=== PATIENT | male | born 1945 | race Caucasian/White ===

== ENCOUNTER 2024-02-08 19:06 | Outpatient (REF) | payer MEDICARE, MEDICAID, SELFPAY ==
[2024-02-08 12:23] LABS: Anion Gap 10.4 mmol/L (3-11); BUN 36 mg/dL (7-18); CO2 23.6 mmol/L (21.0-32.0); CREATININE 1.9 mg/dL (0.70-1.30); Calcium 9.3 mg/dL (8.5-10.1); Chloride 108 mmol/L (98-107); Estimated GFR 35.44 (mL/min/1.73m2); Glucose 90 mg/dL (74-106); Potassium 4.7 mmol/L (3.5-5.1); Sodium 142 mmol/L (136-145)
[2024-02-08 12:37] LABS: Abs Immature Grans 0.25 10^3/uL (0.0-0.06); Absolute Basophil Count 0.27 10^3/uL (0.0-0.2); Absolute Lymphocyte Count 2.67 10^3/uL (1.2-3.4); Absolute Monocyte Count 1.14 10^3/uL (0.1-0.8); Absolute Neutrophil Count 5.77 10^3/uL (1.2-6.7); Basophils % 2.6; Eosinophils % 2.9; HCT 30.9 % (40.0-50.0); HGB 9.3 g/dL (13.5-17.5); Immature Grans % 2.4; Lymphocytes % 25.7; MCHC 30.1 % (32.0-36.0); MCV 90 fL (80-95); MPV 9.6 fL (8.0-11.0); Neutrophils % 55.4; RBC 3.44 10^6/uL (4.36-5.78); RDW 15.5 % (11.8-14.1); RDW-SD 50.4 fL
[2024-02-08 13:12] LABS: Diff Comment Diff Reviewed; Platelet Count 926 10^3/uL (130-400); RBC Morphology Normal
== END 2024-02-08 19:07 | disposition home or self-care (01) ==
LOC: LBO 19:06
PROVIDERS: Visit Provider Family Medicine
DX: S42.302D Unspecified fracture of shaft of humerus, left arm, subsequent encounter for fracture with routine healing (principal); I21.4 Non-ST elevation (NSTEMI) myocardial infarction; N18.9 Chronic kidney disease, unspecified; N39.0 Urinary tract infection, site not specified; X58.XXXD Exposure to other specified factors, subsequent encounter
CPT/HCPCS: 80048; 85025

== ENCOUNTER 2024-02-18 07:33 | Outpatient (REF) | payer SELFPAY ==
[2024-02-18 09:38] LABS: Bilirubin Negative (Negative); Blood Negative (Negative); Clarity Clear (Clear); Glucose 500 mg/dL (Negative); Ketones Negative (Negative); Leukocyte Esterase Negative (Negative); Nitrite Negative (Negative); Urobilinogen 0.2 mg/dL (Up to 0.2)
== END 2024-02-18 07:34 | disposition home or self-care (01) ==
LOC: LBN 07:33
PROVIDERS: Visit Provider Nurse Practitioner Family
DX: N39.0 Urinary tract infection, site not specified (principal); E11.9 Type 2 diabetes mellitus without complications
CPT/HCPCS: 81003

== ENCOUNTER 2024-02-19 23:19 | Emergency (ER) | payer MEDICARE, MEDICAID, SELFPAY ==
[2024-02-19 23:16] VITALS: BP 120/83; PULSE 66; RESP 16; TEMP 36.5; O2SAT 98
[2024-02-19 23:31] VITALS: BP 134/60; PULSE 66
--- NOTE | 2024-02-19 23:44 | DI.RAD_ITS ---
Exam(s) CT PELVIC WO XR PELVIS AP EXAM: CT PELVIC WO and XR pelvis AP CLINICAL HISTORY: rt femur fx. TECHNIQUE: Imaging Protocol: Axial computed tomography images with coronal and sagittal reformatted images were created and reviewed. One AP x-ray view of the pelvis was obtained. COMPARISON: There are no priors for comparison. FINDINGS: There is a fracture through the base of the neck of the right femur. The fracture appears impacted. The femoral head is seated within the acetabulum. The sacroiliac joints and symphysis pubis are int act. There are mild degenerative changes seen in the lower visualized lumbar spine. There is mild j oint space narrowing of the hips bilaterally. Bones: There is an acute fracture of the right femoral neck. There is impaction and mild angulation of the fracture noted. The femoral head is seated within the acetabulum. The bones appear osteopen ic. No cellulitic or osteomyelitic changes are identified. There are degenerative changes seen in t he lower visualized lumbar spine. The sacroiliac joints are well maintained. The symphysis pubis is unremarkable. No lytic or sclerotic lesions are identified. Soft Tissues: Atherosclerotic calcifications is seen of the abdominal aorta and its runoff. There is diverticulosis of the colon without evidence of acute diverticulitis. There is diffuse thickening o f the wall of the urinary bladder. There is a moderate amount of stool in the colon which may reflec t impaction. IMPRESSION: 1. There is an acute fracture of the right femoral neck with impaction and mild angulation. 2. Diffuse thickening of the wall of the urinary bladder. Differential considerations include cystit is, underdistention or chronic bladder outlet obstruction. Please correlate clinically. 3. Findings of fecal impaction. RADIATION DOSE DELIVERED: 716.12mGy.cm Total DLP 716.12mGy.cmTotal DLP DATA REPOSITORY: All CT scans at this facility are submitted to the National Radiology Data Registry (NRDR) Dose Index Registry (DIR) with the [employer] ([employer]). RADIATION OPTIMIZATION: All CT scans at this facility use at least one of these dose optimization te chniques: automated exposure control; mA and/or kV adjustment per patient size (includes targeted exa ms where dose is matched to clinical indication); or iterative reconstruction.
[2024-02-19 23:46] VITALS: BP 153/59; PULSE 66
[2024-02-20] VITALS (14 sets, daily range): BP systolic 110–134; BP diastolic 47–69; PULSE 64–69; RESP 16; TEMP 36.4; O2SAT 98
[2024-02-20] MEDS: Ketorolac 15 MG/ML VIAL IM (00:20)
[2024-02-20] MEDS: Acetaminophen 500 MG TAB 1000 MG PO (00:20)
--- NOTE | 2024-02-20 01:50 | DI.VRAD_ITS ---
PROCEDURE INFORMATION: Exam: XR Pelvis Exam date and time: 02/20/2024 12:25 AM Age: 78 years old Clinical indication: Injury or trauma; Blunt trauma (contusions or hematomas); Bilateral; Hip; Injury date: 02/19/24; Injury details: Fall, right leg externally rotated \T\ foreshortened TECHNIQUE: Imaging protocol: Radiologic exam of the pelvis. Views: 1 or 2 view. COMPARISON: No relevant prior studies available. FINDINGS: Bones/joints: Acute mildly displaced right femoral neck fracture. No femoral head dislocation. Soft tissues: Unremarkable. IMPRESSION: Acute mildly displaced right femoral neck fracture. Dictated and Authenticated by: Leoncio Payton MD. Ordering:MARGO Fitzgerald MD
--- NOTE | 2024-02-20 01:52 | DI.VRAD_ITS ---
PROCEDURE INFORMATION: Exam: XR Left Femur Exam date and time: 02/20/2024 12:30 AM Age: 78 years old Clinical indication: Injury or trauma; Blunt trauma; Hip; Bilateral; Injury date: 02/20/24; Injury details: Fall, pain TECHNIQUE: Imaging protocol: Radiologic exam of the left femur. Views: 2 views. COMPARISON: CR XR PELVIS AP 02/20/2024 12:25 AM FINDINGS: Bones/joints: Left knee osteoarthritis. No fracture. Soft tissues: Unremarkable. IMPRESSION: No fracture. Dictated and Authenticated by: Leoncio Payton MD. Ordering:MARGO Fitzgerald MD
--- NOTE | 2024-02-20 01:54 | DI.VRAD_ITS ---
PROCEDURE INFORMATION: Exam: XR Right Femur Exam date and time: 02/20/2024 12:27 AM Age: 78 years old Clinical indication: Injury or trauma; Blunt trauma; Hip; Bilateral; Injury date: 02/19/24; Injury details: Fall, right leg externally rotated \T\ foreshortened TECHNIQUE: Imaging protocol: Radiologic exam of the right femur. Views: 2 views. COMPARISON: CR XR PELVIS AP 02/20/2024 12:25 AM FINDINGS: Bones/joints: Acute right femoral neck fracture. Soft tissues: Unremarkable. IMPRESSION: Acute right femoral neck fracture. Dictated and Authenticated by: Leoncio Payton MD. Ordering:MARGO Fitzgerald MD
[2024-02-20] MEDS: oxyCODONE 10 MG TAB PO (02:15)
--- NOTE | 2024-02-20 02:16 | ED.GENADUL_ITS ---
Discharge Plan Disposition Patient Disposition: Transfer-Acute Inpatient Care Specific Acute Inpt Facility: [facility] Condition: Stable Discharge Details Chief Complaint: Fall/Non TraumaCriteria Clinical Impression: Closed hip fracture Primary Care Provider: Evelin Wise ED Provider: Lia King Home Meds and New Rx's Prescriptions: No Action rosuvastatin 20 mg tablet 20 mg PO DAILY tamsulosin 0.4 mg capsule 0.4 mg PO DAILY thiamine HCl (vitamin B1) 100 mg tablet 100 mg PO DAILY venlafaxine 150 mg capsule,extended release 24hr 150 mg PO DAILY Patient Comments: take with 75mg venlafaxine for total of 225mg venlafaxine 75 mg tablet 75 mg PO DAILY acetaminophen 325 mg capsule 650 mg PO Q6H PRN Rx Instructions: every 5 hours as needed for mild pain aspirin 81 mg tablet,chewable 81 mg PO DAILY brinzolamide 1 % drops,suspension 1 drp ophthalmic (eye) TID carvedilol 6.25 mg tablet 6.25 mg PO BID Rx Instructions: must administer with a meal/food clopidogrel 75 mg tablet 75 mg PO DAILY bisacodyl [Dulcolax (bisacodyl)] 10 mg suppository 10 mg WV DAILY PRN empagliflozin 10 mg tablet 10 mg PO DAILY finasteride 5 mg tablet 5 mg PO DAILY Fleet Enema 19-7 gram/118 mL enema 118 ml WV DAILY PRN magnesium hydroxide [Milk of Magnesia] 400 mg/5 mL suspension 30 ml PO DAILY PRN Rx Instructions: Give 30 ml by mouth every 24 hours as needed for constipation give at bedtime if no BM in 3 days. polyethylene glycol 3350 17 gram/dose powder 17 g PO DAILY Rx Instructions: every 24 hours as needed for constipation in 4 to 8 ounces of fluid if no BM in 3 days. mirtazapine 30 mg tablet 30 mg PO QHS oxycodone 5 mg tablet 5 mg PO Q6H Rx Instructions: 1 tab by mouth every 6 hours as needed for pain for 14 days beginning on 02/16/24. prednisolone acetate 1 % drops,suspension 1 drp ophthalmic (eye) DAILY Rx Instructions: 1 drop in right eye one time per day for eye pain. HPI General Mode of arrival: EMS . Date/Time Provider Initiated Documentation: 02/19/24 23:31 . Limitations to Documentation: no limitations . Information obtained by: patient, EMS and old records reviewed . HPI Narrative: 78yo M with hx CAD, CHF, HTN, CKD3, SLIM, anemia, anxiety, depression, frequent falls, [facility] right hip pain after a fall. Was walking back to bed, went to move tray-table to the left, lost balance, and fell to the right. Landed on his right knee and hip. Right hip pain currently, otherwise denies pain or injury. No head strike or loss of consciousness. No numbness or tingling to RLE. Does not know his medical history or what medications he takes. In his usual state of health prior to this event. Related Data Home Medications Medication Instructions Recorded Confirmed acetaminophen 325 mg capsule 650 mg PO Q6H PRN 02/19/24 02/19/24 aspirin 81 mg chewable tablet 81 mg PO DAILY 02/19/24 02/19/24 bisacodyl 10 mg rectal suppository 10 mg WV DAILY PRN 02/19/24 02/19/24 (Dulcolax (bisacodyl)) brinzolamide 1 % eye 1 drp ophthalmic (eye) TID 02/19/24 02/19/24 drops,suspension carvedilol 6.25 mg tablet 6.25 mg PO BID 02/19/24 02/19/24 clopidogrel 75 mg tablet 75 mg PO DAILY 02/19/24 02/19/24 empagliflozin 10 mg tablet 10 mg PO DAILY 02/19/24 02/19/24 finasteride 5 mg tablet 5 mg PO DAILY 02/19/24 02/19/24 magnesium hydroxide 400 mg/5 mL 30 ml PO DAILY PRN 02/19/24 02/19/24 oral suspension (Milk of Magnesia) mirtazapine 30 mg tablet 30 mg PO QHS 02/19/24 02/19/24 oxycodone 5 mg tablet 5 mg PO Q6H 02/19/24 02/19/24 polyethylene glycol 3350 17 17 g PO DAILY 02/19/24 02/19/24 gram/dose oral powder prednisolone acetate 1 % eye 1 drp ophthalmic (eye) DAILY 02/19/24 02/19/24 drops,suspension rosuvastatin 20 mg tablet 20 mg PO DAILY 02/19/24 02/19/24 sodium phosphates 19 gram-7 118 ml WV DAILY PRN 02/19/24 02/19/24 gram/118 mL enema (Fleet Enema) tamsulosin 0.4 mg capsule 0.4 mg PO DAILY 02/19/24 02/19/24 thiamine HCl (vitamin B1) 100 mg 100 mg PO DAILY 02/19/24 02/19/24 tablet venlafaxine 150 mg 150 mg PO DAILY 02/19/24 02/19/24 capsule,extended release 24 hr venlafaxine 75 mg tablet 75 mg PO DAILY 02/19/24 02/19/24 Allergies Allergy/AdvReac Type Severity Reaction Status Date / Time clindamycin Allergy Unknown Anaphylaxis Verified 02/19/24 23:30 lincomycin Allergy Unknown Anaphylaxis Verified 02/19/24 23:30 Penicillins Allergy Unknown Anaphylaxis Verified 02/19/24 23:30 Fish Allergy Unknown Anaphylaxis Uncoded 02/19/24 23:30 Zyrtec Allergy Unknown Dizziness/L Uncoded 02/19/24 23:30 ighthead General Stated Complaint: Orthopedic CATIE: 4 Review of Systems Narrative: see HPI Exam Narrative Exam Narrative: General: Alert, chronically ill appearing, in no acute distress. Head: Normocephalic, atraumatic Neck: Trachea midline, ?Neck supple. ENT: ?MMM.? Cardiac: ?RRR, no murmurs appreciated Resp: No respiratory distress. CTAB. Abd: ?Soft, non-distended, nontender : ?No suprapubic tenderness. No CVA tenderness. Extremities: ?Right leg externally rotated and shortened. Sensation intact throughout. Pedal pulse palbable, brisk capillary refill. Strength limited 2/t to pain; able to wiggle toes and slight flexion/extension at knee. Neuro: GCS 15. Course Vital Signs Vital signs: Vital Signs Temperature 36.5 C 02/19/24 23:16 Pulse 66 02/19/24 23:16 Respiratory Rate 16 02/19/24 23:16 Blood Pressure 120/83 02/19/24 23:16 Pulse Oximetry 98 02/19/24 23:16 Temperature 36.5 C 02/19/24 23:16 Temperature Source Skin 02/19/24 23:16 Pulse 66 02/19/24 23:16 Respiratory Rate 16 02/19/24 23:16 Respiratory Effort Normal, Non-Labored 02/19/24 23:22 Blood Pressure 120/83 02/19/24 23:16 Blood Pressure Position Supine 02/19/24 23:16 Pulse Oximetry 98 02/19/24 23:16 Oxygen Delivery Method Room Air 02/19/24 23:16 Oxygen Flow Rate 0 02/19/24 23:16 Pain Level 8 02/19/24 23:20 Medical Decision Making 78yo M with hx CAD, CHF, HTN, CKD3, SLIM, anemia, anxiety, depression, frequent falls, presenting [facility] EMS from [facility] for right hip pain after MFFS. Vital signs reassuring, RLE externally rotated and shortened. Pulse, sensation, and motion intact; not concerned for neurovascular injury, would not get CT/CTA at this time. Tylenol/toradol for pain. Plain films femur and pelvis independently reviewed, mildly displaced femoral neck fracture on my view, agree [facility] radiology read below. IV placed and pre-op labs sent; CBC with marked leukocytosis to 17, anemia at 8.9. CMP with Cr 1.9 consistent with known chronic disease; no priors available for comparison. Added morphine for pain. Regrettably no orthopedics available at [facility] this week; [facility] or without [facility]. Discussed with [facility] orthopedics; appropriate for transfer, they would like admission to the medicine service. Requested CT for pre-op planning which was done. Discussed with [facility] hospitalist Dr. Cline and accepted to medicine service. Awaiting bed availability and transport. Signed out to oncoming physician; a follow-on note will only be written if there is a change in patient status or condition. Medical Records Medical records reviewed: Yes I reviewed the patient's medical records. Medical records narrative: paper records with rehab Imaging Data Radiologic Study: Imaging: X-Ray Radiologist's impression: IMPRESSION: Acute right femoral neck fracture. Quality:SDOH Health Related Social Needs: No Data to Display PFSH All Active Problems (Updated 02/20/24 @ 06:11 by Lia King MD) Closed hip fracture (Acute) Social History Smoking/Tobacco Use Status: Never Smoking risk assessment performed?: Yes Alcohol Intake: never Drug use: Never Substance use type: does not use Housing: [facility] Do you feel safe at home: Yes Do you feel safe in your relationship?: Yes
[2024-02-20 02:39] LABS: Abs Immature Grans 0.25 10^3/uL (0.0-0.06); Absolute Basophil Count 0.12 10^3/uL (0.0-0.2); Basophils % 0.7; HCT 28.7 % (40.0-50.0); HGB 8.9 g/dL (13.5-17.5); Immature Grans % 1.4; Lymphocytes % 7.6; MCH 27.3 pg (27.0-33.0); MCV 88 fL (80-95); MPV 9.8 fL (8.0-11.0); Monocytes % 6.4; Neutrophils % 82.9; Platelet Count 446 10^3/uL (130-400); RBC 3.26 10^6/uL (4.36-5.78); RDW 15.2 % (11.8-14.1); RDW-SD 49.2 fL; WBC 17.59 10^3/uL (4.4-10.8)
[2024-02-20 02:41] LABS: Absolute Eosinophil Count 0.18 10^3/uL (0.0-0.7); Absolute Lymphocyte Count 1.34 10^3/uL (1.2-3.4); Absolute Monocyte Count 1.13 10^3/uL (0.1-0.8); Absolute Neutrophil Count 14.58 10^3/uL (1.2-6.7)
[2024-02-20 02:52] LABS: ALT 32 U/L (16-63); AST 18 U/L (15-37); Albumin 2.7 g/dL (3.4-5.0); Alkaline Phosphatase 109 U/L (46-116); Anion Gap 10.5 mmol/L (3-11); BUN 36 mg/dL (7-18); Bilirubin, Total 0.4 mg/dL (0.2-1.0); CO2 22.5 mmol/L (21.0-32.0); CREATININE 1.9 mg/dL (0.70-1.30); Calcium 8.4 mg/dL (8.5-10.1); Chloride 108 mmol/L (98-107); Estimated GFR 35.44 (mL/min/1.73m2); Glucose 108 mg/dL (74-106); Potassium 4.1 mmol/L (3.5-5.1); Sodium 141 mmol/L (136-145); Total Protein 6.3 g/dL (6.4-8.2)
[2024-02-20] MEDS: MORPHine 4 MG/ML SYR IVP ×2 (03:45→06:13)
--- NOTE | 2024-02-20 04:00 | DI.CT_ITS ---
Exam(s) XR FEMUR LT CT LOWER EXTREMITY RT WO XR FEMUR RT EXAM: CT LOWER EXTREMITY RT WO and XR femur RT and LT CLINICAL HISTORY: femoral neck fracture (femur please). TECHNIQUE: Imaging Protocol: Axial computed tomography images with coronal and sagittal reformatted images were created and reviewed. Five x-ray views of the right femur. Five x-ray views of the left femur. COMPARISON: There are no priors for comparison. FINDINGS: Left femur: No acute fracture or dislocation is present. The bones appear mildly osteopenic. Vascul ar calcifications are seen in the soft tissues. Right femur: There is a fracture through the base of the right femoral neck. The fracture is mildly impacted. The femoral head is seated within the acetabulum. The bones are mildly osteopenic. Vascu lar calcifications are present in the soft tissues. Bones: The distal femur was not included on this examination. There is an acute fracture through th e right femoral neck. The fracture is mildly impacted and displaced. The bones appear osteopenic. No cellulitic or osteomyelitic changes are identified. The joint space is well maintained. The femo ral head is seated within the acetabulum. No lytic or sclerotic lesions are identified. Soft Tissues: Vascular calcifications are present. IMPRESSION: 1. No acute fracture of the left femur. 2. Acute impacted and mildly displaced fracture through the right femoral neck. RADIATION DOSE DELIVERED: 716.12mGy.cm Total DLP 716.12mGy.cm Total DLP DATA REPOSITORY: All CT scans at this facility are submitted to the National Radiology Data Registry (NRDR) Dose Index Registry (DIR) with the [employer] ([employer]). RADIATION OPTIMIZATION: All CT scans at this facility use at least one of these dose optimization te chniques: automated exposure control; mA and/or kV adjustment per patient size (includes targeted exa ms where dose is matched to clinical indication); or iterative reconstruction.
--- NOTE | 2024-02-20 04:00 | RT.EKG_ITS ---
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
[2024-02-20 04:32] LABS: INR 1.1 (0.9-1.1); PTT Activated 26.7 sec (23.6-32.8); Prothrombin Time 10.9 sec (9.1-11.1)
--- NOTE | 2024-02-20 05:18 | DI.VRAD_ITS ---
PROCEDURE INFORMATION: Exam: CT Pelvis Without Contrast; Skeletal Exam date and time: 02/20/2024 4:25 AM Age: 78 years old Clinical indication: Injury or trauma; Fall; Fracture of pelvis \T\ hip; Right; Traumatic fracture; Neck of femur; Not specified; Injury date: 02/19/24; Injury details: RT femur FX TECHNIQUE: Imaging protocol: Computed tomography of the pelvis without contrast. Exam focused on the skeleton. Radiation optimization: All CT scans at this facility use at least one of these dose optimization techniques: automated exposure control; mA and/or kV adjustment per patient size (includes targeted exams where dose is matched to clinical indication); or iterative reconstruction. COMPARISON: CR XR PELVIS AP 02/20/2024 12:25 AM FINDINGS: Intestine: Rectum is distended to 7.5 cm with formed stool. Mild presacral stranding. Findings are compatible fecal impaction. Colonic diverticulosis. Reproductive: Left inguinal hernia containing small amount of fat and a 4.7 cm pocket of fluid versus the left testicle. Urinary bladder: Inflammatory thickening of the wall of the urinary bladder consistent with cystitis. Bones/joints: Acute right femoral neck fracture, mildly displaced. Soft tissues: See Reproductive finding. IMPRESSION: 1. Acute right femoral neck fracture, mildly displaced. 2. Rectum is distended to 7.5 cm with formed stool. Mild presacral stranding. Findings are compatible fecal impaction. 3. Cystitis. Dictated and Authenticated by: Leoncio Payton MD. Ordering:MARGO Fitzgerald MD
--- NOTE | 2024-02-20 05:25 | DI.VRAD_ITS ---
PROCEDURE INFORMATION: Exam: CT Right Lower Extremity Without Contrast Exam date and time: 02/20/2024 4:25 AM Age: 78 years old Clinical indication: Injury or trauma; Fall; Fracture, traumatic; Closed fracture; Right; Neck of femur (hip); Injury date: 02/19/24; Injury details: RT femur FX TECHNIQUE: Imaging protocol: CT of the right lower extremity without contrast was performed. Radiation optimization: All CT scans at this facility use at least one of these dose optimization techniques: automated exposure control; mA and/or kV adjustment per patient size (includes targeted exams where dose is matched to clinical indication); or iterative reconstruction. COMPARISON: CR XR FEMUR RT 02/20/2024 12:27 AM FINDINGS: Bones/joints: Acute mildly displaced right femoral neck fracture. Soft tissues: Normal. Stomach: Fecal impaction in the rectum. Urinary bladder: Inflammatory thickening of the wall of the urinary bladder consistent with cystitis. IMPRESSION: 1. Acute mildly displaced right femoral neck fracture. 2. Fecal impaction in the rectum. 3. Cystitis. Dictated and Authenticated by: Leoncio Payton MD. Ordering:MARGO Fiztgerald MD
[2024-02-20 06:19] LABS: Creatine Kinase 32 U/L (39-308)
--- NOTE | 2024-02-21 10:29 | NUR.NOTE ---
Accessed chart to determine staff for patient in order to complete transfer forms. Nursing Note:
== END 2024-02-20 08:02 | disposition short-term general hospital (02) ==
PROVIDERS: Emergency Provider Student in an Organized Health Care Education/Training Program; PCP Nurse Practitioner Family
DX: S72.044A Nondisplaced fracture of base of neck of right femur, initial encounter for closed fracture (principal); I25.10 Atherosclerotic heart disease of native coronary artery without angina pectoris; I13.0 Hypertensive heart and chronic kidney disease with heart failure and stage 1 through stage 4 chronic kidney disease, or unspecified chronic kidney disease; N18.30 Chronic kidney disease, stage 3 unspecified; I50.9 Heart failure, unspecified; Z79.82 Long term (current) use of aspirin; Z79.02 Long term (current) use of antithrombotics/antiplatelets; W18.39XA Other fall on same level, initial encounter; Y93.01 Activity, walking, marching and hiking; Y92.013 Bedroom of single-family (private) house as the place of occurrence of the external cause
CPT/HCPCS: 73552; 80053; 82550; 93005; 96372; 96374; 96375; 96376; 99285; 72170; 72192; 73700; 85025; 85610; 85730; 93010; J1885; J2270

== ENCOUNTER 2024-03-04 08:12 | Outpatient (REF) | payer MEDICARE, MEDICAID, SELFPAY ==
[2024-03-05 08:21] LABS: Bilirubin Negative (Negative); Blood Negative (Negative); Clarity Clear (Clear); Glucose 500 mg/dL (Negative); Ketones Negative (Negative); Leukocyte Esterase Negative (Negative); Nitrite Negative (Negative); Urobilinogen 0.2 mg/dL (Up to 0.2)
== END 2024-03-04 08:13 | disposition home or self-care (01) ==
LOC: LBN 08:12
PROVIDERS: PCP Nurse Practitioner Family; Visit Provider Family Medicine
DX: R82.998 Other abnormal findings in urine (principal); Z87.440 Personal history of urinary (tract) infections
CPT/HCPCS: 81003; 87086

== ENCOUNTER 2024-03-09 22:12 | Inpatient (IN) | payer MEDICARE, MEDICAID, SELFPAY ==
[2024-03-09] VITALS (105 sets, daily range): BP systolic 80–134; BP diastolic 40–117; PULSE 64–96; RESP 15–34; TEMP 35.9–36.6; O2SAT 78–100
--- NOTE | 2024-03-09 22:00 | RT.EKG_ITS ---
APPROVED REPORT Exam: Resting ECG Reason for Exam: gib Patient Location: E HR:80 bpm ECG Measurements Heart Rate 80 AXIS AZ 96 P -23 QRSd 129 QRS -15 QT 404 T [id number] QTc 466 Conclusion sinus 80 no stemi
[2024-03-09 22:26] LABS: Abs Immature Grans 0.45 10^3/uL (0.0-0.06); MCH 27.4 pg (27.0-33.0); MCHC 31.3 % (32.0-36.0); MCV 88 fL (80-95); MPV 9.6 fL (8.0-11.0); RBC 2.08 10^6/uL (4.36-5.78); RDW 15.3 % (11.8-14.1); RDW-SD 48.9 fL; WBC 20.48 10^3/uL (4.4-10.8)
[2024-03-09 22:27] LABS: HGB 5.7 g/dL (13.5-17.5)
[2024-03-09 22:28] LABS: HCT 18.2 % (40.0-50.0)
[2024-03-09] MEDS: Pantoprazole 40 MG VIAL 80 MG IVP (22:35)
[2024-03-09] MEDS: Famotidine 20 MG/2 ML VIAL IVP (22:35)
[2024-03-09] MEDS: Normal Saline 1,000 ML 1000 ML IV (22:36)
[2024-03-09] MEDS: Ondansetron 4 MG/2 ML VIAL IVP (22:37)
[2024-03-09 22:39] LABS: Diff Comment Diff Reviewed; Hypochromasia 2+
--- NOTE | 2024-03-09 22:39 | ED.GENADUL_ITS ---
Discharge Plan Disposition Patient Disposition: Admit to [facility] Condition: Improving Discharge Details Chief Complaint: GI Bleed Clinical Impression: Hemorrhagic shock, Acute upper GI bleed Primary Care Provider: Evelin Wise ED Provider: Christiano Enamorado Home Meds and New Rx's Prescriptions: No Action rosuvastatin 20 mg tablet 20 mg PO DAILY tamsulosin 0.4 mg capsule 0.4 mg PO DAILY thiamine HCl (vitamin B1) 100 mg tablet 100 mg PO DAILY venlafaxine 150 mg capsule,extended release 24hr 150 mg PO DAILY Patient Comments: take with 75mg venlafaxine for total of 225mg venlafaxine 75 mg tablet 75 mg PO DAILY acetaminophen 325 mg capsule 650 mg PO Q6H PRN Rx Instructions: every 5 hours as needed for mild pain aspirin 81 mg tablet,chewable 81 mg PO DAILY brinzolamide 1 % drops,suspension 1 drp ophthalmic (eye) TID carvedilol 6.25 mg tablet 6.25 mg PO BID Rx Instructions: must administer with a meal/food clopidogrel 75 mg tablet 75 mg PO DAILY bisacodyl [Dulcolax (bisacodyl)] 10 mg suppository 10 mg UT DAILY PRN empagliflozin 10 mg tablet 10 mg PO DAILY finasteride 5 mg tablet 5 mg PO DAILY Fleet Enema 19-7 gram/118 mL enema 118 ml UT DAILY PRN magnesium hydroxide [Milk of Magnesia] 400 mg/5 mL suspension 30 ml PO DAILY PRN Rx Instructions: Give 30 ml by mouth every 24 hours as needed for constipation give at bedtime if no BM in 3 days. polyethylene glycol 3350 17 gram/dose powder 17 g PO DAILY Rx Instructions: every 24 hours as needed for constipation in 4 to 8 ounces of fluid if no BM in 3 days. mirtazapine 30 mg tablet 30 mg PO QHS oxycodone 5 mg tablet 5 mg PO Q6H Rx Instructions: 1 tab by mouth every 6 hours as needed for pain for 14 days beginning on 02/16/24. prednisolone acetate 1 % drops,suspension 1 drp ophthalmic (eye) DAILY Rx Instructions: 1 drop in right eye one time per day for eye pain. HPI General Date/Time Provider Initiated Documentation: 03/09/24 22:17 . HPI Narrative: This is a 78-year-old male who has a past medical history of coronary artery disease/triple-vessel disease status post PCI to the mid LAD in January 2024, heart failure with an ejection fraction of 40 to 45%, chronic kidney disease, obstructive sleep apnea, prior GI bleeds, history of anemia, recurrent falls, glaucoma, depression, prior homelessness, left humerus fracture in December 2023 which led to a hospital stay, an episode of septic versus cardiogenic shock along with an NSTEMI, ROGER and CKD with urinary obstruction and rhabdomyolysis, eventual cardiac catheterization and discharge. He was then sent to rehab where he again fell on February 19 and developed a right femoral neck fracture. He was transferred to [facility] and surgically managed there. He was then sent back to [facility] rehab about a week and a half ago. He is on aspirin and Plavix. This evening he had an episode of large melanotic stool and vomited a large amount of bright red blood. He states that this started earlier this morning, but nursing staff at the facility could not confirm. EMS brought the patient to the emergency department for further evaluation. Patient very clearly states that he is a full code. Patient denies any chest pain or shortness of breath. He denies any abdominal pain. He does admit to having previous GI bleeds in the past. Patient denies a history of alcoholism in the past. He states that he never had a GI bleed like this before. He never vomited blood before. Patient is currently on dual antiplatelet therapy of aspirin 81 mg daily and Plavix. Related Data Home Medications Medication Instructions Recorded Confirmed acetaminophen 325 mg capsule 650 mg PO Q6H PRN 02/19/24 02/19/24 aspirin 81 mg chewable tablet 81 mg PO DAILY 02/19/24 02/19/24 bisacodyl 10 mg rectal suppository 10 mg UT DAILY PRN 02/19/24 02/19/24 (Dulcolax (bisacodyl)) brinzolamide 1 % eye 1 drp ophthalmic (eye) TID 02/19/24 02/19/24 drops,suspension carvedilol 6.25 mg tablet 6.25 mg PO BID 02/19/24 02/19/24 clopidogrel 75 mg tablet 75 mg PO DAILY 02/19/24 02/19/24 empagliflozin 10 mg tablet 10 mg PO DAILY 02/19/24 02/19/24 finasteride 5 mg tablet 5 mg PO DAILY 02/19/24 02/19/24 magnesium hydroxide 400 mg/5 mL 30 ml PO DAILY PRN 02/19/24 02/19/24 oral suspension (Milk of Magnesia) mirtazapine 30 mg tablet 30 mg PO QHS 02/19/24 02/19/24 oxycodone 5 mg tablet 5 mg PO Q6H 02/19/24 02/19/24 polyethylene glycol 3350 17 17 g PO DAILY 02/19/24 02/19/24 gram/dose oral powder prednisolone acetate 1 % eye 1 drp ophthalmic (eye) DAILY 02/19/24 02/19/24 drops,suspension rosuvastatin 20 mg tablet 20 mg PO DAILY 02/19/24 02/19/24 sodium phosphates 19 gram-7 118 ml UT DAILY PRN 02/19/24 02/19/24 gram/118 mL enema (Fleet Enema) tamsulosin 0.4 mg capsule 0.4 mg PO DAILY 02/19/24 02/19/24 thiamine HCl (vitamin B1) 100 mg 100 mg PO DAILY 02/19/24 02/19/24 tablet venlafaxine 150 mg 150 mg PO DAILY 02/19/24 02/19/24 capsule,extended release 24 hr venlafaxine 75 mg tablet 75 mg PO DAILY 02/19/24 02/19/24 Allergies Allergy/AdvReac Type Severity Reaction Status Date / Time clindamycin Allergy Unknown Anaphylaxis Verified 03/09/24 23:23 lincomycin Allergy Unknown Anaphylaxis Verified 03/09/24 23:23 Penicillins Allergy Unknown Anaphylaxis Verified 03/09/24 23:23 Fish Allergy Unknown Anaphylaxis Uncoded 03/09/24 23:23 Zyrtec Allergy Unknown Dizziness/L Uncoded 03/09/24 23:23 ighthead General Stated Complaint: GI Bleed CATIE: 2 Review of Systems All systems reviewed & are unremarkable except as noted in HPI and below Exam Narrative Exam Narrative: 1.Const: Disheveled, pale 2.Eyes: PERRL, no conjunctival injection, and symmetrical lids. 3.ENT: Atraumatic external nose and ears. Dry MM. Neck: Symmetric, trachea midline, No thyromegaly. 4.CVS: +S1/S2, No murmurs or gallops. Peripheral pulses 2+ and equal in all extremities. Brisk capillary refill in all extremities. 5.RESP: Unlabored respiratory effort. Clear to auscultation bilaterally. No wheezes rales or rhonchi 6.GI: Soft, Nontender/Nondistended, No hepatosplenomegaly. No guarding or rebound. Notable amount of black tarry stool in his brief. 7.MSK: Normocephalic/Atraumatic, Extremities w/o deformity or ttp No cyanosis or clubbing, Normal movement of all extremities 8.Skin: Warm, Dry. Pale in color. No rashes or lesions. Bruise over the left forearm. 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 Sensation grossly intact, no focal neurologic deficits. 10.Psych: (AAO) x3. Appropriate mood and affect Course Vital Signs Vital signs: Vital Signs Pulse 79 03/09/24 22:12 Respiratory Rate 23 03/09/24 22:12 Blood Pressure 134/117 H 03/09/24 22:12 Pulse 79 03/09/24 22:12 Respiratory Rate 23 03/09/24 22:12 Respiratory Effort Normal, Non-Labored 03/09/24 22:22 Blood Pressure 134/117 H 03/09/24 22:12 Blood Pressure Position Sitting 03/09/24 22:12 Oxygen Delivery Method Room Air 03/09/24 22:12 Oxygen Flow Rate 0 03/09/24 22:12 Pain Level 6 03/09/24 22:12 Lab/Test Results Lab/Test Results: Laboratory Tests Range/Units 03/09/24 22:18 Blood Type Recheck Cancelled Crossmatch See Detail Medical Decision Making This is a 78-year-old male who has a past medical history of coronary artery disease/triple-vessel disease status post PCI to the mid LAD in January 2024, heart failure with an ejection fraction of 40 to 45%, chronic kidney disease, obstructive sleep apnea, prior GI bleeds, history of anemia, recurrent falls, glaucoma, depression, prior homelessness, left humerus fracture in December 2023 which led to a hospital stay, an episode of septic versus cardiogenic shock along with an NSTEMI, ROGER and CKD with urinary obstruction and rhabdomyolysis, eventual cardiac catheterization and discharge. He was then sent to rehab where he again fell on February 19 and developed a right femoral neck fracture. He was transferred to [facility] and surgically managed there. He was then [facility] about a week and a half ago. He is on aspirin and Plavix. This evening he had an episode of large melanotic stool and vomited a large amou nt of bright red blood. He states that this started earlier this morning, but nursing staff at the facility could not confirm. EMS brought the patient to the emergency department for further evaluation. Patient very clearly states that he is a full code. Patient denies any chest pain or shortness of breath. He denies any abdominal pain. He does admit to having previous GI bleeds in the past. Patient denies a history of alcoholism in the past. He states that he never had a GI bleed like this before. He never vomited blood before. Patient is currently on dual antiplatelet therapy of aspirin 81 mg daily and Plavix. On EMS arrival patient's blood pressure was in the 80s systolic, heart rate was normal. 500 cc of normal saline were started en route. Upon arrival patient was pale, heart rate normal, blood pressure atypically elevated. Notable amount of stool in his brief, stool was dark tarry melena. No abdominal pain or tenderness. While here patient had another episode of vomiting up blood clots, but this time only about half a cup. Within a few minutes of his arrival his blood pressure transitioned back to the 80s systolic. Decision was made to immediately start blood. Rapid transfusion protocol was started, 2 units of PRBCs were started. We will give Protonix infusion, famotidine bolus, Carafate, Zofran. Patient denies any history of excessive alcohol in the past or varices. Review of [facility] history does not show any history of known varices. Suspect gastric ulcer secondary to dual antiplatelet therapy with subsequent bleed. Will get labs, monitor closely and reassess. 2 large-bore IVs will be established, respiratory therapy is on standby for potential intubation if indicated. 11:11 PM On reassessment, 2 units of PRBCs have been administered without complication. Blood pressure is now in the 100 systolic. Heart rate remained stable. Oxygen remained stable. Laboratory workup reveals white count of 20, hemoglobin of 5.7 which is a notable drop from his prior level of 9. Platelets are elevated at 623. No indication for platelet supplementation. 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 Patient has had no additional episodes of vomiting blood since here except for the episode that occurred upon his immediate arrival here. Blood pressure has improved. 2 units of blood have been administered, however we are still waiting for the third unit. Once this arrives we will continue to administer this slowly get a repeat H&H. I do feel that he would benefit from admission, continue close monitoring. Contacted surgery, Dr. Reynaga. He recommends admission to the medical service, continued Protonix, and serial H&H's. We will reach out to Dr. Jordan of the hospitalist team. 11:35 PM Patient was reassessed, no additional vomiting. Blood pressure remains in the 100 systolic. Heart rate stable. Patient states that he is feeling better. At this time I do feel that based on his current clinical assessment he is appropriate for ICU admission. Discussed the case with hospitalist Dr. Jordan, he agrees with the assessment and plan. Patient will be admitted for continued blood monitoring, IV PPIs, and assessment. I have extensively reviewed the treatment plan with the patient. I have addressed all patient concerns at this time. I have also discussed the plan with the admitting physician and they agree with the current assessment and plan and have agreed to assume responsibility for the patient. All parties demonstrate verbal understanding and agreement with our assessment and plan at this time. The documentation in this chart was dictated using [employer]alle[employer] dictation software. Please excuse any dictation errors. Quality:SDOH Health Related Social Needs: No Data to Display Critical Care Time Critical Care Time Critical Care Time: Yes Total Critical Care Time: 70 Attestation: Upon my evaluation, this patient had a high probability of imminent or life- threatening deterioration, which required my direct attention, intervention, and personal management. I have personally provided 70 minutes of critical care time exclusive of time spent on separately billable procedures. Time includes review of laboratory data, radiology results, discussion with consultants, and monitoring for potential decompensation. Interventions were performed as documented. PFSH All Active Problems (Updated 03/09/24 @ 23:40 by Christiano Enamorado DO) Acute upper GI bleed (Acute) Hemorrhagic shock (Acute) GI bleeding (Acute) Closed hip fracture (Acute) Social History Smoking/Tobacco Use Status: Never Smoking risk assessment performed?: Yes Alcohol Intake: never Drug use: Never Substance use type: does not use Housing: apartment Do you feel safe at home: Yes Do you feel safe in your relationship?: Yes
[2024-03-09 22:40] LABS: Absolute Lymphocyte Count 1.23 10^3/uL (1.2-3.4); Absolute Monocyte Count 0.41 10^3/uL (0.1-0.8); Absolute Neutrophil Count 18.84 10^3/uL (1.2-6.7); Platelet Count 623 10^3/uL (130-400)
[2024-03-09] MEDS: Sucralfate 1 GM TAB 2 GM PO (22:47)
[2024-03-09 22:48] LABS: INR 1.2 (0.9-1.1); PTT Activated 26.1 sec (23.6-32.8); Prothrombin Time 11.7 sec (9.1-11.1)
--- NOTE | 2024-03-09 22:48 | W.SURGCON ---
Date of service: 03/09/24 Time of Service: 22:48 Assessment and Plan Assessment and plan (1) GI bleeding: Status: Acute Assessment and plan: 78 yo man wth gi bleeding in setting of dual anti-platelet therapy. Potentially HD unstable, though vitals signs reportedly stable. Standard admission and recommendations: * Admission to medical/hospitalist service in the ICU * No crystalloid -- permissive hypotension, transfuse PRBCs only * Transfuse 2 units and crossmatch 2 more. Transfuse 4 if HD unstable. * Q6H Hgb/Hct * reversal of AC (in this case, reversal of Plavix and ASA does not exist) * If becomes/remains unstable, transfuse platelets as well. * 2 large-bore (16 ga) PIV (one in each extremity) * High dose PPI BID, anti-secretory medication, Sucralfate, empiric H. Pylori therapy and discretionary PO intake * Sandostatin(Octreotide) may play a helpful role and can be given as well * Emergent EGD/Colonoscopy indicated for patients who do not respond to transfusion (remain hypotensive, tachycardic despite transfusion of 4+ units and reversal of anti-coagulation/anti-platelet therapy) * IR embolization ideal management strategy if endoscopic measures fail * surgical exploration (Ex-lap with resection or over-sewing) indicated only as extreme, very-last, life-saving resort in select patients and when bleeding source identified. Very morbid and sometimes unsuccessful intervention. Overall: Surgery team will continue to follow patient along with the hospitalist service performing critical care History of Present Illness History of Present Illness Chief Complaint: gi bleed Narrative: 78 yo man reportedly on ASA and Plavix started having melanotic stools per rectum and vomiting some blood a few hours ago. HR 79, SBP 134 No abdominal pain or inciting symptoms other than the bleeding per ED provider. Brought in by EMS. Reportedly about to get his first unit of blood. PFSH All Active Problems (Updated 03/09/24 @ 22:52 by Ron Reynaga MD) GI bleeding (Acute) Closed hip fracture (Acute) Social History Smoking/Tobacco Use Status: Never Smoking risk assessment performed?: Yes Alcohol Intake: never Drug use: Never Substance use type: does not use Housing: apartment Do you feel safe at home: Yes Do you feel safe in your relationship?: Yes Exam Narrative Exam Narrative: Per ER provider: Still having melanotic stools at bedside. Results Last Vital Signs Pulse 79 03/09/24 22:12 Resp 23 03/09/24 22:12 BP 134/117 H 03/09/24 22:12 Labs 03/09/24 22:18 03/09/24 22:18 Labs: Laboratory Results - last 24 hr 03/09/24 22:18 WBC 20.48 H RBC 2.08 L Hgb 5.7 L* Hct 18.2 L* MCV 88 MCH 27.4 MCHC 31.3 L RDW 15.3 H Plt Count 623 H MPV 9.6 Immature Gran % 0.0 Neutrophils % 92.0 Lymphocytes % 6.0 Monocytes % 2.0 Eosinophils % 0.0 Basophils % 0.0 Nucleated RBC % 0.0 Absolute Neutrophils 18.84 H Absolute Lymphocytes 1.23 Absolute Monocytes 0.41 Absolute Eosinophils 0.00 Absolute Basophils 0.00 RBC Morphology See Below Hypochromasia 2+ Blood Type Recheck Cancelled Crossmatch See Detail
[2024-03-09 22:52] LABS: ALT 69 U/L (16-63); AST 21 U/L (15-37); Albumin 2.1 g/dL (3.4-5.0); Alkaline Phosphatase 139 U/L (46-116); Anion Gap 16.2 mmol/L (3-11); Bilirubin, Total 0.3 mg/dL (0.2-1.0); CO2 16.8 mmol/L (21.0-32.0); CREATININE 2.2 mg/dL (0.70-1.30); Calcium 7.9 mg/dL (8.5-10.1); Chloride 105 mmol/L (98-107); Estimated GFR 29.72 (mL/min/1.73m2); Glucose 188 mg/dL (74-106); Magnesium 2.6 mg/dL (1.8-2.4); Potassium 4.4 mmol/L (3.5-5.1); Sodium 138 mmol/L (136-145); Total Protein 5.8 g/dL (6.4-8.2); Troponin I < 50 ng/L (< or =60)
[2024-03-09 22:57] LABS: BUN 94 mg/dL (7-18)
--- NOTE | 2024-03-09 23:40 | W.PM.HP.N ---
Date of service: 03/09/24 Time of Service: 23:41 Assessment and Plan Assessment and plan (1) Acute upper GI bleed: Start date: 03/09/24 Status: Acute Assessment and plan: This is a 78-year-old gentleman who has had a difficult course of the last months now with acute upper GI bleed appearing to be from the stomach with gross hematemesis, azotemia and significant drop in his hemoglobin from his baseline around 9 g/dL. He will be transfused with 3 units of packed red blood cells with follow-up every 4 hour CBC and if he needs a fourth unit packed red blood cells he will receive fresh frozen plasma. His Plavix and aspirin will be held with risk greater than benefit at this time. He has had a recent cardiac stent. He also has reduced left ventricular action fraction with CHF with treatment to continue for this and watch closely for exacerbation as we given the volume of blood transfusion. We will avoid IV fluid resuscitation at this time. Patient is a full code. (2) Hemorrhagic shock: Start date: 03/09/24 Status: Acute Assessment and plan: Patient did have hypotension with his acute anemia and blood loss which has responded to blood transfusion. Continue to monitor with low-dose of Coreg if patient tolerates because of recent cardiac events and CHF. (3) Acute blood loss anemia: Start date: 03/09/24 Status: Chronic Assessment and plan: Transfuse with surgical consultation for EGD. Further imaging is advised. (4) CAD (coronary artery disease), [place] coronary artery: Status: Chronic Assessment and plan: Hold Plavix and aspirin temporarily until surgery can evaluate. Continue other cardiac meds as tolerated. Decrease Coreg dose because of hypotension. Qualifiers: Associated angina: without angina Cheesh-Na vs. transplanted heart: [place] heart Qualified Code(s): I25.10 - Atherosclerotic heart disease of [place] coronary artery without angina pectoris (5) Depression: Status: Chronic Assessment and plan: Continue antidepressants. Qualifiers: Depression Type: other depression Qualified Code(s): F32.89 - Other specified depressive episodes (6) Hyperlipidemia: Status: Chronic Assessment and plan: Continue statin therapy. Qualifiers: Hyperlipidemia type: mixed hyperlipidemia Qualified Code(s): E78.2 - Mixed hyperlipidemia (7) BPH (benign prostatic hyperplasia): Status: Chronic Assessment and plan: Continue Flomax and Proscar. Qualifiers: Lower urinary tract symptom presence: unspecified whether lower urinary tract symptoms present Qualified Code(s): N40.0 - Benign prostatic hyperplasia without lower urinary tract symptoms History of Present Illness History of Present Illness Chief Complaint: Vomiting blood Narrative: This is a 78-year-old male patient with a past medical history of fall with left humerus fracture in December 2023 which led to a hospitalization with an episode of septic versus cardiogenic shock along with non-STEMI and ROGER with CKD. He did have urinary infection and rhabdomyolysis and eventually was transferred to [facility] where he had cardiac catheterization revealing triple-vessel disease status post PCI to the mid LAD in January 2024. He also had heart failure with ejection fraction of 40 to 45%. He does have a history of SLIM not on treatment. After the above events he was in rehabilitation when he fell fracturing his right hip and was rehospitalized for repair. He was transferred to [facility] for that management. He was sent back to the rehab facility and he was continuously on dual antiplatelet therapy with aspirin and Plavix. Morning of admission he began to have nausea with some vomiting of the large amount of bright red blood as well as an episode of melanotic stool later in the day. EMS was called and patient was brought to emergency room for evaluation. He was found to be profoundly anemic but was not having shortness of breath or chest discomfort. He has had previous GI bleeds in the past but not of this degree. He has never had hematemesis. Exam is on the patient he was comfortable in bed and awake enough to give short answers but would fall asleep easily. He remains a full code. Review of Systems Narrative: 13 point review of systems otherwise unrevealing or stable/unobtainable with patient's drowsiness. PFSH All Active Problems (Updated 03/10/24 @ 06:43 by Kenroy Jordan) BPH (benign prostatic hyperplasia) (Chronic) Hyperlipidemia (Chronic) Depression (Chronic) CAD (coronary artery disease), [place] coronary artery (Chronic) Acute blood loss anemia (Chronic) Acute upper GI bleed (Acute) Hemorrhagic shock (Acute) GI bleeding (Acute) Closed hip fracture (Acute) Social History Smoking/Tobacco Use Status: Never Smoking risk assessment performed?: Yes Alcohol Intake: never Drug use: Never Substance use type: does not use Housing: apartment Do you feel safe at home: Yes Do you feel safe in your relationship?: Yes Meds Allergies and Home Medications Allergies Allergy/AdvReac Type Severity Reaction Status Date / Time clindamycin Allergy Unknown Anaphylaxis Verified 03/09/24 23:23 lincomycin Allergy Unknown Anaphylaxis Verified 03/09/24 23:23 Penicillins Allergy Unknown Anaphylaxis Verified 03/09/24 23:23 Fish Allergy Unknown Anaphylaxis Uncoded 03/09/24 23:23 Zyrtec Allergy Unknown Dizziness/L Uncoded 03/09/24 23:23 ighthead Home Medications Medication Instructions Recorded Confirmed Type acetaminophen 325 mg capsule 650 mg PO Q6H PRN 02/19/24 03/10/24 History aspirin 81 mg chewable tablet 81 mg PO DAILY 02/19/24 03/10/24 History bisacodyl 10 mg rectal suppository 10 mg NH DAILY PRN 02/19/24 03/10/24 History (Dulcolax (bisacodyl)) brinzolamide 1 % eye 1 drp ophthalmic (eye) TID 02/19/24 03/10/24 History drops,suspension carvedilol 6.25 mg tablet 6.25 mg PO BID 02/19/24 03/10/24 History clopidogrel 75 mg tablet 75 mg PO DAILY 02/19/24 03/10/24 History empagliflozin 10 mg tablet 10 mg PO DAILY 02/19/24 03/10/24 History finasteride 5 mg tablet 5 mg PO DAILY 02/19/24 03/10/24 History magnesium hydroxide 400 mg/5 mL 30 ml PO DAILY PRN 02/19/24 03/10/24 History oral suspension (Milk of Magnesia) mirtazapine 30 mg tablet 30 mg PO QHS 02/19/24 03/10/24 History oxycodone 5 mg tablet 5 mg PO Q6H 02/19/24 03/10/24 History polyethylene glycol 3350 17 17 g PO DAILY 02/19/24 03/10/24 History gram/dose oral powder prednisolone acetate 1 % eye 1 drp ophthalmic (eye) DAILY 02/19/24 03/10/24 History drops,suspension rosuvastatin 20 mg tablet 20 mg PO DAILY 02/19/24 03/10/24 History sodium phosphates 19 gram-7 118 ml NH DAILY PRN 02/19/24 03/10/24 History gram/118 mL enema (Fleet Enema) tamsulosin 0.4 mg capsule 0.4 mg PO DAILY 02/19/24 03/10/24 History thiamine HCl (vitamin B1) 100 mg 100 mg PO DAILY 02/19/24 03/10/24 History tablet venlafaxine 150 mg 150 mg PO DAILY 02/19/24 03/10/24 History capsule,extended release 24 hr venlafaxine 75 mg tablet 75 mg PO DAILY 02/19/24 03/10/24 History Exam Narrative Exam Narrative: General: Patient appears appropriate for age, pale, easily arousable and alert and oriented at least to place and person. He is drowsy. Is in no acute distress. HEENT: Normocephalic, eyes with pupils equal and reactive to light symmetrically with dense arcus senilis bilaterally, extraocular movement intact and sclera anicteric. Oropharynx with dry mucosa and poor dentition. Neck: Supple without JVD. Back: Kyphotic without CVA tenderness. Lungs: Decreased aeration diffusely but good air movement. No focalizing rales or rhonchi. No expiratory wheeze. Heart: Distant heart sounds with regular rate and rhythm and no appreciable murmur or gallop. Abdomen: Slightly obese contour, soft and nontender to palpation with no palpable hepatosplenomegaly. No guarding or rebound. Bowel sounds positive all quadrants. Genitalia/rectal: Exam deferred. Extremities: Without clubbing, cyanosis or pitting edema. Well-healed scar right hip. Bruising over left upper arm and shoulder. Fair capillary refill. Skin: Pale, warm and dry with bruise over left shoulder as mentioned. Neuro: Cranial nerves II through XII appear grossly intact, no focal motor deficits but patient generally weak. No tremor. Psych: Flattened affect and depressed mood the patient drowsy during exam but arousable. He appears fatigued. Remote memory and recent memory not testable with patient drowsy. Results Imaging Imaging Studies: No recent imaging but previous images for fractures were reviewed. Surgery consulted and will image if being important to evaluate abdomen and pelvis with patient having CKD and contrast at this time being avoided. Labs 03/10/24 02:50 03/09/24 22:18 Labs: Laboratory Results - last 24 hr 03/09/24 22:18 WBC 20.48 H RBC 2.08 L Hgb 5.7 L* Hct 18.2 L* MCV 88 MCH 27.4 MCHC 31.3 L RDW 15.3 H Plt Count 623 H MPV 9.6 Immature Gran % 0.0 Neutrophils % 92.0 Lymphocytes % 6.0 Monocytes % 2.0 Eosinophils % 0.0 Basophils % 0.0 Nucleated RBC % 0.0 Absolute Neutrophils 18.84 H Absolute Lymphocytes 1.23 Absolute Monocytes 0.41 Absolute Eosinophils 0.00 Absolute Basophils 0.00 RBC Morphology See Below Hypochromasia 2+ PT 11.7 H INR 1.2 H APTT 26.1 Sodium 138 Potassium 4.4 Chloride 105 Carbon Dioxide 16.8 L Anion Gap 16.2 H BUN 94 H* Creatinine 2.2 H Est GFR (CKD-EPI 2020) 29.72 Glucose 188 H Calcium 7.9 L Magnesium 2.6 H Total Bilirubin 0.3 AST 21 ALT 69 H Alkaline Phosphatase 139 H Troponin I < 50 Total Protein 5.8 L Albumin 2.1 L ABO/Rh A Negative Blood Type Recheck Cancelled Antibody Screen NEGATIVE Crossmatch See Detail Last Vital Signs Temp 36.6 C 03/09/24 23:21 Pulse 70 03/09/24 23:19 Resp 23 03/09/24 23:20 BP 109/41 L 03/09/24 23:19 Pulse Ox 99 03/09/24 23:20 Time Spent Time spent with Patient: >75 minutes Time was spent: preparing to see the patient(eg.review tests), obtaining and/or reviewing separately otained hiistory, ordering medications,tests, procedures, referring, communicating with other health resident care technician, indepentently interpreting results and care coordination
--- NOTE | 2024-03-09 23:56 | NUR.NOTE ---
2243: Pt arrived from [facility] and rehab via [facility]. Pt reports nausea/vomiting and diarrhea all day. Staff reported to EMS that he only just started to have bright red bloody emesis and dark red/melena brown diarrhea just prior to EMS being called. Pt c/o severe pain 'in my backside from all the wiping they've been doing. It's killing me.' Repositioned w/ RN José Luis and Fei at bedside w/ this RN. Copious amounts of soft, melena colored stool per rectum w/ some red blood. Skin in and around gluteal cleft severely excoriated w/ some noted open wound areas noted. Pt cleaned and repositioned, viscous lidocaine administered to excoriated skin w/ barrier cream to provide some pain relief w/ good results.
[2024-03-10] VITALS (123 sets, daily range): BP systolic 85–144; BP diastolic 40–89; PULSE 62–80; RESP 13–26; TEMP 36.3–37.6; O2SAT 92–100
--- NOTE | 2024-03-10 01:11 | W.PC.ACHO ---
Registration Status: REG ER Primary Language: Preferred Language: ED Information & Data Chief Complaint GI Bleed 03/09/24 22:46 Triage Note BIBEMS from assisted living 03/09/24 22:12 d/t large amount of bright red blood/ dark melena per rectum and emesis occurring spontaneously Most Recent Vital Signs Temperature 36.6 C 03/10/24 00:32 Temperature Source Temporal Artery Scan 03/09/24 23:21 Pulse 68 03/10/24 00:16 Respiratory Rate 24 03/10/24 00:30 Respiratory Effort Normal, Non-Labored 03/09/24 22:22 Blood Pressure 102/40 L 03/10/24 00:16 Blood Pressure Position Sitting 03/09/24 22:12 Pulse Oximetry 99 03/10/24 00:29 Oxygen Delivery Method Room Air 03/09/24 23:42 Oxygen Flow Rate 0 03/09/24 23:42 Pain Level 6 03/09/24 22:12 Allergies clindamycin Allergy (Unknown, Verified 03/09/24 23:23) Anaphylaxis lincomycin Allergy (Unknown, Verified 03/09/24 23:23) Anaphylaxis Penicillins Allergy (Unknown, Verified 03/09/24 23:23) Anaphylaxis Fish Allergy (Unknown, Uncoded 03/09/24 23:23) Anaphylaxis Zyrtec Allergy (Unknown, Uncoded 03/09/24 23:23) Dizziness/Lighthead Precautions Isolation Standard precaution 03/09/24 22:22 IV IV Catheter Type [Right Saline Lock Antecubital] IV Catheter Type [Left Saline Lock Antecubital] IV Catheter Gauge [Right 18 Antecubital] IV Catheter Gauge [Left 18 Antecubital] Diet Orders Category Date Time Status Nothing Per Oral [DIET] Nutrition 03/10/24 Breakfast Active Diagnostics 03/10/24 03/10/24 03/10/24 Range/Units 22:00 18:00 14:00 WBC Pending Pending Pending (4.4-10.8) 10^3/uL RBC Pending Pending Pending (4.36-5.78) 10^6/uL Hgb Pending Pending Pending (13.5-17.5) g/dL Hct Pending Pending Pending (40.0-50.0) % MCV Pending Pending Pending (80-95) fL MCH Pending Pending Pending (27.0-33.0) pg MCHC Pending Pending Pending (32.0-36.0) % RDW Pending Pending Pending (11.8-14.1) % Plt Count Pending Pending Pending (130-400) 10^3/uL MPV Pending Pending Pending (8.0-11.0) fL Immature Gran % % Neutrophils % % Lymphocytes % % Monocytes % % Eosinophils % % Basophils % % Nucleated RBC % (0.0-0.3) % Absolute Neutrophils (1.2-6.7) 10^3/uL Absolute Lymphocytes (1.2-3.4) 10^3/uL Absolute Monocytes (0.1-0.8) 10^3/uL Absolute Eosinophils (0.0-0.7) 10^3/uL Absolute Basophils (0.0-0.2) 10^3/uL RBC Morphology Hypochromasia PT (9.1-11.1) sec INR (0.9-1.1) APTT (23.6-32.8) sec Sodium (136-145) mmol/L Potassium (3.5-5.1) mmol/L Chloride (98-107) mmol/L Carbon Dioxide (21.0-32.0) mmol/L Anion Gap (3-11) mmol/L BUN (7-18) mg/dL Creatinine (0.70-1.30) mg/dL Est GFR (CKD-EPI 2020) (mL/min/1.73m2) Glucose (74-106) mg/dL Calcium (8.5-10.1) mg/dL Magnesium (1.8-2.4) mg/dL Total Bilirubin (0.2-1.0) mg/dL AST (15-37) U/L ALT (16-63) U/L Alkaline Phosphatase (46-116) U/L Troponin I (< or =60) ng/L Total Protein (6.4-8.2) g/dL Albumin (3.4-5.0) g/dL MRSA (TEM-PCR) ABO/Rh Blood Type Recheck Antibody Screen Crossmatch 03/10/24 03/10/24 03/10/24 Range/Units 10:00 06:00 05:35 WBC Pending Pending (4.4-10.8) 10^3/uL RBC Pending Pending (4.36-5.78) 10^6/uL Hgb Pending Pending (13.5-17.5) g/dL Hct Pending Pending (40.0-50.0) % MCV Pending Pending (80-95) fL MCH Pending Pending (27.0-33.0) pg MCHC Pending Pending (32.0-36.0) % RDW Pending Pending (11.8-14.1) % Plt Count Pending Pending (130-400) 10^3/uL MPV Pending Pending (8.0-11.0) fL Immature Gran % % Neutrophils % % Lymphocytes % % Monocytes % % Eosinophils % % Basophils % % Nucleated RBC % (0.0-0.3) % Absolute Neutrophils (1.2-6.7) 10^3/uL Absolute Lymphocytes (1.2-3.4) 10^3/uL Absolute Monocytes (0.1-0.8) 10^3/uL Absolute Eosinophils (0.0-0.7) 10^3/uL Absolute Basophils (0.0-0.2) 10^3/uL RBC Morphology Hypochromasia PT Pending (9.1-11.1) sec INR Pending (0.9-1.1) APTT (23.6-32.8) sec Sodium Pending (136-145) mmol/L Potassium Pending (3.5-5.1) mmol/L Chloride Pending (98-107) mmol/L Carbon Dioxide Pending (21.0-32.0) mmol/L Anion Gap Pending (3-11) mmol/L BUN Pending (7-18) mg/dL Creatinine Pending (0.70-1.30) mg/dL Est GFR (CKD-EPI 2020) Pending (mL/min/1.73m2) Glucose Pending (74-106) mg/dL Calcium Pending (8.5-10.1) mg/dL Magnesium (1.8-2.4) mg/dL Total Bilirubin Pending (0.2-1.0) mg/dL AST Pending (15-37) U/L ALT Pending (16-63) U/L Alkaline Phosphatase Pending (46-116) U/L Troponin I Pending (< or =60) ng/L Total Protein Pending (6.4-8.2) g/dL Albumin Pending (3.4-5.0) g/dL MRSA (TEM-PCR) ABO/Rh Blood Type Recheck Antibody Screen Crossmatch 03/10/24 03/10/24 03/09/24 Range/Units 02:00 00:35 22:45 WBC Pending (4.4-10.8) 10^3/uL RBC Pending (4.36-5.78) 10^6/uL Hgb Pending (13.5-17.5) g/dL Hct Pending (40.0-50.0) % MCV Pending (80-95) fL MCH Pending (27.0-33.0) pg MCHC Pending (32.0-36.0) % RDW Pending (11.8-14.1) % Plt Count Pending (130-400) 10^3/uL MPV Pending (8.0-11.0) fL Immature Gran % % Neutrophils % % Lymphocytes % % Monocytes % % Eosinophils % % Basophils % % Nucleated RBC % (0.0-0.3) % Absolute Neutrophils (1.2-6.7) 10^3/uL Absolute Lymphocytes (1.2-3.4) 10^3/uL Absolute Monocytes (0.1-0.8) 10^3/uL Absolute Eosinophils (0.0-0.7) 10^3/uL Absolute Basophils (0.0-0.2) 10^3/uL RBC Morphology Hypochromasia PT (9.1-11.1) sec INR (0.9-1.1) APTT (23.6-32.8) sec Sodium (136-145) mmol/L Potassium (3.5-5.1) mmol/L Chloride (98-107) mmol/L Carbon Dioxide (21.0-32.0) mmol/L Anion Gap (3-11) mmol/L BUN (7-18) mg/dL Creatinine (0.70-1.30) mg/dL Est GFR (CKD-EPI 2020) (mL/min/1.73m2) Glucose (74-106) mg/dL Calcium (8.5-10.1) mg/dL Magnesium (1.8-2.4) mg/dL Total Bilirubin (0.2-1.0) mg/dL AST (15-37) U/L ALT (16-63) U/L Alkaline Phosphatase (46-116) U/L Troponin I Pending (< or =60) ng/L Total Protein (6.4-8.2) g/dL Albumin (3.4-5.0) g/dL MRSA (TEM-PCR) Pending ABO/Rh Blood Type Recheck Pending Antibody Screen Crossmatch 03/09/24 Range/Units 22:18 WBC 20.48 H (4.4-10.8) 10^3/uL RBC 2.08 L (4.36-5.78) 10^6/uL Hgb 5.7 L* (13.5-17.5) g/dL Hct 18.2 L* (40.0-50.0) % MCV 88 (80-95) fL MCH 27.4 (27.0-33.0) pg MCHC 31.3 L (32.0-36.0) % RDW 15.3 H (11.8-14.1) % Plt Count 623 H (130-400) 10^3/uL MPV 9.6 (8.0-11.0) fL Immature Gran % 0.0 % Neutrophils % 92.0 % Lymphocytes % 6.0 % Monocytes % 2.0 % Eosinophils % 0.0 % Basophils % 0.0 % Nucleated RBC % 0.0 (0.0-0.3) % Absolute Neutrophils 18.84 H (1.2-6.7) 10^3/uL Absolute Lymphocytes 1.23 (1.2-3.4) 10^3/uL Absolute Monocytes 0.41 (0.1-0.8) 10^3/uL Absolute Eosinophils 0.00 (0.0-0.7) 10^3/uL Absolute Basophils 0.00 (0.0-0.2) 10^3/uL RBC Morphology See Below Hypochromasia 2+ PT 11.7 H (9.1-11.1) sec INR 1.2 H (0.9-1.1) APTT 26.1 (23.6-32.8) sec Sodium 138 (136-145) mmol/L Potassium 4.4 (3.5-5.1) mmol/L Chloride 105 (98-107) mmol/L Carbon Dioxide 16.8 L (21.0-32.0) mmol/L Anion Gap 16.2 H (3-11) mmol/L BUN 94 H* (7-18) mg/dL Creatinine 2.2 H (0.70-1.30) mg/dL Est GFR (CKD-EPI 2020) 29.72 (mL/min/1.73m2) Glucose 188 H (74-106) mg/dL Calcium 7.9 L (8.5-10.1) mg/dL Magnesium 2.6 H (1.8-2.4) mg/dL Total Bilirubin 0.3 (0.2-1.0) mg/dL AST 21 (15-37) U/L ALT 69 H (16-63) U/L Alkaline Phosphatase 139 H (46-116) U/L Troponin I < 50 (< or =60) ng/L Total Protein 5.8 L (6.4-8.2) g/dL Albumin 2.1 L (3.4-5.0) g/dL MRSA (TEM-PCR) ABO/Rh A Negative Blood Type Recheck Cancelled Antibody Screen NEGATIVE Crossmatch See Detail Intake and Output - 24 Hour Total 03/09/24 22:07 thru 03/09/24 23:20 Intake Total 266.667 Balance 266.667 Weight 81.9 kg Intake: IV 266.667 Other: Stool Occult Blood Positive Stool Size Copious Stool Characteristics Soft Brown Black Bloody Emesis Description Bright Red Blood Falls Risk Assessment History of Falls No History 03/09/24 22:22 Contributing Factors No Factors,Impairments, 03/09/24 22:22 Incontinence Ambulatory Aids Independent 03/09/24 22:22 Tubes/Lines None 03/09/24 22:22 Gait Evaluation W/any additional score 03/09/24 22:22 Fall Total Score 26 03/09/24 22:22 Level of Risk Moderate Risk 03/09/24 22:22 Problems (Last Reviewed 03/09/24 @ 23:41 by Kenroy Jordan) BPH (benign prostatic hyperplasia) (Chronic) Hyperlipidemia (Acute) Depression (Chronic) CAD (coronary artery disease), [place] coronary artery (Acute) Acute blood loss anemia (Chronic) Acute upper GI bleed (Acute) Hemorrhagic shock (Acute) GI bleeding (Acute) Notes 03/09/24 23:56 Nursing Notes by Barbie Delgado [id number]: Pt arrived from [facility] and rehab via [facility]. Pt reports nausea/vomiting and diarrhea all day. Staff reported to EMS that he only just started to have bright red bloody emesis and dark red/melena brown diarrhea just prior to EMS being called. Pt c/o severe pain 'in my backside from all the wiping they've been doing. It's killing me.' Repositioned w/ RN Jsoé Luis and Menasha at bedside w/ this RN. Copious amounts of soft, melena colored stool per rectum w/ some red blood. Skin in and around gluteal cleft severely excoriated w/ some noted open wound areas noted. Pt cleaned and repositioned, viscous lidocaine administered to excoriated skin w/ barrier cream to provide some pain relief w/ good results. Initialized on 03/09/24 23:56 - END OF NOTE v v v v v v v v v Sending and/or Receiving Nurses: Please use comment section below to note any information pertinent to the patient hand-off not included above. Information / Comments: Report received from: Josiah Delgado RN 03/10/24 0110
[2024-03-10 01:46] LABS: MRSA PCR Positive (Negative)
[2024-03-10 02:55] LABS: HCT 30.9 % (40.0-50.0); HGB 10.1 g/dL (13.5-17.5); MCHC 32.7 % (32.0-36.0); MCV 86 fL (80-95); MPV 9.7 fL (8.0-11.0); Platelet Count 409 10^3/uL (130-400); RBC 3.61 10^6/uL (4.36-5.78); RDW 16.8 % (11.8-14.1); RDW-SD 52.6 fL
[2024-03-10 03:14] LABS: Troponin I < 50 ng/L (< or =60)
[2024-03-10] MEDS: PANTOPRAZOLE 80 MG in Normal Saline 100 ML 10 MG IV ×3 (04:13→22:11)
[2024-03-10 06:28] LABS: HCT 29.3 % (40.0-50.0); HGB 9.5 g/dL (13.5-17.5); MCHC 32.4 % (32.0-36.0); MCV 86 fL (80-95); MPV 9.6 fL (8.0-11.0); Platelet Count 405 10^3/uL (130-400); RBC 3.39 10^6/uL (4.36-5.78); RDW 17.4 % (11.8-14.1); RDW-SD 55.1 fL; WBC 15.89 10^3/uL (4.4-10.8)
[2024-03-10 06:42] LABS: INR 1.1 (0.9-1.1); Prothrombin Time 10.8 sec (9.1-11.1)
[2024-03-10 06:46] LABS: ALT 61 U/L (16-63); AST 18 U/L (15-37); Albumin 2.2 g/dL (3.4-5.0); Alkaline Phosphatase 131 U/L (46-116); Anion Gap 11.9 mmol/L (3-11); CO2 19.1 mmol/L (21.0-32.0); Calcium 7.9 mg/dL (8.5-10.1); Chloride 109 mmol/L (98-107); Estimated GFR 33.32 (mL/min/1.73m2); Glucose 106 mg/dL (74-106); Potassium 4.2 mmol/L (3.5-5.1); Sodium 140 mmol/L (136-145); Total Protein 5.6 g/dL (6.4-8.2)
[2024-03-10 06:49] LABS: Troponin I < 50 ng/L (< or =60)
[2024-03-10 06:57] LABS: BUN 87 mg/dL (7-18)
[2024-03-10] MEDS: Thiamine 100 MG TAB PO (07:55)
[2024-03-10] MEDS: Venlafaxine 37.5 MG CAPCR 75 MG PO (07:55)
[2024-03-10] MEDS: Tamsulosin 0.4 MG CAPCR PO (07:55)
[2024-03-10] MEDS: Finasteride 5 MG TAB PO (07:56)
[2024-03-10] MEDS: Empaglifozin 10 MG TAB PO (07:56)
[2024-03-10] MEDS: Rosuvastatin 20 MG TAB PO (07:56)
[2024-03-10] MEDS: Carvedilol 6.25 MG TAB 3.125 MG PO ×2 (07:56→20:13)
[2024-03-10] MEDS: Normal Saline Flush 10 ML SYR IVP ×2 (07:57→20:15)
--- NOTE | 2024-03-10 08:30 | W.PM.PROGNOT ---
Date of Service Date of service: 03/10/24 Time of Service: 11:30 Assessment and Plan Assessment and plan (1) Acute upper GI bleed: Status: Acute Assessment and plan: 78-year-old man who had acute GI bleeding, most likely from an upper source, in the setting of a history of having prior GI bleeds. This in the setting of dual antiplatelet therapy currently. It is my understanding he recently had a heart stent placed. He does not need emergency endoscopy at this time. It would probably be worthwhile to do an endoscopy in a couple of days just to document what the cause of bleeding is/was and the location of it. It will need to be discussed with his cardiology team. Will probably need to maintain him on at least a baby aspirin is my guess. He certainly cannot afford to have his stent occlude. The antiplatelet effect will continue to exist for a number of days and so there is time to have this discussion. We need to try to get outside records of his previous endoscopy and colonoscopy notes. If he has had a recent colonoscopy, he probably does not need to have another one just because of this episode of bleeding. He remains quite dehydrated(for obvious reasons) and I expect his hemoglobin will drift down as he becomes less hemoconcentrated. Rehydration should be done slowly and judiciously to avoid any heart failure. It is okay for him to have clear liquids and hydrate himself orally at this point. He is completely hemodynamically stable with a normal blood pressure and a normal heart rate. I think it is okay to give him VERY GENTLE rate IV fluids. I think his hemoglobin can be checked every 6-8 hours at this point given his hemodynamic stability and his response to transfusion. Probably should stay in the ICU until tomorrow morning and make sure hemoglobin remained stable and there are no more bleeding episodes. Surgery will continue to follow along and probably set him up for an upper endoscopy in the next few days after we get previous notes and get cardiology input. Again, we may need to tolerate at least a baby aspirin, but I defer to cardiology to weigh in on that. Subjective Subjective Interval history since last seen: Patient has no complaints at the bedside. Well, he says he is very thirsty. He has been voiding. He denies any abdominal pain. He has not had any more vomiting. He had 1 bowel movement this morning that was liquid but the nursing staff reports there was not very much blood, if any, in it. He received 3 units of blood in the ER yesterday and has not required any transfusions since. Exam Narrative Exam Narrative: General: Frail, elderly, weak and somewhat malnourished Neuro: Alert and oriented x 3 Psych: Reasonable mood and affect, good insight and understanding Abdomen: Soft, nondistended and nontender Objective Last Vital Signs Temp 99.0 F 03/10/24 08:10 Pulse 71 03/10/24 08:04 Resp 15 03/10/24 08:10 BP 109/62 03/10/24 08:10 Pulse Ox 92 03/10/24 08:10 Laboratory Results - last 24 hr 03/09/24 03/09/24 03/10/24 22:18 22:45 00:35 WBC 20.48 H RBC 2.08 L Hgb 5.7 L* Hct 18.2 L* MCV 88 MCH 27.4 MCHC 31.3 L RDW 15.3 H Plt Count 623 H MPV 9.6 Immature Gran % 0.0 Neutrophils % 92.0 Lymphocytes % 6.0 Monocytes % 2.0 Eosinophils % 0.0 Basophils % 0.0 Nucleated RBC % 0.0 Absolute Neutrophils 18.84 H Absolute Lymphocytes 1.23 Absolute Monocytes 0.41 Absolute Eosinophils 0.00 Absolute Basophils 0.00 RBC Morphology See Below Hypochromasia 2+ PT 11.7 H INR 1.2 H APTT 26.1 Sodium 138 Potassium 4.4 Chloride 105 Carbon Dioxide 16.8 L Anion Gap 16.2 H BUN 94 H* Creatinine 2.2 H Est GFR (CKD-EPI 2020) 29.72 Glucose 188 H Calcium 7.9 L Magnesium 2.6 H Total Bilirubin 0.3 AST 21 ALT 69 H Alkaline Phosphatase 139 H Troponin I < 50 Total Protein 5.8 L Albumin 2.1 L MRSA (TEM-PCR) Positive A ABO/Rh A Negative Blood Type Recheck Cancelled A Negative Antibody Screen NEGATIVE Crossmatch See Detail 03/10/24 03/10/24 02:50 06:18 WBC 18.60 H 15.89 H RBC 3.61 L 3.39 L Hgb 10.1 L D 9.5 L Hct 30.9 L 29.3 L MCV 86 86 MCH 28.0 28.0 MCHC 32.7 32.4 RDW 16.8 H 17.4 H Plt Count 409 H 405 H MPV 9.7 9.6 Immature Gran % Neutrophils % Lymphocytes % Monocytes % Eosinophils % Basophils % Nucleated RBC % Absolute Neutrophils Absolute Lymphocytes Absolute Monocytes Absolute Eosinophils Absolute Basophils RBC Morphology Hypochromasia PT 10.8 INR 1.1 APTT Sodium 140 Potassium 4.2 Chloride 109 H Carbon Dioxide 19.1 L Anion Gap 11.9 H BUN 87 H* Creatinine 2.0 H Est GFR (CKD-EPI 2020) 33.32 Glucose 106 Calcium 7.9 L Magnesium Total Bilirubin 1.0 AST 18 ALT 61 Alkaline Phosphatase 131 H Troponin I < 50 < 50 Total Protein 5.6 L Albumin 2.2 L MRSA (TEM-PCR) ABO/Rh Blood Type Recheck Antibody Screen Crossmatch Time Spent with Patient Time Spent with Patient: 35-49 minutes Time was spent: preparing to see the patient(eg.review tests), obtaining and/or reviewing separately otained hiistory, indepentently interpreting results, counseling the patient and care coordination
[2024-03-10] MEDS: Venlafaxine 150 MG CAPCR PO (08:33)
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
--- NOTE | 2024-03-10 10:13 | PGE_ITS ---
Date of Service Date of service: 03/10/24 Time of Service: 10:13 Assessment and Plan Assessment and plan (1) Acute upper GI bleed: Start date: 03/09/24 Status: Acute Assessment and plan: -presents with acute upper GI bleed appearing to be from the stomach with gross hematemesis, azotemia and significant drop in his hemoglobin from his baseline around 9 g/dL. -s/p 3 units of packed red blood cells, Hb improved this am to low 8's -continue to hold plavix and ASA -continue to monitor Hb levels and signs for ongoing bleeding (2) Hemorrhagic shock: Start date: 03/09/24 Status: Acute Assessment and plan: -Patient did have hypotension with his acute anemia and blood loss which has responded to blood transfusion. -Continue to monitor with low-dose of Coreg if patient tolerates because of recent cardiac events and CHF. (3) Acute blood loss anemia: Start date: 03/09/24 Status: Chronic Assessment and plan: -as noted above (4) CAD (coronary artery disease), [place] coronary artery: Status: Chronic Assessment and plan: -Hold Plavix and aspirin as noted above Qualifiers: [place] vs. transplanted heart: [place] heart Associated angina: without angina Qualified Code(s): I25.10 - Atherosclerotic heart disease of [place] coronary artery without angina pectoris (5) Depression: Status: Chronic Assessment and plan: Continue antidepressants. Qualifiers: Depression Type: other depression Qualified Code(s): F32.89 - Other specified depressive episodes (6) Hyperlipidemia: Status: Chronic Assessment and plan: Continue statin therapy. Qualifiers: Hyperlipidemia type: mixed hyperlipidemia Qualified Code(s): E78.2 - Mixed hyperlipidemia (7) BPH (benign prostatic hyperplasia): Status: Chronic Assessment and plan: Continue Flomax and Proscar. Qualifiers: Lower urinary tract symptom presence: unspecified whether lower urinary tract symptoms present Qualified Code(s): N40.0 - Benign prostatic hyperplasia without lower urinary tract symptoms Subjective Subjective Interval history since last seen: Patient states that he is feeling better today. He understands the plan to monitor his Hb levels and assess for further blood loss. Exam Narrative Exam Narrative: Chronically ill-appearing gentleman laying in bed in no acute distress, ANO x 4, heart regular rhythm, lungs clear to auscultation bilaterally, abdomen soft, non-tender, non-distended Objective Last Vital Signs Temp 99.0 F 03/10/24 08:10 Pulse 71 03/10/24 08:04 Resp 15 03/10/24 08:10 BP 109/62 03/10/24 08:10 Pulse Ox 92 03/10/24 08:10 Laboratory Results - last 24 hr 03/09/24 03/09/24 03/10/24 22:18 22:45 00:35 WBC 20.48 H RBC 2.08 L Hgb 5.7 L* Hct 18.2 L* MCV 88 MCH 27.4 MCHC 31.3 L RDW 15.3 H Plt Count 623 H MPV 9.6 Immature Gran % 0.0 Neutrophils % 92.0 Lymphocytes % 6.0 Monocytes % 2.0 Eosinophils % 0.0 Basophils % 0.0 Nucleated RBC % 0.0 Absolute Neutrophils 18.84 H Absolute Lymphocytes 1.23 Absolute Monocytes 0.41 Absolute Eosinophils 0.00 Absolute Basophils 0.00 RBC Morphology See Below Hypochromasia 2+ PT 11.7 H INR 1.2 H APTT 26.1 Sodium 138 Potassium 4.4 Chloride 105 Carbon Dioxide 16.8 L Anion Gap 16.2 H BUN 94 H* Creatinine 2.2 H Est GFR (CKD-EPI 2020) 29.72 Glucose 188 H Calcium 7.9 L Magnesium 2.6 H Total Bilirubin 0.3 AST 21 ALT 69 H Alkaline Phosphatase 139 H Troponin I < 50 Total Protein 5.8 L Albumin 2.1 L MRSA (TEM-PCR) Positive A ABO/Rh A Negative Blood Type Recheck Cancelled A Negative Antibody Screen NEGATIVE Crossmatch See Detail 03/10/24 03/10/24 02:50 06:18 WBC 18.60 H 15.89 H RBC 3.61 L 3.39 L Hgb 10.1 L D 9.5 L Hct 30.9 L 29.3 L MCV 86 86 MCH 28.0 28.0 MCHC 32.7 32.4 RDW 16.8 H 17.4 H Plt Count 409 H 405 H MPV 9.7 9.6 Immature Gran % Neutrophils % Lymphocytes % Monocytes % Eosinophils % Basophils % Nucleated RBC % Absolute Neutrophils Absolute Lymphocytes Absolute Monocytes Absolute Eosinophils Absolute Basophils RBC Morphology Hypochromasia PT 10.8 INR 1.1 APTT Sodium 140 Potassium 4.2 Chloride 109 H Carbon Dioxide 19.1 L Anion Gap 11.9 H BUN 87 H* Creatinine 2.0 H Est GFR (CKD-EPI 2020) 33.32 Glucose 106 Calcium 7.9 L Magnesium Total Bilirubin 1.0 AST 18 ALT 61 Alkaline Phosphatase 131 H Troponin I < 50 < 50 Total Protein 5.6 L Albumin 2.2 L MRSA (TEM-PCR) ABO/Rh Blood Type Recheck Antibody Screen Crossmatch Time Spent with Patient Time Spent with Patient: >50 minutes Time was spent: preparing to see the patient(eg.review tests), obtaining and/or reviewing separately otained hiistory, ordering medications,tests, procedures, referring, communicating with other health healthcare liaison, indepentently interpreting results, counseling the patient and care coordination
[2024-03-10 10:17] LABS: HCT 27.7 % (40.0-50.0); HGB 8.8 g/dL (13.5-17.5); MCH 27.2 pg (27.0-33.0); MCHC 31.8 % (32.0-36.0); MCV 86 fL (80-95); MPV 9.5 fL (8.0-11.0); Platelet Count 394 10^3/uL (130-400); RBC 3.23 10^6/uL (4.36-5.78); RDW-SD 56.2 fL; WBC 14.39 10^3/uL (4.4-10.8)
[2024-03-10 14:21] LABS: HCT 28.2 % (40.0-50.0); HGB 9.1 g/dL (13.5-17.5); MCH 27.8 pg (27.0-33.0); MCHC 32.3 % (32.0-36.0); MCV 86 fL (80-95); MPV 9.5 fL (8.0-11.0); Platelet Count 384 10^3/uL (130-400); RBC 3.27 10^6/uL (4.36-5.78); RDW 18.3 % (11.8-14.1); RDW-SD 57.3 fL; WBC 14.08 10^3/uL (4.4-10.8)
[2024-03-10 18:45] LABS: HCT 29.3 % (40.0-50.0); HGB 9.3 g/dL (13.5-17.5); MCH 27.5 pg (27.0-33.0); MCHC 31.7 % (32.0-36.0); MCV 87 fL (80-95); MPV 9.5 fL (8.0-11.0); Platelet Count 386 10^3/uL (130-400); RBC 3.38 10^6/uL (4.36-5.78); RDW 18.2 % (11.8-14.1); RDW-SD 57.7 fL; WBC 14.33 10^3/uL (4.4-10.8)
[2024-03-10] MEDS: Mirtazapine 15 MG TAB 30 MG PO (20:14)
[2024-03-10 22:28] LABS: HCT 25.7 % (40.0-50.0); MCH 27.4 pg (27.0-33.0); MCHC 31.9 % (32.0-36.0); MCV 86 fL (80-95); MPV 9.6 fL (8.0-11.0); Platelet Count 391 10^3/uL (130-400); RBC 2.99 10^6/uL (4.36-5.78); RDW 17.9 % (11.8-14.1); RDW-SD 55.4 fL; WBC 14.11 10^3/uL (4.4-10.8)
[2024-03-10 22:34] LABS: HGB 8.2 g/dL (13.5-17.5)
[2024-03-11] VITALS (15 sets, daily range): BP systolic 105–135; BP diastolic 52–64; PULSE 60–79; RESP 14–23; TEMP 36.6–37.6; O2SAT 90–99
[2024-03-11 06:29] LABS: HCT 25.8 % (40.0-50.0); HGB 8.4 g/dL (13.5-17.5); MCH 27.8 pg (27.0-33.0); MCHC 32.6 % (32.0-36.0); MCV 85 fL (80-95); MPV 9.9 fL (8.0-11.0); Platelet Count 374 10^3/uL (130-400); RBC 3.02 10^6/uL (4.36-5.78); RDW 18.2 % (11.8-14.1); RDW-SD 56.5 fL; WBC 12.26 10^3/uL (4.4-10.8)
[2024-03-11 06:37] LABS: Anion Gap 12.9 mmol/L (3-11); BUN 65 mg/dL (7-18); CO2 18.1 mmol/L (21.0-32.0); CREATININE 1.9 mg/dL (0.70-1.30); Calcium 8.1 mg/dL (8.5-10.1); Chloride 110 mmol/L (98-107); Estimated GFR 35.44 (mL/min/1.73m2); Glucose 83 mg/dL (74-106); Potassium 3.9 mmol/L (3.5-5.1); Sodium 141 mmol/L (136-145)
[2024-03-11] MEDS: Empaglifozin 10 MG TAB PO (08:47)
[2024-03-11] MEDS: Thiamine 100 MG TAB PO (08:47)
[2024-03-11] MEDS: Rosuvastatin 20 MG TAB PO (08:47)
[2024-03-11] MEDS: Tamsulosin 0.4 MG CAPCR PO (08:47)
[2024-03-11] MEDS: Carvedilol 6.25 MG TAB 3.125 MG PO (08:47)
[2024-03-11] MEDS: Venlafaxine 37.5 MG CAPCR 75 MG PO (08:47)
[2024-03-11] MEDS: Venlafaxine 150 MG CAPCR PO (08:47)
[2024-03-11] MEDS: Finasteride 5 MG TAB PO (08:47)
[2024-03-11] MEDS: Normal Saline Flush 10 ML SYR IVP ×2 (08:49→19:31)
[2024-03-11] MEDS: PANTOPRAZOLE 80 MG in Normal Saline 100 ML 10 MG IV (09:01)
--- NOTE | 2024-03-11 09:05 | PDOC.CMPRO ---
Date of service: 03/11/24 Time of Service: 09:05 Care Management Progress Note Progress Note Text Progress Note Text: S/O: A: P: SDOH(Care Management) Screening Will the Patient Participate in the Screening?: Yes Do you worry about having a steady place to live?: no In the past 12 months, have you had to go without electric, gas, oil or water in your home?: no Have you or anyone in your house had to go without enough food to eat?: no Has lack of transportation kept you from medical appointments or from doing things needed for daily living?: no Has anyone in your support network made you feel unsafe for any reason?: no
--- NOTE | 2024-03-11 09:10 | PDOC.CMDIS ---
Date of service: 03/11/24 Time of Service: 09:10 LACE Index Scoring Tool Questions: Length of Stay (in days): 2 Was the patient admitted via the E.D.?: Yes E.D. Visits: 2 Answers: Total Score: 7 Risk of Readmission: Low Risk Care Management Discharge Plan Reason for Hospitalization: upper GI bleed Discharge Plan: Humble will discharge back to [facility] for STR. He will follow up with facility/community providers and his discharge plan of care as instructed. He will transport via facility w/c van. Patient/Family Education Needs: Review discharge instructions, limitations, medications and plan to follow up with community providers. Discuss ask me three. Services Needed at Discharge: Group Home Facility ([facility]) SDOH Health Related Social Needs: No Data to Display
--- NOTE | 2024-03-11 10:04 | W.PM.PROGNOT ---
Date of Service Date of service: 03/11/24 Time of Service: 10:04 Assessment and Plan Assessment and plan (1) Acute upper GI bleed: Status: Acute Assessment and plan: 78-year-old man with acute on chronic GI bleeding in the setting of dual antiplatelet therapy. He is hemodynamically stable and the bleeding has stopped clinically and lab work shows stability in the hemoglobin levels. I talked with the nursing staff today about getting his outside records. If he has had a recent colonoscopy and endoscopy, which he endorses having had, then I do not think there is a lot of sense in repeating these just because he had another episode of bleeding. My overall sense is that these records will give us information we need about what is bleeding and where it is bleeding from and then the bigger decisions are medical management strategies going forward. The hospitalist team, the outpatient care team and his customer relations assistant will need to decide what kind of risk tolerance they have for maintaining antiplatelet therapy. At this point surgery is going to sign off. Please call us back if you need our input at any point or if it is felt that he needs to have repeated endoscopy and colonoscopy. It would be nice to have his outpatient endoscopy and colonoscopy notes on record so if he has a bleeding issue again we at least know the location. He is not a great candidate for exploratory/emergency surgery or such to become necessary and that should be discussed with goals of care with his PCP in an outpatient, stable setting. Subjective Subjective Interval history since last seen: No more bleeding. Patient is on a regular diet at this point. Has not been transfused anymore. Hemoglobin has stayed stable. He is now floor care. He says he had an upper endoscopy and a colonoscopy done within the last year at an outside hospital. This was done for the same reason -GI bleeding. He has been hemodynamically stable and is urinating adequately. Exam Narrative Exam Narrative: General: Better color and more interactive Neuro: Alert and oriented x 3 Psych: Good mood and affect Abdomen: Soft, nondistended and nontender Objective Last Vital Signs Temp 98.6 F 03/11/24 09:38 Pulse 68 03/11/24 08:31 Resp 17 03/11/24 08:31 BP 121/58 L 03/11/24 08:31 Pulse Ox 97 03/11/24 05:51 Laboratory Results - last 24 hr 03/10/24 03/10/24 03/10/24 10:10 14:10 18:30 WBC 14.39 H 14.08 H 14.33 H RBC 3.23 L 3.27 L 3.38 L Hgb 8.8 L 9.1 L 9.3 L Hct 27.7 L 28.2 L 29.3 L MCV 86 86 87 MCH 27.2 27.8 27.5 MCHC 31.8 L 32.3 31.7 L RDW 18.0 H 18.3 H 18.2 H Plt Count 394 384 386 MPV 9.5 9.5 9.5 Sodium Potassium Chloride Carbon Dioxide Anion Gap BUN Creatinine Est GFR (CKD-EPI 2020) Glucose Calcium 03/10/24 03/11/24 22:20 05:50 WBC 14.11 H 12.26 H RBC 2.99 L 3.02 L Hgb 8.2 L 8.4 L Hct 25.7 L 25.8 L MCV 86 85 MCH 27.4 27.8 MCHC 31.9 L 32.6 RDW 17.9 H 18.2 H Plt Count 391 374 MPV 9.6 9.9 Sodium 141 Potassium 3.9 Chloride 110 H Carbon Dioxide 18.1 L Anion Gap 12.9 H BUN 65 H Creatinine 1.9 H Est GFR (CKD-EPI 2020) 35.44 Glucose 83 Calcium 8.1 L Time Spent with Patient Time Spent with Patient: 25-34 minutes Time was spent: preparing to see the patient(eg.review tests), obtaining and/or reviewing separately otained hiistory, ordering medications,tests, procedures, referring, communicating with other health child care coordinator, indepentently interpreting results, counseling the patient and care coordination
--- NOTE | 2024-03-11 12:32 | W.PM.PROGNOT ---
Date of Service Date of service: 03/11/24 Time of Service: 12:32 Assessment and Plan Assessment and plan (1) Acute upper GI bleed: Status: Acute Assessment and plan: -presents with acute upper GI bleed appearing to be from the stomach with gross hematemesis, azotemia and significant drop in his hemoglobin from his baseline around 9 g/dL. -s/p 3 units of packed red blood cells, Hb improved this am to low 8's -continue to hold plavix and ASA -continue to monitor Hb levels and signs for ongoing bleeding (2) Hemorrhagic shock: Status: Acute Assessment and plan: -Patient did have hypotension with his acute anemia and blood loss which has responded to blood transfusion. -Continue to monitor with low-dose of Coreg if patient tolerates because of recent cardiac events and CHF. (3) Acute blood loss anemia: Status: Chronic Assessment and plan: -as noted above (4) CAD (coronary artery disease), [place] coronary artery: Status: Chronic Assessment and plan: -Hold Plavix and aspirin as noted above Qualifiers: [place] vs. transplanted heart: [place] heart Associated angina: without angina Qualified Code(s): I25.10 - Atherosclerotic heart disease of [place] coronary artery without angina pectoris (5) Depression: Status: Chronic Assessment and plan: Continue antidepressants. Qualifiers: Depression Type: other depression Qualified Code(s): F32.89 - Other specified depressive episodes (6) Hyperlipidemia: Status: Chronic Assessment and plan: Continue statin therapy. Qualifiers: Hyperlipidemia type: mixed hyperlipidemia Qualified Code(s): E78.2 - Mixed hyperlipidemia (7) BPH (benign prostatic hyperplasia): Status: Chronic Assessment and plan: Continue Flomax and Proscar. Qualifiers: Lower urinary tract symptom presence: unspecified whether lower urinary tract symptoms present Qualified Code(s): N40.0 - Benign prostatic hyperplasia without lower urinary tract symptoms Subjective Subjective Interval history since last seen: Patient states that he is feeling better today. He [facility] his prior [facility] is approved. Exam Narrative Exam Narrative: Chronically ill-appearing gentleman laying in bed in no acute distress, ANO x 4, heart regular rhythm, lungs clear to auscultation bilaterally, abdomen soft, non-tender, non-distended Objective Last Vital Signs Temp 98.6 F 03/11/24 09:38 Pulse 74 03/11/24 09:51 Resp 18 03/11/24 09:48 BP 105/54 L 03/11/24 09:51 Pulse Ox 97 03/11/24 05:51 Laboratory Results - last 24 hr 03/10/24 03/10/24 03/10/24 14:10 18:30 22:20 WBC 14.08 H 14.33 H 14.11 H RBC 3.27 L 3.38 L 2.99 L Hgb 9.1 L 9.3 L 8.2 L Hct 28.2 L 29.3 L 25.7 L MCV 86 87 86 MCH 27.8 27.5 27.4 MCHC 32.3 31.7 L 31.9 L RDW 18.3 H 18.2 H 17.9 H Plt Count 384 386 391 MPV 9.5 9.5 9.6 Sodium Potassium Chloride Carbon Dioxide Anion Gap BUN Creatinine Est GFR (CKD-EPI 2020) Glucose Calcium 03/11/24 05:50 WBC 12.26 H RBC 3.02 L Hgb 8.4 L Hct 25.8 L MCV 85 MCH 27.8 MCHC 32.6 RDW 18.2 H Plt Count 374 MPV 9.9 Sodium 141 Potassium 3.9 Chloride 110 H Carbon Dioxide 18.1 L Anion Gap 12.9 H BUN 65 H Creatinine 1.9 H Est GFR (CKD-EPI 2020) 35.44 Glucose 83 Calcium 8.1 L Time Spent with Patient Time Spent with Patient: >50 minutes Time was spent: preparing to see the patient(eg.review tests), obtaining and/or reviewing separately otained hiistory, ordering medications,tests, procedures, referring, communicating with other health managed care liaison, indepentently interpreting results, counseling the patient and care coordination
--- NOTE | 2024-03-11 13:10 | PDOC.CMPRO ---
Date of service: 03/11/24 Time of Service: 13:10 Care Management Progress Note Progress Note Text Progress Note Text: S/O: Humble is medically ready for discharge back to [facility], his prior auth is pending and is delaying discharge. He is pleasant in interaction, his diet has been advanced and he was able to walk in the [place] with assistance today. CM is following. A: 78 year old male admitted to [facility] on 03/09/24 for Acute blood loss anemia P: Anticipate, Humble will return to [facility] [place] is pending 03/11/24. He will follow up with facility providers and plan of care and transport via w/c van. CM will follow and continue to assess for discharge needs. SDOH(Care Management) Screening Will the Patient Participate in the Screening?: Yes Do you worry about having a steady place to live?: no In the past 12 months, have you had to go without electric, gas, oil or water in your home?: no Have you or anyone in your house had to go without enough food to eat?: no Has lack of transportation kept you from medical appointments or from doing things needed for daily living?: no Has anyone in your support network made you feel unsafe for any reason?: no
--- NOTE | 2024-03-11 14:21 | PT.INIE ---
PT Notes Visit Reasons: Upper GI bleed, Acute blood loss anemia, CAD Physical Therapy Inpatient Initial Evaluation Date: Referring Doctor: Tima Vital MD PT Orders: PT CONSULT: Eval/Treat Precautions: Fall. Contact Precautions in place. Activity as tolerated. Patient Profile/Admitting Diagnosis: Humble is a 78-year-old male who presented to the ED with chief complaints red-stained stool. He is admitted for management of acute upper GI bleed, hemorrhagic shock, acute blood loss anemia, CAD, depression, hyperlipidemia, and BPH. He recently also sustained a left humeral fracture and is status post fixation of right femoral neck fracture on February 20, 2024. PMHX: All Active Problems (Updated 03/10/24 @ 06:43 by Kenroy Jordan) BPH (benign prostatic hyperplasia) (Chronic) Hyperlipidemia (Chronic) Depression (Chronic) CAD (coronary artery disease), [place] coronary artery (Chronic) Acute blood loss anemia (Chronic) Acute upper GI bleed (Acute) Hemorrhagic shock (Acute) GI bleeding (Acute) Closed hip fracture (Acute) Social History/Home Situation: Lives in a motel in [place]. Modified independent with use of 4 wheeled walker prior to admission. Was sent from short-term SNF to this hospital. Equipment Owned/DME: 4[employer] Subjective: Hungry. Per TIP LENGTH CHECKER Jaleesa patient did not want lunch when it was offered to him. Nurse Kelsy re-ordering lunch so it will be ready for patient. Still feels weak. Does not want to go back to SNF, hopes to go home. Objective: General Observation: Resting in bed. Telemetry monitoring in place. ORIF incision flat and well-healed. Mental Status: Alert and oriented as to person, place, time, and purpose. Able to pay attention, focus, and respond appropriately. Pain: None reported Vital Signs: Oxygen saturation at 100% after walking about 100 feet using front wheel walker; HR 75 bpm ROM: Right Upper Extremity: Shoulder Flexion WFL. Shoulder abduction WFL. Elbow flexion WFL. Wrist flexion WFL. Functional opening and closing of hand WFL. Left Upper Extremity: Shoulder Flexion only allows about 50% of AROM due to recent humeral fracture. Shoulder abduction only allows about 50% of AROM due to recent humeral fracture. Elbow flexion WFL. Wrist flexion WFL. Functional opening and closing of hand WFL. Right Lower Extremity: Hip flexion allows about 100 degrees. Hip abduction WFL. Knee flexion 30 degrees to 90 degress. Knee extension -30 degrees Ankle dorsiflexion to neutral only L. Ankle plantarflexion WFL. Left Lower Extremity: Hip flexion WFL. Hip abduction WFL. Knee flexion 10 degrees to 90 degress. Knee extension -10 degrees Ankle dorsiflexion to neutral only L. Ankle plantarflexion WFL. Strength: Right Upper Extremity: Shoulder flexors 4-/5. Shoulder abductors 4-/5. Elbow flexors 4-/5. Elbow extensors 40/5. Cryptologic Supervisor strong. Left Upper Extremity: Shoulder flexors 3-/5. Shoulder abductors 3-/5. Elbow flexors 4-/5. Elbow extensors 4-/5. Cryptologic Supervisor strong. Right Lower Extremity: Hip flexors 3-/5. Hip abductors 4-/5. Knee flexors 3-/5. Knee extensors 3-/5. Ankle dorsiflexors 3-/5. Ankle plantarflexors 4-/5. Left Lower Extremity: Hip flexors 4-/5. Hip abductors 4-/5. Knee flexors 3-/5. Knee extensors 3-/5. Ankle dorsiflexors 3-/5. Ankle plantarflexors 4-/5. Bed Mobility/Transfers: Minimal cueing provided for use of B hands as needed for support, movement sequence, AD management, and posture to reduce fall risk and minimize pain report Rolling supervision Supine to sit stand by assist Sit to stand minimal assist using FWW Stand to sit minimal assist using FWW Bed to reclining chair minimal assist using FWW Gait: Facilitated safe and correct performance of level surface ambulation covering a distance of 150 feet + 75 feet using FWW with wheelchair follow by JOSEPH Lazcano and IV pole management of PT. Step-to gait pattern with asymmetric step height and length. Minimal verbal cueing needed for AD management, posture, directional changes, and movement sequence to reduce fall risk. Needed seated rest after the first walk due to SOB and fatigue. Balance: Static Sitting: Normal Dynamic Sitting: Normal Static Standing: Fair Dynamic Standing: Fair Special Tests: Mobility Limitations Standardized Measure [facility] AM-PAC 6 clicks Basic Mobility Inpatient Short Form: Raw Score: 18 CMS Score: 47% deficit Informed Consent/Education: Patient was instructed in purpose of PT consult and plan of care. Agreeable to proceed with established PT POC to achieve personal goals. THERA EX: Seated marches x 10 LAQs x 10 Ankle DF/PF x 10 Assessment: Patient requires assistance of 1 person for mobility ADL performance to maximize independence and reduce fall risk. He will benefit from the use of front wheeled walker at this time as the 4 wheeled walker may be a challenge to control and can increase fall risk. Limited movement in L UE and R LE due to most recent fracture and surgery. Patient presents with clinical signs and symptoms consistent with current/admitting diagnoses that have resulted to mobility limitations, gait instability, generalized weakness, and overall ADL decline as demonstrated by the following impairment level findings: 1. Decreased strength to L shoudler and B LE major muscle groups 2. Impaired standing balance 3. Impaired activity tolerance 4. Limitation of joint range of motion in L shoulder and R hip 5. Shortness of breath Impairments are contributing to the following functional limitations: 1. Decline in bed mobility skills 2. Decline in transfer skills 3. Difficulty with ambulation without assistive device and physical assistance 4. Increased completion time for mobility ADL performance 5. Increased risk for falls 6. Difficulty with managing steps alone safely Patient is assessed as a 62402 moderate complexity based on the following: History: 78-year-old male with past medical history as indicated above Examination: Demonstrable impairment in strength, balance, and mobility level with underlying impairments and functional limitations as exhibited above as well as deficit score of 47% utilizing the [facility] Mobility Inpatient Short Form Presentation: Evolving Decision Makin moderate complexity Goals: Goals X1 week 1. Supine-Sit independent 2. Sit-Supine independent 3. Sit-Stand independent 4. Stand-Sit independent with FWW 5. Bed-Chair independent with FWW 6. Chair-Bed independent with FWW 7. Independent gait on level surface with use of FWW for at least 300 feet without report of pain nor dyspnea 8. Independent with home exercise program 9. Good static and dynamic standing balance/tolerance Plan of Care/Treatment Plan: 1-2x/day, 7 days/week x 1 week. Plan of care has been reviewed with the UNIT ASSEMBLER providing the service under Physical Therapy direction. Initiate Physical Therapy intervention for pain management as needed, strengthening, bed mobility, transfers, gait, stairs, balance training, and use of assistive device. DISCHARGE RECOMMENDATIONS: [] Home with no services [] [] Home with services [specify] [] Home with outpatient PT [] [] SNF for continued rehabilitation [] [] [facility] [] [] SNF versus LTC based on ability to participate and progress [] [X] Short-term SNF vs PT based on progress towards goals. TREATMENT CODE/TIME: 33722 x 20 minutes for 1 unit, 03524 x 14 minutes for 1 unit (13:45-14:19). Thank you for the opportunity to participate in the care of this patient. Kelle Carter PT, DPT, CLT [facility] [place], [place]
[2024-03-11] MEDS: Carvedilol 3.125 MG TAB PO (19:28)
[2024-03-11] MEDS: Mirtazapine 15 MG TAB 30 MG PO (19:29)
[2024-03-12 03:06] VITALS: BP 121/56; PULSE 73; RESP 18; TEMP 36.4; O2SAT 97
[2024-03-12 07:54] VITALS: BP 106/60; PULSE 100; RESP 17; TEMP 36.6; O2SAT 95
[2024-03-12] MEDS: Empaglifozin 10 MG TAB PO (08:42)
[2024-03-12] MEDS: Venlafaxine 150 MG CAPCR PO (08:42)
[2024-03-12] MEDS: Venlafaxine 37.5 MG CAPCR 75 MG PO (08:42)
[2024-03-12] MEDS: Carvedilol 3.125 MG TAB PO ×2 (08:42→20:06)
[2024-03-12] MEDS: Rosuvastatin 20 MG TAB PO (08:42)
[2024-03-12] MEDS: Tamsulosin 0.4 MG CAPCR PO (08:42)
[2024-03-12] MEDS: Finasteride 5 MG TAB PO (08:42)
[2024-03-12] MEDS: Thiamine 100 MG TAB PO (08:42)
[2024-03-12] MEDS: Pantoprazole 40 MG TABCR PO (08:42)
[2024-03-12] MEDS: Normal Saline Flush 10 ML SYR IVP ×2 (08:44→20:07)
--- NOTE | 2024-03-12 10:39 | PT.INTREAT ---
PT Notes Visit Reasons: Upper GI bleed, Acute blood loss anemia, CAD Physical Therapy Inpatient Treatment Note Date: 03/12/2024 Precautions: Fall. Contact precautions in place. Activity as tolerated. Subjective: Does not feel at baseline mobility yet. States he lives in a motel in [place]. Denied headache, chest pain and lightheadedness throughout session. Objective: General Observation: Resting in bed. Telemetry monitoring in place. ORIF on R hip incision flat and well-healed. Mental Status: Alert and oriented as to person, place, time, and purpose. Able to pay attention, focus, and respond appropriately. Pain: None reported Vital Signs: Closeley monitored by nursing staff Bed Mobility/Transfers: Minimal cueing provided for use of B hands as needed for support, movement sequence, AD management, and posture to reduce fall risk and minimize pain report Supine to sit minimal assist with HOB at 30 degrees Sit to stand minimal assist using FWW Stand to sit contact guard assist using FWW Bed to reclining chair minimal assist using FWW Gait: Facilitated safe and correct performance of level surface ambulation covering a distance of 250 feet using FWW with wheelchair follow and minimal assist of PT. Step-to gait pattern with asymmetric step height and length. Had near loss of balance while making a right turn requiring minimal assist of PT for recovery. Minimal verbal cueing needed for AD management, posture, directional changes, and movement sequence to reduce fall risk. Needed seated rest after the first walk due to SOB and fatigue. THERA EX: Instruction given for safe and correct performance of exercises below. Seated marches x 10 LAQs x 10 Ankle DF/PF x 10 Assessment: Patient requiring minimal assist for all mobility ADL performance using FWW. He will benefit from short-term rehab placement in order to regain prior level of function and/or optimize mobility performance to reduce fall risk and prevent re-hospitalization. Balance compromise during directional changes, requires more training with functional mobility tasks. Plan of Care/Treatment Plan: 1-2x/day, 7 days/week x 1 week. Plan of care has been reviewed with the ELECTRICAL WORKER providing the service under Physical Therapy direction. Initiate Physical Therapy intervention for pain management as needed, strengthening, bed mobility, transfers, gait, stairs, balance training, and use of assistive device. DISCHARGE RECOMMENDATIONS: [] Home with no services [] [] Home with services [specify] [] Home with outpatient PT [] [X] SNF for continued rehabilitation. Patient will benefit [facility] for continued skilled physical therapy services in order to progress mobility level, strength, and balance in preparation for a safe discharge to home. [] [facility] [] [] SNF versus LTC based on ability to participate and progress [] TREATMENT CODE/TIME: 81041 x 20 minutes for 1 unit, 49165 x 14 minutes for 1 unit (10:39-11:13).
[2024-03-12 11:16] VITALS: BP 128/62; PULSE 71; RESP 17; TEMP 36.3; O2SAT 95
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
[2024-03-12 15:25] VITALS: BP 122/69; PULSE 76; RESP 18; TEMP 36.9; O2SAT 98
--- NOTE | 2024-03-12 15:41 | PT.INTREAT ---
Date of service: 03/12/24 Time of Service: 14:55 PT Notes Visit Reasons: Upper GI bleed, Acute blood loss anemia, CAD Inpatient Physical Therapy Treatment Note [facility] Date: 03/12/2024 PRECAUTIONS: Fall. Contact precautions in place. Activity as tolerated. SUBJECTIVE: Indicated he was willing to sit up on edge of bed and do his exercises, but adamantly refused ambulation with myself and with nurse Naida. Complained of vision being blurring this afternoon and being tired. Concerned that his center of gravity is so off lately. OBJECTIVE: ? PAIN: Stated when he turns while walking it is painful in the right hip area ? BED MOBILITY/TRANSFERS? Rolling L/R: SBG with rolling to the left to sit up. Supine-sit: Min assist with pulling upper body upright. ? Sit-supine: SBG? Sit-stand: Refused? Stand-sit: Refused ? Provided skilled cues and instruction on performance and technique throughout. GAIT: Ambulation refused despite numerous request.? Therapeutic Exercises ([id number] - 15 minutes): Direct one-on-one instruction in therapeutic exercises to develop strength, endurance, range of motion and flexibility. ? Exercises ? Agreed to sit up on edge of bed to perform LAQs, seated march, seated hip abd/add and heel raises / toe raises for 2 sets of 10 reps each. Provided skilled instruction in proper exercise performance Provided skilled manual cues to facilitate proper muscle recruitment and/or form ASSESSMENT:? Tolerated exercises fair, but not willing to get up out of bed to walk this afternoon. PLAN: Continue to work on supine to sit transfers, ambulation with walker and global strengthening for improved ADL skills. TREATMENT CODE/TIME: [id number], 3:15 to 3:30 (15 minutes)
[2024-03-12 19:53] VITALS: BP 105/53; PULSE 78; RESP 19; TEMP 36.6; O2SAT 98
[2024-03-12] MEDS: Mirtazapine 15 MG TAB 30 MG PO (20:06)
[2024-03-13] MEDS: oxyCODONE 10 MG TAB PO (00:54)
[2024-03-13 00:56] VITALS: BP 120/60; PULSE 73; RESP 15; TEMP 36.9; O2SAT 97
--- NOTE | 2024-03-13 06:37 | PGE_ITS ---
Date of Service Date of service: 03/12/24 Time of Service: 14:21 Assessment and Plan Assessment and plan (1) Acute upper GI bleed: Status: Acute Assessment and plan: -presents with acute upper GI bleed appearing to be from the stomach with gross hematemesis, azotemia and significant drop in his hemoglobin from his baseline around 9 g/dL. -s/p 3 units of packed red blood cells, Hb improved this am to low 8's -continue to hold plavix and ASA -continue to monitor Hb levels and signs for ongoing bleeding (2) Hemorrhagic shock: Status: Acute Assessment and plan: -Patient did have hypotension with his acute anemia and blood loss which has responded to blood transfusion. -Continue to monitor with low-dose of Coreg if patient tolerates because of recent cardiac events and CHF. (3) Acute blood loss anemia: Status: Chronic Assessment and plan: -as noted above (4) CAD (coronary artery disease), [place] coronary artery: Status: Chronic Assessment and plan: -Hold Plavix and aspirin as noted above Qualifiers: [place] vs. transplanted heart: [place] heart Associated angina: without angina Qualified Code(s): I25.10 - Atherosclerotic heart disease of [place] coronary artery without angina pectoris (5) Depression: Status: Chronic Assessment and plan: Continue antidepressants. Qualifiers: Depression Type: other depression Qualified Code(s): F32.89 - Other specified depressive episodes (6) Hyperlipidemia: Status: Chronic Assessment and plan: Continue statin therapy. Qualifiers: Hyperlipidemia type: mixed hyperlipidemia Qualified Code(s): E78.2 - Mixed hyperlipidemia (7) BPH (benign prostatic hyperplasia): Status: Chronic Assessment and plan: Continue Flomax and Proscar. Qualifiers: Lower urinary tract symptom presence: unspecified whether lower urinary tract symptoms present Qualified Code(s): N40.0 - Benign prostatic hyperplasia without lower urinary tract symptoms Subjective Subjective Interval history since last seen: Patient states that he is feeling better today. He understands [facility] his prior [facility] is approved. Exam Narrative Exam Narrative: Chronically ill-appearing gentleman laying in bed in no acute distress, ANO x 4, heart regular rhythm, lungs clear to auscultation bilaterally, abdomen soft, non-tender, non-distended Objective Last Vital Signs Temp 98.4 F 03/13/24 00:56 Pulse 73 03/13/24 00:56 Resp 15 03/13/24 00:56 BP 120/60 03/13/24 00:56 Pulse Ox 97 03/13/24 00:56 Time Spent with Patient Time Spent with Patient: >50 minutes Time was spent: preparing to see the patient(eg.review tests), obtaining and/or reviewing separately otained hiistory, ordering medications,tests, procedures, referring, communicating with other health home care chaplain, indepentently interpreting results, counseling the patient and care coordination
[2024-03-13] MEDS: Venlafaxine 37.5 MG CAPCR 75 MG PO (07:50)
[2024-03-13] MEDS: Tamsulosin 0.4 MG CAPCR PO (07:51)
[2024-03-13] MEDS: Pantoprazole 40 MG TABCR PO (07:51)
[2024-03-13] MEDS: Empaglifozin 10 MG TAB PO (07:51)
[2024-03-13] MEDS: Carvedilol 3.125 MG TAB PO ×2 (07:51→19:56)
[2024-03-13] MEDS: Finasteride 5 MG TAB PO (07:51)
[2024-03-13] MEDS: Thiamine 100 MG TAB PO (07:52)
[2024-03-13] MEDS: Venlafaxine 150 MG CAPCR PO (07:52)
[2024-03-13] MEDS: Rosuvastatin 20 MG TAB PO (07:52)
[2024-03-13 07:56] VITALS: BP 126/78; PULSE 73; RESP 16; TEMP 36.5; O2SAT 97
[2024-03-13] MEDS: Normal Saline Flush 10 ML SYR IVP (07:58)
--- NOTE | 2024-03-13 09:28 | PDOC.CMDIS ---
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 Visits: 2 Answers: Total Score: 14 Risk of Readmission: High Risk Care Management Discharge Plan Reason for Hospitalization: upper GI bleed Discharge Plan: Humble will be transferred back to [facility] prior to returning to the [facility] from which he [facility]. He will follow up with facility providers and plan of care and transport via facility van. Patient/Family Education Needs: review of discharge instructions, activity, limitations, follow up plan, discuss Ask Me Three Services Needed at Discharge: Care Home Facility SDOH Health Related Social Needs: No Data to Display
[2024-03-13 11:41] VITALS: BP 114/70; PULSE 80; RESP 18; TEMP 36.7; O2SAT 98
[2024-03-13 11:54] LABS: HCT 26.8 % (40.0-50.0); HGB 8.8 g/dL (13.5-17.5)
--- NOTE | 2024-03-13 12:02 | PT.INTREAT ---
PT Notes Visit Reasons: Upper GI bleed, Acute blood loss anemia, CAD Date: 03/13/24 PRECAUTIONS: Fall. Contact precautions in place. Activity as tolerated. SUBJECTIVE: pt in bed when approached for therapy this morning, pt reports he is waitng to get DC'd to SNF but is ok to walk inside his room to go to the recliner for lunch. OBJECTIVE: ? PAIN: none reported VITALS: monitored by nursing Therapeutic Activities 28452: Direct one-on-one instruction in dynamic activities to improve functional performance. ?? BED MOBILITY/TRANSFERS? Rolling L/R: min A Supine-sit: ?SBA ? Sit-supine: ?SBA ? Sit-stand: ?CGA ? Stand-sit: ??CGA ? Bed-Chair:? ?CGA ? Chair-bed: CGA Provided skilled cues and instruction on performance and technique throughout. Gait Training 78493: Direct one-on-one instruction and skilled instruction in: Employing an assistive device Modified weight-bearing status Movement sequencing Turning and movement with proper form Provided verbal cues for equipment management and technique Provided instruction in gait pattern Patient education regarding pacing and breathing techniques to maximize activity tolerance? GAIT? Assistive Device: ??FWW? Weight bearing: WBAT Assist: ? CGA? Distance:?? ?10'x2 ? Deviation: ?Step-to gait pattern with asymmetric step height and length. slow amos speed stoop forward posture ? ASSESSMENT:?pt stayed in recliner after session, refused further engagement after morning session, DC in the afternoon to SNF PLAN: Continue with balance training, global strengthening and general conditioning for improved safety, mobility and activity tolerance until pt is ready for DC. TREATMENT CODE/TIME: 73780y4 15mins (11:15-11:30am)
--- NOTE | 2024-03-13 14:48 | PDOC.CMPRO ---
Date of service: 03/13/24 Time of Service: 14:48 Care Management Progress Note Progress Note Text Progress Note Text: S/O:Humble was sitting up in a chair, fully dressed, when CM met with him. He was polite and stated that he has been told he may be discharged back to [facility] today. The provider had reached out to GI at [facility] to discuss his case however and the recommendation was made to do an EGD and colonoscopy prior to discharge. There is also a question about restarting Humble's Plavix and ASA which has been referred to Cardiology at [facility]. The decision was made to cancel Humble's discharge for today. CM informed him of the change and he was accepting of the situation. , A: Humble is a 78 year old man admitted on 03/09/24 with a GI Bleed Discharge Potential Discharge Needs: Other (return to [facility]) Anticipated Barriers to Discharge: None Identified and Medical Status (supposed to be discharged today but decision made to do EGD and colonoscopy prior to discharge) Patient/Family Education Needs: Review discharge instructions, discuss Ask Me Three Transportation: Facility Transport Plan: Humble will return to [facility] to continue his rehabilitation before returning to the [facility] where he is from. He will follow up with facility providers and plan of care and transport via facility van. CM will follow and continue to assess for discharge needs. SDOH(Care Management) Screening Will the Patient Participate in the Screening?: Yes Do you worry about having a steady place to live?: no In the past 12 months, have you had to go without electric, gas, oil or water in your home?: no Have you or anyone in your house had to go without enough food to eat?: no Has lack of transportation kept you from medical appointments or from doing things needed for daily living?: no Has anyone in your support network made you feel unsafe for any reason?: no
--- NOTE | 2024-03-13 15:19 | PHA.REVIEW2 ---
Pharmacy Admission Review Admission Clinical Review Admission Pharmacy Review: Acute upper GI bleed (Acute) Hemorrhagic shock (Acute) GI bleeding (Acute) clindamycin Allergy (Unknown, Verified 03/09/24 23:23) Anaphylaxis lincomycin Allergy (Unknown, Verified 03/09/24 23:23) Anaphylaxis Penicillins Allergy (Unknown, Verified 03/09/24 23:23) Anaphylaxis Fish Allergy (Unknown, Uncoded 03/09/24 23:23) Anaphylaxis Zyrtec Allergy (Unknown, Uncoded 03/09/24 23:23) Dizziness/Lighthead Resuscitation Status Full Code Height 6 ft 1 in Weight 80.739 kg Pharmacy Admission Review Renal Dosing Renal Dosing: BUN 65 mg/dL (7-18) H 03/11/24 05:50 Creatinine 1.9 mg/dL (0.70-1.30) H 03/11/24 05:50 Medications needing adjustments: Reviewed (CrCl 36 mL/min) List of meds needing interventions: Current medications are okay Anticoagulation Anticoagulation: Hgb 8.8 g/dL (13.5-17.5) L 03/13/24 11:00 Hct 26.8 % (40.0-50.0) L 03/13/24 11:00 Plt Count 374 10^3/uL (130-400) 03/11/24 05:50 INR 1.1 (0.9-1.1) 03/10/24 06:18 Creatinine 1.9 mg/dL (0.70-1.30) H 03/11/24 05:50 DVT Prophylaxis: Reviewed (TEDs - GI bleed) Relevant Labs Relevant Labs: Sodium 141 mmol/L (136-145) 03/11/24 05:50 Potassium 3.9 mmol/L (3.5-5.1) 03/11/24 05:50 Chloride 110 mmol/L (98-107) H 03/11/24 05:50 Magnesium 2.6 mg/dL (1.8-2.4) H 03/09/24 22:18 Electrolytes, C-Reactive P, ESR: Reviewed (Hgb 8.8 and HCT 26.8) Cardiac Review Cardiac Review: Troponin I < 50 ng/L (< or =60) 03/10/24 06:18 BP, HR, EF%: Reviewed (BP/HR WNL) QTc Review QTc: Reviewed (466 from 03/09) IV to PO Switch IV Medications: Reviewed (Ondansetron) Home Meds Home Med List reviewed: Reviewed Relevent Home Meds Not ordered & why?: Acetaminophen (PRN), bisacodyl (PRN) and fleet enema (PRN) Current Meds Current Medication Order Review: Reviewed
[2024-03-13 15:34] VITALS: BP 121/69; PULSE 79; RESP 18; TEMP 36.6; O2SAT 99
--- NOTE | 2024-03-13 15:45 | PT.INTREAT ---
PT Notes Visit Reasons: Upper GI bleed, Acute blood loss anemia, CAD Date: 03/13/24 PRECAUTIONS: Fall. Contact precautions in place. Activity as tolerated. SUBJECTIVE: pt in recliner when approached for therapy this afternoon, pt reports he would not like to participate with gait training but requested to transfer from recliner to bed to rest for the afternoon. OBJECTIVE: ? PAIN: none reported VITALS: monitored by nursing Therapeutic Activities 28423: Direct one-on-one instruction in dynamic activities to improve functional performance. ?? BED MOBILITY/TRANSFERS? Rolling L/R: cga Supine-sit: ?SBA ? Sit-supine: ?SBA ? Sit-stand: ?cga ? Stand-sit: ??cga ? Bed-Chair:? ?cga? Chair-bed: CGA Provided skilled cues and instruction on performance and technique throughout. Gait Training 28958: Direct one-on-one instruction and skilled instruction in: Employing an assistive device Modified weight-bearing status Movement sequencing Turning and movement with proper form Provided verbal cues for equipment management and technique Provided instruction in gait pattern Patient education regarding pacing and breathing techniques to maximize activity tolerance? GAIT? Assistive Device: ??FWW? Weight bearing: WBAT Assist: ? CGA? Distance:?? ?10' ? Deviation: ?Step-to gait pattern with asymmetric step height and length. slow amos speed stoop forward posture ? ASSESSMENT:?pt refused further engagement after getting situated in bed. PLAN: Continue with balance training, global strengthening and general conditioning for improved safety, mobility and activity tolerance until pt is ready for DC. TREATMENT CODE/TIME: [id number] 10mins (3:30-3:40pm)
--- NOTE | 2024-03-13 16:31 | W.PM.PROGNOT ---
Date of Service Date of service: 03/13/24 Time of Service: 16:31 Assessment and Plan Assessment and plan (1) Acute upper GI bleed: Status: Acute Assessment and plan: -presents with acute upper GI bleed appearing to be from the stomach with gross hematemesis, azotemia and significant drop in his hemoglobin from his baseline around 9 g/dL. -s/p 3 units of packed red blood cells, Hgb has been stable in mid 8's -I talked to [facility] cardiology and gastroenterology covering clinicians. Per cardiology, he should resume ASA and clopidogrel. Per GI, he should have EGD and colonoscopy before he goes home given high risk for recurrent bleed resuming the antiplatelet medications. 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 - I reconsulted Dr. Hubbard, he states the patient is higher risk for complications, but he is willing to do the endoscopies given the [facility] recommendations. Okay to resume antiplatelet agents now. Clear diet, prep tomorrow, plan procedures on Monday. -continue to monitor Hb levels and signs for ongoing bleeding (2) Hemorrhagic shock: Status: Acute Assessment and plan: -Patient did have hypotension with his acute anemia and blood loss which has responded to blood transfusion, hemodynamically stable since then. (3) Acute blood loss anemia: Status: Chronic Assessment and plan: -as noted above (4) CAD (coronary artery disease), [place] coronary artery: Status: Chronic Assessment and plan: -Plavix and aspirin held as above on admission, troponins negative on admission, no chest pain since. See discussion with [facility] Cardiology, resuming DAPT. Qualifiers: [place] vs. transplanted heart: [place] heart Associated angina: without angina Qualified Code(s): I25.10 - Atherosclerotic heart disease of [place] coronary artery without angina pectoris (5) Depression: Status: Chronic Assessment and plan: Continue antidepressants. Qualifiers: Depression Type: other depression Qualified Code(s): F32.89 - Other specified depressive episodes (6) Hyperlipidemia: Status: Chronic Assessment and plan: Continue statin therapy. Qualifiers: Hyperlipidemia type: mixed hyperlipidemia Qualified Code(s): E78.2 - Mixed hyperlipidemia (7) BPH (benign prostatic hyperplasia): Status: Chronic Assessment and plan: Continue Flomax and Proscar. Qualifiers: Lower urinary tract symptom presence: unspecified whether lower urinary tract symptoms present Qualified Code(s): N40.0 - Benign prostatic hyperplasia without lower urinary tract symptoms Subjective Subjective Patient reports: tolerating a regular diet; denies diarrhea, nausea, vomiting or fever Interval history since last seen: No further blood in stool or melena or other bleeding. Not feeling SOB, chest pain Exam Narrative Exam Narrative: Chronically ill-appearing gentleman laying in bed, up to chair, in no acute distress, ANO x 4, heart regular rhythm, lungs clear to auscultation bilaterally, abdomen soft, non-tender, non-distended. Ext not tender, no edema. Objective Last Vital Signs Temp 36.6 C 03/13/24 15:34 Pulse 79 03/13/24 15:34 Resp 18 03/13/24 15:34 BP 121/69 03/13/24 15:34 Pulse Ox 99 03/13/24 15:34 Laboratory Results - last 24 hr 03/13/24 11:00 Hgb 8.8 L Hct 26.8 L Time Spent with Patient Time Spent with Patient: >50 minutes Time was spent: preparing to see the patient(eg.review tests), obtaining and/or reviewing separately otained hiistory, ordering medications,tests, procedures, referring, communicating with other health skin care therapist, indepentently interpreting results, counseling the patient and care coordination
[2024-03-13 19:40] VITALS: BP 133/72; PULSE 73; RESP 18; TEMP 37.6; O2SAT 94
[2024-03-13] MEDS: Mirtazapine 15 MG TAB 30 MG PO (19:56)
[2024-03-13 20:10] VITALS: BP 131/67; PULSE 82; RESP 16; TEMP 36.9; O2SAT 97
[2024-03-13] MEDS: ACETAMINOPHEN 1,000 MG/100 ML BTL 400 MG IVPB (21:55)
--- NOTE | 2024-03-14 07:39 | W.PM.PROGNOT ---
Date of Service Date of service: 03/14/24 Time of Service: 08:24 Assessment and Plan Assessment and plan (1) Acute blood loss anemia: Status: Chronic Assessment and plan: 78-year-old man with GI bleeding of an unknown etiology or location. Seemingly forgot because of having bloody vomiting however EGD within the last 12 months failed to find a foregut source and reportedly he was presumed to have diverticular bleeding. In any event he is back on dual antiplatelet therapy but has had no further bleeding at this point. Per medical team request and GI/cardiology recommendations we will go ahead with EGD and colonoscopy again. Plan for today: Only clear liquids. Prep this afternoon. EGD and colonoscopy tomorrow Subjective Subjective Interval history since last seen: Asked by hospitalist service to consult again on this patient. [facility] GI and cardiology recommend that he have repeat colonoscopy and EGD performed despite having both of these done within the last 12 months for GI bleeding. Cardiology reportedly wants patient to continue on both aspirin and Plavix and hospitalist team planning to restart these. Patient has not had any further bleeding or transfusions since the emergency department visit (3 units last weekend) Exam Narrative Exam Narrative: No clinical changes Objective Last Vital Signs Temp 98.4 F 03/13/24 20:10 Pulse 82 03/13/24 20:10 Resp 16 03/13/24 20:10 BP 131/67 03/13/24 20:10 Pulse Ox 97 03/13/24 20:10 Laboratory Results - last 24 hr 03/13/24 11:00 Hgb 8.8 L Hct 26.8 L Time Spent with Patient Time Spent with Patient: <25 minutes Time was spent: obtaining and/or reviewing separately otained hiistory, referring, communicating with other health health and social care teacher and care coordination
[2024-03-14 08:06] VITALS: BP 132/65; PULSE 76; RESP 15; TEMP 36.5; O2SAT 97
[2024-03-14] MEDS: Normal Saline Flush 10 ML SYR IVP ×2 (09:53→21:16)
[2024-03-14] MEDS: Venlafaxine 37.5 MG CAPCR 75 MG PO (09:54)
[2024-03-14] MEDS: Carvedilol 3.125 MG TAB PO ×2 (09:54→21:16)
[2024-03-14] MEDS: Rosuvastatin 20 MG TAB PO (09:54)
[2024-03-14] MEDS: Clopidogrel 75 MG TAB PO (09:55)
[2024-03-14] MEDS: Tamsulosin 0.4 MG CAPCR PO (09:55)
[2024-03-14] MEDS: Aspirin 81 MG CHEW PO (09:55)
[2024-03-14] MEDS: Pantoprazole 40 MG TABCR PO (09:55)
[2024-03-14] MEDS: Finasteride 5 MG TAB PO (09:56)
[2024-03-14] MEDS: Thiamine 100 MG TAB PO (09:56)
[2024-03-14] MEDS: Venlafaxine 150 MG CAPCR PO (09:56)
[2024-03-14] MEDS: Empaglifozin 10 MG TAB PO (09:57)
[2024-03-14 11:31] VITALS: BP 116/71; PULSE 70; RESP 16; TEMP 36.6; O2SAT 96
--- NOTE | 2024-03-14 11:33 | PDOC.CMPRO ---
Date of service: 03/14/24 Time of Service: 11:33 Care Management Progress Note Progress Note Text Progress Note Text: S/O: Humble was lying in bed watching TV when CM met with him. He was polite and easily engages in conversation. He shares that he enjoys reading mystery novels in his spare time, and is board. CM brought him a mystery novel, which he expressed excitement to read. CM is trying to find him stronger reading glasses, since his personal glasses are not quite strong enough. Discharge back to [facility] will be dependent on the results of his EGD and colonoscopy which is planned for tomorrow. CM notified Faviola at [facility] and Humble is in completed support of this plan. He is eager to have surgical intervention if needed. There is also a question about restarting Humble's Plavix and ASA which has been referred to Cardiology at [facility]. A: Humble is a 78 year old man admitted on 03/09/24 with a GI Bleed Discharge Patient/Family Education Needs: Review discharge instructions, discuss [facility] [employer] Transportation: Facility Transport Plan: EGD and Colonoscopy are planned for 03/15/24. Discharge back to [facility] for STR when medically ready. Follow up with community providers and his discharge plan of care as instructed. Transport via facility w/c van. CM is following. SDOH(Care Management) Screening Will the Patient Participate in the Screening?: Yes Do you worry about having a steady place to live?: no In the past 12 months, have you had to go without electric, gas, oil or water in your home?: no Have you or anyone in your house had to go without enough food to eat?: no Has lack of transportation kept you from medical appointments or from doing things needed for daily living?: no Has anyone in your support network made you feel unsafe for any reason?: no
--- NOTE | 2024-03-14 11:43 | PT.INNT ---
PT Notes Visit Reasons: Upper GI bleed, Acute blood loss anemia, CAD Patient was approacheded twice this morning and verbalized that he could not find the motivation to work with PT. Agreeable though for provider to check in on him later today. Also refused sitting up at edge of bed and transferring to chair that PT set up for him. Has an EGD testing happening today or tomorrow per patient. CM approached about patient's sad disposition and unwillingness to do anything. Will approach patient again this afternoon for a PT session.
--- NOTE | 2024-03-14 12:21 | PGE_ITS ---
Date of Service Date of service: 03/14/24 Time of Service: 12:21 Assessment and Plan Assessment and plan (1) Acute upper GI bleed: Status: Acute Assessment and plan: -presented with apparent upper GI bleed with gross hematemesis, azotemia, black stools, and significant drop in his hemoglobin from his baseline around 9 g/dL. -s/p 3 units of packed red blood cells, Hgb has been stable in mid -Talked to [facility] cardiology and gastroenterology covering clinicians 03/13. Per cardiology, he should resume ASA and clopidogrel. Per GI, he should have EGD and colonoscopy before he goes home given high risk for recurrent bleed resuming the antiplatelet medications. - [place] [facility] showed Barretts but not bleeding source, presumption was diverticular bleed. - I reconsulted Dr. Hubbard, he states the patient is higher risk for complications, but he is willing to do the endoscopies given the [facility] recommendations. - DAPT resumed 03/14 - Clear diet, prep today per Dr. Hubbard, plan EGD/colo on Monday. -continue to monitor Hb levels and signs for ongoing bleeding (2) Hemorrhagic shock: Status: Acute Assessment and plan: -Resolved -Patient did have hypotension with his acute anemia and blood loss which has responded to blood transfusion, hemodynamically stable since then. (3) Acute blood loss anemia: Status: Chronic Assessment and plan: -as noted above (4) CAD (coronary artery disease), [place] coronary artery: Status: Chronic Assessment and plan: -Plavix and aspirin held as above on admission, troponins negative on admission, no chest pain since. See discussion with [facility] Cardiology, resuming DAPT, still no chest pain. Qualifiers: [place] vs. transplanted heart: [place] heart Associated angina: without angina Qualified Code(s): I25.10 - Atherosclerotic heart disease of [place] coronary artery without angina pectoris Subjective Subjective Patient reports: no new complaints and voiding w/o difficulty; denies diarrhea, nausea, vomiting, shortness of breath or fever Interval history since last seen: He feels okay. He had a BM yesterday and did not note blood or melena (last stool in flowsheet listed 03/12 as soft/black). He is eating clear diet. No chest pain. Exam Narrative Exam Narrative: Chronically ill-appearing gentleman laying in bed, up to chair, in no acute distress, ANO x 4, heart regular rhythm, lungs clear to auscultation bilaterally, abdomen soft, non-tender, non-distended. Ext not tender, no edema. Objective Last Vital Signs Temp 36.6 C 03/14/24 11:31 Pulse 70 03/14/24 11:31 Resp 16 03/14/24 11:31 BP 116/71 03/14/24 11:31 Pulse Ox 96 03/14/24 11:31 Time Spent with Patient Time Spent with Patient: 35-49 minutes Time was spent: preparing to see the patient(eg.review tests), obtaining and/or reviewing separately otained hiistory, ordering medications,tests, procedures, referring, communicating with other health care support representative, indepentently interpreting results and counseling the patient
[2024-03-14] MEDS: Bisacodyl 5 MG TABEC 20 MG PO (13:25)
--- NOTE | 2024-03-14 16:48 | PT.INNT ---
PT Notes Visit Reasons: Upper GI bleed, Acute blood loss anemia, CAD Patient remains unmotivated to do anything with PT this afternoon, rationalizing that it is okay for him to do so and knowing that it is his right to rest and take it easy. Expresses unbelief in him having to undergo all these medical issues when he has lived an active lifestyle. Verbalized that if it were up to him, he would prefer to go home to his place in [place] and forego short-term rehab placement. Patient's sentiments and refusal were relayed to AYSE Freire and Nurse Miguel. Will try review patient's goals and coordinate with AYSE Freire to determine if patient is still willing to work on his functional mobility goals . Will discharge as appropriate.
[2024-03-14] MEDS: Docusate Sodium 100 MG CAP PO (21:16)
[2024-03-14] MEDS: Polyethylene Glycol 3350 17 GM PACKET PO (21:16)
[2024-03-14] MEDS: Mirtazapine 15 MG TAB 30 MG PO (21:16)
[2024-03-14] MEDS: Polyethylene Glycol 3350 238 GM BTL PO (21:17)
--- NOTE | 2024-03-14 21:21 | W.PM.ENDDOP ---
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 Under the direct vision of the scope, I advanced down the esophagus towards the stomach.? The Z-line was encountered all the way up at 22 cm from the incisors. Beyond this, there appeared to be replacement of normal squamous esophageal mucosa with Villegas's esophagus. There is an area of what appears to be older ulceration, around 32 cm from the incisors. There is no evidence of any active bleeding here. There is no stricture or any other pathology in this area. I can navigate across it without any difficulty. The GE junction measures approximately 35 cm from the incisors, but the measurement is a little difficult because of the presence of a grade 4 hiatal hernia. I am able to traverse the GE junction down into the stomach without any difficulty. I performed retroflexion confirming the presence of hiatal hernia. Stomach proper all appears normal to me. I do not see any evidence of gastritis or ulceration. I can navigate down around the incisura angularis and across the pylorus without any difficulty. There is no evidence of any bleeding in the duodenum. Next, I brought the camera back up into the stomach. Again, great care was taken to ensure that the stomach was completely insufflated and the rugae were obliterated. As mentioned above, there is no evidence of any active gastritis. That point, I brought the camera back up to the GE junction. There is a few small foci of erythema with no visible vessels here. This is just above the GE junction. I then brought the camera back into the esophagus and up through the segment of Villegas's. Again, it seems to measure about 12 cm in length. Although I do think multiple biopsies are warranted here, and the presence of acute blood loss anemia, I did think it was the safest thing to do. Furthermore, it would be very useful to see the report from his previous endoscopy to compare this. At this point, without any specific target for intervention, I decided to terminate the procedure. The camera was brought back down into the stomach and it was emptied. It was then carefully brought out along the length the esophagus taking 1 last examination. The esophagus was suctioned clear as the camera was withdrawn, the patient was transferred to the recovery unit.
[2024-03-14 23:11] VITALS: BP 144/83; PULSE 75; RESP 16; TEMP 36.5; O2SAT 94
--- NOTE | 2024-03-14 23:24 | NUR.NOTE ---
Nursing Note: Pt has completed approx 1/2 of miralax bowel prep with ~30 0z remaining. Pt states I'm not drinking that. I can't hold anymore right now. Educated on completing prep and requirement to have clean bowel to have colonoscopy procedure in AM. Pt has not yet passed stool. Pt states maybe later, but I am not drinking anymore right now. Left cup of prep for pt to sip on at bedside.
--- NOTE | 2024-03-15 06:47 | NUR.NOTE ---
Nursing Note: Pt had copious large incontinent liquid brown stool in bed at approx 6am. This was first BM since beginning of bowel prep. EP SPECIALIST Assisted pt to bathroom to clean up. Pt had another liquid brown BM on toilet. Cleansed pt and changed into clean gown. Assisted into recliner. Pt self-removed PIV. Refusing for this RN to replace IV. Educated pt that he would have to have an IV for his procedure scheduled today. Allowed Ambika Yap RN to attempt, but he was unsuccessful. Notified oncoming RN of need for new IV placement.
[2024-03-15 07:35] VITALS: BP 130/71; PULSE 81; RESP 16; TEMP 36.1; O2SAT 97
--- NOTE | 2024-03-15 09:30 | PT.INNT ---
PT Notes Visit Reasons: Upper GI bleed, Acute blood loss anemia, CAD Pt expressed he would like to be taken out of PT services for the time being, Nurse Jessica informed of pt request, Supervising PT also aware of pt request.
[2024-03-15] MEDS: Venlafaxine 150 MG CAPCR PO (09:31)
[2024-03-15] MEDS: Carvedilol 3.125 MG TAB PO (09:31)
[2024-03-15] MEDS: Tamsulosin 0.4 MG CAPCR PO (09:32)
[2024-03-15] MEDS: Empaglifozin 10 MG TAB PO (09:32)
[2024-03-15] MEDS: Pantoprazole 40 MG TABCR PO (09:32)
[2024-03-15] MEDS: Rosuvastatin 20 MG TAB PO (09:32)
[2024-03-15] MEDS: Venlafaxine 37.5 MG CAPCR 75 MG PO (09:32)
[2024-03-15] MEDS: Aspirin 81 MG CHEW PO (09:32)
[2024-03-15] MEDS: Thiamine 100 MG TAB PO (09:33)
[2024-03-15] MEDS: Clopidogrel 75 MG TAB PO (09:33)
[2024-03-15] MEDS: Finasteride 5 MG TAB PO (09:33)
--- NOTE | 2024-03-15 11:35 | NUR.NOTE ---
Nursing Note: Patient remains NPO except for water for meds this morning. Per night RN, patient finished approx. half of the prep solution, and refused the rest, producing only 1 BM. Discussed this with the patient who was adamant he did not want to prep, then stated he did not want the colonoscopy at all. Patient did agree to upper endoscopy alone. Dr. Dubois and Dr. Lee are aware.
--- NOTE | 2024-03-15 13:56 | ANES.PREOP_ITS ---
General Info Date of Service Date Performed: 03/15/24 Height: 6 ft 1 in Weight: 80 kg Body Mass Index (BMI): 23.2 Surgical Procedure: Operation Date: 03/15/24 13:35 Proposed Procedure Side Surgeon p Gastroscopy Zoltan Dubois MD Actual Procedure Side Surgeon p Gastroscopy Zoltan Dubois MD Pre-Op Diagnosis Post-Op Diagnosis Acute Upper GI bleed + Acute Blood Loss Anemia Meds Allergies and Home Medications Allergies Allergy/AdvReac Type Severity Reaction Status Date / Time clindamycin Allergy Unknown Anaphylaxis Verified 03/09/24 23:23 lincomycin Allergy Unknown Anaphylaxis Verified 03/09/24 23:23 Penicillins Allergy Unknown Anaphylaxis Verified 03/09/24 23:23 Fish Allergy Unknown Anaphylaxis Uncoded 03/09/24 23:23 Zyrtec Allergy Unknown Dizziness/L Uncoded 03/09/24 23:23 ighthead Home Medication Medication Instructions Recorded acetaminophen 325 mg capsule 650 mg PO Q6H PRN 02/19/24 aspirin 81 mg chewable tablet 81 mg PO DAILY 02/19/24 bisacodyl 10 mg rectal suppository 10 mg MD DAILY PRN 02/19/24 (Dulcolax (bisacodyl)) brinzolamide 1 % eye 1 drp ophthalmic (eye) TID 02/19/24 drops,suspension carvedilol 6.25 mg tablet 6.25 mg PO BID 02/19/24 clopidogrel 75 mg tablet 75 mg PO DAILY 02/19/24 empagliflozin 10 mg tablet 10 mg PO DAILY 02/19/24 finasteride 5 mg tablet 5 mg PO DAILY 02/19/24 magnesium hydroxide 400 mg/5 mL 30 ml PO DAILY PRN 02/19/24 oral suspension (Milk of Magnesia) mirtazapine 30 mg tablet 30 mg PO QHS 02/19/24 oxycodone 5 mg tablet 5 mg PO Q6H 02/19/24 polyethylene glycol 3350 17 17 g PO DAILY 02/19/24 gram/dose oral powder prednisolone acetate 1 % eye 1 drp ophthalmic (eye) DAILY 02/19/24 drops,suspension rosuvastatin 20 mg tablet 20 mg PO DAILY 02/19/24 sodium phosphates 19 gram-7 118 ml MD DAILY PRN 02/19/24 gram/118 mL enema (Fleet Enema) tamsulosin 0.4 mg capsule 0.4 mg PO DAILY 02/19/24 thiamine HCl (vitamin B1) 100 mg 100 mg PO DAILY 02/19/24 tablet venlafaxine 150 mg 150 mg PO DAILY 02/19/24 capsule,extended release 24 hr venlafaxine 75 mg tablet 75 mg PO DAILY 02/19/24 Current Visit Medications: Current Medications Generic Name Dose Route Start Last Admin Trade Name Freq PRN Reason Stop Dose Admin Acetaminophen 1,000 mg 03/13/24 20:47 Acetaminophen 500 Mg Tab PO Q6H PRN PRN Al Hydrox/Mg Hydrox/Simethicone 15 ml 03/09/24 23:47 Mylanta Double Strength Suspension 30 Ml Cup PO Q2H PRN PRN Aspirin 81 mg 03/14/24 08:30 03/15/24 09:32 Aspirin 81 Mg Chew PO 81 mg DAILY NANCY Administration Brinzolamide 0 ml 03/10/24 08:30 03/15/24 09:33 Brinzolamide 1% 10 Ml Btl OP 1 drp TID NANCY Administration Carvedilol 3.125 mg 03/11/24 20:00 03/15/24 09:31 Carvedilol 3.125 Mg Tab PO 3.125 mg BID NANCY Administration Clopidogrel Bisulfate 75 mg 03/14/24 08:30 03/15/24 09:33 Clopidogrel 75 Mg Tab PO 75 mg DAILY NANCY Administration Dextrose 0 gm 03/10/24 00:09 Glucose Oral Gel 15 Gm/37.5 Gm Tube PO DIRECTED PRN Dextrose/Water 0 gm 03/10/24 00:09 Dextrose 50%-Water 25 Gm/50 Ml Syr IVP DIRECTED PRN Docusate Sodium 100 mg 03/09/24 23:47 03/14/24 21:16 Docusate Sodium 100 Mg Cap PO 100 mg TID PRN PRN Administration Empagliflozin 10 mg 03/10/24 08:30 03/15/24 09:32 Empaglifozin 10 Mg Tab PO 10 mg DAILY NANCY Administration Finasteride 5 mg 03/10/24 08:30 03/15/24 09:33 Finasteride 5 Mg Tab PO 5 mg DAILY NANCY Administration Sodium Chloride 500 mls @ 0 mls/hr 03/10/24 09:45 Saline 500ml Bag IV DIRECTED PRN As Directed IV Miscellaneous Supplies 1 each 03/10/24 09:45 Iv Access IV DIRECTED NANCY Magnesium Hydroxide 30 ml 03/09/24 23:47 Milk Of Magnesia 30 Ml Cup PO DAILY PRN PRN Mirtazapine 30 mg 03/10/24 01:37 03/14/24 21:16 Mirtazapine 15 Mg Tab PO 30 mg HS NANCY Administration Ondansetron HCl 4 mg 03/10/24 00:00 Ondansetron 4 Mg/2 Ml Vial IVP Q4H PRN PRN Pantoprazole Sodium 40 mg 03/12/24 07:30 03/15/24 09:32 Pantoprazole 40 Mg Tabcr PO 40 mg DAILY@0730 NANCY Administration Polyethylene Glycol 17 gm 03/09/24 23:47 03/14/24 21:16 Polyethylene Glycol 3350 17 Gm Packet PO 17 gm DAILY PRN PRN Administration Constipation Prednisolone Acetate 0 ml 03/10/24 08:30 03/15/24 09:33 Prednisolone 1% 5 Ml Btl OP 1 drp DAILY NANCY Administration Rosuvastatin Calcium 20 mg 03/10/24 08:30 03/15/24 09:32 Rosuvastatin 20 Mg Tab PO 20 mg DAILY NANCY Administration Sodium Chloride 0 ml 03/09/24 23:43 Normal Saline Flush 10 Ml Syr IVP PRN PRN Sodium Chloride 0 ml 03/10/24 08:30 03/15/24 09:47 Normal Saline Flush 10 Ml Syr IVP Not Given BID NANCY Sodium Chloride 0 ml 03/09/24 23:43 Normal Saline 10 Ml Vial IJ DIRECTED PRN Tamsulosin HCl 0.4 mg 03/10/24 08:30 03/15/24 09:32 Tamsulosin 0.4 Mg Capcr PO 0.4 mg DAILY NANCY Administration Thiamine HCl 100 mg 03/10/24 08:30 03/15/24 09:33 Thiamine 100 Mg Tab PO 100 mg DAILY NANCY Administration Venlafaxine HCl 150 mg 03/10/24 08:30 03/15/24 09:31 Venlafaxine 150 Mg Capcr PO 150 mg DAILY NANCY Administration Venlafaxine HCl 75 mg 03/10/24 08:30 03/15/24 09:32 Venlafaxine 37.5 Mg Capcr PO 75 mg DAILY NANCY Administration PFSH Active Problems Active Problems: Problem Status Onset Code BPH (benign prostatic hyperplasia) N40.0 Hyperlipidemia E78.5 Depression F32.A CAD (coronary artery disease), c[place] dehe coronary artery I25.10 Acute blood loss anemia D62 Acute upper GI bleed K92.2 Hemorrhagic shock R57.8 GI bleeding K92.2 Closed hip fracture S72.009A Tobacco Smoking/Tobacco Use Status: Never Alcohol Alcohol Intake: never Substance Use Substance use: Never Substance use type: does not use Vital Signs and Lab Results Vital Signs Most Recent Vital Signs in EMR: Most Recent Vital Signs Temp Pulse Resp BP Pulse Ox 36.1 C L 81 16 130/71 97 03/15/24 07:35 03/15/24 07:35 03/15/24 07:35 03/15/24 07:35 03/15/24 07:35 Point of Care Results Point of Care Results: Finger Stick Blood Glucose 101 03/10/24 12:04 Lab Results 03/13/24 11:00 03/11/24 05:50 Blood Type / Crossmatch: 2 Antibody Screen NEGATIVE 03/09/24 Crossmatch See Detail 03/09/24 Complete Blood Count: 2 White Blood Count 12.26 10^3/uL (4.4-10.8) H 03/11/24 05:50 Red Blood Count 3.02 10^6/uL (4.36-5.78) L 03/11/24 05:50 Hemoglobin 8.8 g/dL (13.5-17.5) L 03/13/24 11:00 Hematocrit 26.8 % (40.0-50.0) L 03/13/24 11:00 Platelet Count 374 10^3/uL (130-400) 03/11/24 05:50 Complete Metabolic Panel: 2 Sodium 141 mmol/L (136-145) 03/11/24 05:50 Potassium 3.9 mmol/L (3.5-5.1) 03/11/24 05:50 Chloride 110 mmol/L (98-107) H 03/11/24 05:50 Carbon Dioxide 18.1 mmol/L (21.0-32.0) L 03/11/24 05:50 BUN 65 mg/dL (7-18) H 03/11/24 05:50 Creatinine 1.9 mg/dL (0.70-1.30) H 03/11/24 05:50 Est GFR (CKD-EPI 2020) 35.44 (mL/min/1.73m2) 03/11/24 05:50 Magnesium 2.6 mg/dL (1.8-2.4) H 03/09/24 22:18 Calcium 8.1 mg/dL (8.5-10.1) L 03/11/24 05:50 Albumin 2.2 g/dL (3.4-5.0) L 03/10/24 06:18 Glucose 83 mg/dL (74-106) 03/11/24 05:50 Liver Function Panel: 2 Alanine Aminotransferase (ALT/SGPT) 61 U/L (16-63) 03/10/24 06: 18 Aspartate Amino Transf (AST/SGOT) 18 U/L (15-37) 03/10/24 06:18 Coagulation Panel: 2 INR International Normalized Ratio 1.1 (0.9-1.1) 03/10/24 06:1 8 Prothrombin Time 10.8 sec (9.1-11.1) 03/10/24 06:18 Activated Partial Thromboplast Time 26.1 sec (23.6-32.8) 22:18 Cardiac Panel: 2 Troponin I < 50 ng/L (< or =60) 03/10/24 Creatine Kinase 32 U/L (39-308) L 02/20/24 Arterial Blood Gas: 2 No Data to Display Venous Blood Gas: 2 No Data to Display Pancreas Panel: 2 No Data to Display Thyroid Panel: 2 No Data to Display Infectious Disease: 2 No Data to Display Blood Cultures: 2 No Data to Display Toxicology Panel: 2 No Data to Display Anesthesia Assessment and Plan Anesthesia History Personal History: No History of Anesthesia Complications Family History: No Family History of Anesthesia Complications Exercise Tolerance Exercise Tolerance: Metabolic Equivalents>4 Pertinent Negatives Pertinent Negatives: No Symptoms of GERD Cardiac & Pulmonary Exam Cardiac Exam: Normal S1/S2 Heart Sounds Pulmonary Exam: Clear Bilateral Breath Sounds Implantable Cardiac Device Does patient have a Pacemaker or an ICD?: No Airway Exam Known Difficult Airway: No Mallampati Class: 2 Mouth Opening: Normal (> 3cm) Thyromental Distance: Greater than 3 cm Neck Range of Motion: Full ROM Neck Circumference: Normal Teeth Condition: Generalized Poor Dentition ASA Classification ASA Score: ASA 3 Emergency Case?: No NPO Status NPO Status: NPO Clears >2 hours, Solids >8 hours Anesthesia Plan Resuscitation Status: Full Code Anesthesia Technique: General Anesthesia Airway Planned: Natural Airway Monitors Used: Standard Monitors
[2024-03-15 13:57] VITALS: BMI 23.2
[2024-03-15] MEDS: Lactated Ringers 1,000 ML 75 ML IV (14:03)
--- NOTE | 2024-03-15 14:14 | W.ANESVAS ---
Midline Placement Date Performed: 03/15/24 Procedure Time: 13:50 Requesting Provider: Omar Powell Procedure Location: PACU Sedation Given (Indicate Dose Given): No Sedation given Patient Mental Status: Awake Sterility: Hand Hygiene, Surgical Cap, Surgical Mask, Sterile Gloves, Sterile Drape/Sheet and Chlorhexidine Laterality: Right Insertion Site: Basilic Midline Device: PowerGlide Pro 18G Catheter Length: 10 cm Midline Procedure Procedure: Catheter placed without resistance Dressing: Tegaderm Applied and Statlock Applied Blood Return: Present Flushes: Easily Ultrasound: Sterile probe cover and gel used Ultrasound Image Saved?: Yes Number of Attempts (See previous attempts in note section): 1 Procedure Tolerated: No Complications Procedure Outcome: Successful Performed By: Maksim Sheth
[2024-03-15 14:23] VITALS: BP 101/65; PULSE 75; RESP 21; TEMP 36.7; O2SAT 100
[2024-03-15 14:28] VITALS: BP 150/100; PULSE 77; RESP 26; TEMP 36.7; O2SAT 99
[2024-03-15 14:33] VITALS: BP 144/116; PULSE 79; RESP 23; TEMP 36.6; O2SAT 97
--- NOTE | 2024-03-15 14:33 | PDOC.CMPRO ---
Date of service: 03/15/24 Time of Service: 14:33 Care Management Progress Note Progress Note Text Progress Note Text: S/O: Humble was sitting in a chair in his room when CM met with him. He was agreeable to an EGD, not a colonoscopy. Palliative Consult is ordered to discuss his goals of care. Plan is to discharge back to [facility] when medically able. He will likely require a new PA to [facility] because his current PA expires tonight at midnight. PA will take 24-48 hours to process. AYSE Franco: Humble is a 78 year old man admitted on 03/09/24 with a GI Bleed Discharge Anticipated Barriers to Discharge: Medical Status (Discharge readiness is dependent on EGD results.) and Other (If not MR for discharge today, a new PA will be needed before returning to [facility] for STR and will take 1-2 days. ) Patient/Family Education Needs: Review discharge instructions, discuss Ask Me Three Transportation: Facility Transport Plan: [facility]charge back [facility] for STR when medically ready. New PA will be needed for STR, since his current PA expires at midnight. Follow up with community providers and his discharge plan of care as instructed. Transport via facility w/c van. CM is following. SDOH(Care Management) Screening Will the Patient Participate in the Screening?: Yes Do you worry about having a steady place to live?: no In the past 12 months, have you had to go without electric, gas, oil or water in your home?: no Have you or anyone in your house had to go without enough food to eat?: no Has lack of transportation kept you from medical appointments or from doing things needed for daily living?: no Has anyone in your support network made you feel unsafe for any reason?: no
--- NOTE | 2024-03-15 14:34 | W.ANESPOSTOP ---
Postoperative Evaluation Date, Time and Location Date Performed: 03/15/24 Time Performed: 14:34 Patient Location: Day Surgery Unit Vital Signs Most Recent Imported Vital Signs: Most Recent Vital Signs Temp Pulse Resp BP Pulse Ox 36.7 C 77 26 H 150/100 H 99 03/15/24 14:28 03/15/24 14:28 03/15/24 14:28 03/15/24 14:28 03/15/24 14:28 Pain Score Most Recent Pain Score: Most Recent Pain Score Pain Level [Left upper arm] 0 03/14/24 00:45 Pain Level 2 03/15/24 07:35 Assessment Mental Status: Awake (Alert & Oriented to Patient Baseline) Airway and Respiratory Function: Patent airway with normal (patient baseline) respiratory exam Cardiovascular Function: Hemodynamically Stable Hydration Status: Adequately Hydrated Nausea & Vomiting: No Nausea or Vomiting Pain: Pt. Denies Any Pain Peripheral Nerve Block: Patient did not receive a nerve block
[2024-03-15 14:38] VITALS: BP 145/78; PULSE 78; RESP 17; TEMP 36.6; O2SAT 98
[2024-03-15 14:56] VITALS: BP 147/63; PULSE 73; RESP 12; TEMP 36.2; O2SAT 97
--- NOTE | 2024-03-15 15:13 | W.PM.DS.N ---
Date of service: 03/15/24 Time of Service: 15:13 DS: Diagnosis Discharge Diagnosis (1) Acute upper GI bleed: Status: Acute (2) Hemorrhagic shock: Status: Acute (3) Acute blood loss anemia: Status: Chronic (4) CAD (coronary artery disease), [place] coronary artery: Status: Chronic (5) Gastric ulcer: Status: Acute (6) Hiatal hernia: Status: Chronic Discharge Plan Disposition Patient Disposition: Long Term Facility(SNF) Condition: Fair Discharge Details Reason For Visit: Upper GI bleed, Acute blood loss anemia, CAD Admit Date/Time: 03/09/24 23:44 Admit Provider: Kenroy Jordan Attending Provider: Kenroy Jordan Primary Care Provider: Evelin Wise Hospital Course Hospital Course: 78 yo male who has suffered humerus fracture, AK with LAD stent in setting of UTI and rhabdomyolysis, and subsequent hip fracture in the past 2 months who presented with vomiting red blood and melanotic stool at [facility] and [facility]. His initial hemoglobin was 5.7 and he received 3 units of PRBC. His aspirin and plavix were held and his hgb remained stable. He did not have chest pain while admitted, EKG and troponins on admission reassuring. Case was discussed with [facility] cardiology and gastroenterology. Cardiology recommended resuming DAPT, which was done 03/14. GI recommended repeating EGD and colonoscopy before discharge given high risk of rebleed (last EGD/colo done at [facility] [place] 02/2023 after presumed diverticular bleed). Mr. Paredes refused to complete colonoscopy prep so we proceeded with EGD by Dr. Dubois, as the history was c/w UGI bleed anyways. Gastric ucler and punctate hemorrhages were found within hiatal hernia. Pantoprazole was increased to BID and carafate started. He may consider repeat EGD with biopsy when he is more remote from his AK/stent, Amairani Fundoplication to prevent recurrence. Home Meds and New Rx's Prescriptions: New sucralfate 1 gram Tablet 1 g PO AC & HS 30 Days Qty: 0 0RF pantoprazole 40 mg Tablet,Delayed Release (Dr/Ec) 40 mg PO BID@0730,1999 Qty: 0 0RF Continued rosuvastatin 20 mg tablet 20 mg PO DAILY tamsulosin 0.4 mg capsule 0.4 mg PO DAILY thiamine HCl (vitamin B1) 100 mg tablet 100 mg PO DAILY venlafaxine 150 mg capsule,extended release 24hr 150 mg PO DAILY Patient Comments: take with 75mg venlafaxine for total of 225mg venlafaxine 75 mg tablet 75 mg PO DAILY acetaminophen 325 mg capsule 650 mg PO Q6H PRN Rx Instructions: every 5 hours as needed for mild pain aspirin 81 mg tablet,chewable 81 mg PO DAILY brinzolamide 1 % drops,suspension 1 drp ophthalmic (eye) TID carvedilol 6.25 mg tablet 6.25 mg PO BID Rx Instructions: must administer with a meal/food clopidogrel 75 mg tablet 75 mg PO DAILY bisacodyl [Dulcolax (bisacodyl)] 10 mg suppository [address] DAILY PRN empagliflozin 10 mg tablet 10 mg PO DAILY finasteride 5 mg tablet 5 mg PO DAILY Fleet Enema 19-7 gram/118 mL enema [address] DAILY PRN magnesium hydroxide [Milk of Magnesia] 400 mg/5 mL suspension 30 ml PO DAILY PRN Rx Instructions: Give 30 ml by mouth every 24 hours as needed for constipation give at bedtime if no BM in 3 days. polyethylene glycol 3350 17 gram/dose powder 17 g PO DAILY Rx Instructions: every 24 hours as needed for constipation in 4 to 8 ounces of fluid if no BM in 3 days. mirtazapine 30 mg tablet 30 mg PO QHS oxycodone 5 mg tablet 5 mg PO Q6H Rx Instructions: 1 tab by mouth every 6 hours as needed for pain for 14 days beginning on 02/16/24. prednisolone acetate 1 % drops,suspension 1 drp ophthalmic (eye) DAILY Rx Instructions: 1 drop in right eye one time per day for eye pain. Discharge Instructions Additional Instructions: Should have hemoglobin levels checked in 2 days Activity:: Activity as Tolerated Equipment/Supplies:: No Equipment Needed Diet:: As Tolerated Discharge Orders Discharge Orders: Discharge Order (Routine); Ordered 03/15/24 Ordered By: Humble Lee Other Ambulatory Orders: Complete Blood Count w/Diff (Routine) Timeframe: 2 Days Facility: [facility] - Location: Laboratory Outpatient - [facility] Ordered By: Humble Lee DS: Summary Time Spent with Patient providing and/or coordinating discharge services: Greater than 30 minutes Status at Discharge Functional status at discharge: independent ambulation Overall status at discharge: patient is back to baseline Mental Status: mental status grossly normal Speech and Movement: speech and movement normal Mood: congruent mood Affect: normal affect Quality:SDOH Health Related Social Needs: No Data to Display Exam Narrative Exam Narrative: Older gentleman laying in bed, up to chair, in no acute distress, ANO x 4 but confuses history at times, heart regular rhythm, lungs clear to auscultation bilaterally, abdomen soft, non-tender, non-distended. Ext not tender, no edema. Psych Mental Status: mental status grossly normal Speech and Movement: speech and movement normal Mood: congruent mood Affect: normal affect DS: Data Vitals/I&O Vitals and I&O: Vital Signs Temperature 36.2 C L 03/15/24 14:56 Temperature Source Temporal Artery Scan 03/15/24 14:56 Pulse 73 03/15/24 14:56 Pulse Rhythm Regular 03/15/24 07:30 Pulse 76 03/11/24 15:07 Respiratory Rate 12 03/15/24 14:56 Respiratory Effort Normal, Non-Labored 03/15/24 07:30 Respiratory Depth Normal 03/15/24 07:30 Respiratory Pattern Normal 03/15/24 07:30 Blood Pressure 147/63 H 03/15/24 14:56 Blood Pressure Mean 80 03/11/24 15:07 Blood Pressure Position Sitting 03/09/24 22:12 Pulse Oximetry 97 03/15/24 14:56 Respiratory End-tidal CO2 26 03/15/24 14:38 Oxygen Delivery Method Room Air 03/15/24 14:56 Oxygen Flow Rate 0 03/15/24 14:56 Pain Level 0 03/15/24 14:56 Comment refused 03/15/24 03:56 Intake & Output 03/14/24 03/15/24 03/15/24 23:59 11:59 23:59 Intake Total 1200 / 1200 250 / 250 Output Total 925 / 2150 Balance 275 / -950 250 / 250 Weight 80 kg Intake: IV 250 / 250 Oral 1200 / 1200 Output: Urine 925 / 2150 Other: Urine Color Yellow Urine Appearance Clear Clear Urine Odor None Stool Size Copious Stool Characteristics Liquid Emesis Description None Voiding Methods Urinal Incontinent PFSH All Active Problems (Updated 03/15/24 @ 15:14 by Humble Lee) Hiatal hernia (Chronic) Gastric ulcer (Acute) BPH (benign prostatic hyperplasia) (Chronic) Hyperlipidemia (Chronic) Depression (Chronic) CAD (coronary artery disease), [place] coronary artery (Chronic) Acute blood loss anemia (Chronic) Acute upper GI bleed (Acute) Hemorrhagic shock (Acute) GI bleeding (Acute) Closed hip fracture (Acute) Social History Smoking/Tobacco Use Status: Never Smoking risk assessment performed?: Yes Alcohol Intake: never Drug use: Never Substance use type: does not use Housing: apartment Do you feel safe at home: Yes Do you feel safe in your relationship?: Yes Time Spent with Patient Time Spent with Patient: <45 minutes Time was spent: preparing to see the patient(eg.review tests), obtaining and/or reviewing separately otained hiistory, ordering medications,tests, procedures, referring, communicating with other health animal care taker, indepentently interpreting results, counseling the patient and care coordination
--- NOTE | 2024-03-15 15:29 | NUR.NOTE ---
Addendum entered by Godfrey Vásquez RN 03/15/24 16:40: Spoke with Max at [facility], and full report was given. All questions were answered. Addendum entered by Godfrey Vásquez RN 03/15/24 16:00: Several more attempts were made to reach staff at [facility], but no staff answered the phone. Original Note: Nursing Note: Several attempts were made to reach [facility] staff to give [id number] report, but was unable to reach any nursing staff.
--- NOTE | 2024-03-15 15:58 | PDOC.CMDIS ---
Date of service: 03/15/24 Time of Service: 15:58 LACE Index Scoring Tool Questions: Length of Stay (in days): 4 - 6 Was the patient admitted via the E.D.?: Yes E.D. Visits: 2 Answers: Total Score: 9 Risk of Readmission: Low Risk Care Management Discharge Plan Reason for Hospitalization: upper GI bleed Discharge Plan: Humble is discharged back to [facility] for STR. He will follow up with community providers and his discharge plan of care as instructed. He is driven by [facility] private vehicle. Patient/Family Education Needs: Review discharge instructions, limitations, medications and plan to follow up with community providers. Discuss ask me three Services Needed at Discharge: Fdc Facility (Returned to [facility] for STR) and Transportation ([facility] private vehicle) SDOH Health Related Social Needs: No Data to Display
== END 2024-03-15 16:50 | disposition skilled nursing facility (03) | DRG 377 ==
LOC: ER 03-10 → ICU 03-10 01:18 → MS 03-11 15:45
PROVIDERS: Emergency Medicine; Family Medicine; Surgery; Admitting Provider Family Medicine; Emergency Provider Student in an Organized Health Care Education/Training Program; PCP Nurse Practitioner Family; Visit Provider Family Medicine
PROC: 0DJ68ZZ Inspection of Stomach, Via Natural or Artificial Opening Endoscopic (ICD-10-PCS; CPT 43235; principal; 2024-03-15 13:30)
DX: K25.4 Chronic or unspecified gastric ulcer with hemorrhage (principal); R57.1 Hypovolemic shock; D62 Acute posthemorrhagic anemia; K22.11 Ulcer of esophagus with bleeding; I25.10 Atherosclerotic heart disease of native coronary artery without angina pectoris; F32.89 Other specified depressive episodes; E78.2 Mixed hyperlipidemia; K44.9 Diaphragmatic hernia without obstruction or gangrene; N40.0 Benign prostatic hyperplasia without lower urinary tract symptoms; I25.2 Old myocardial infarction; N18.9 Chronic kidney disease, unspecified; I50.9 Heart failure, unspecified; G47.33 Obstructive sleep apnea (adult) (pediatric); Z79.82 Long term (current) use of aspirin; Z79.01 Long term (current) use of anticoagulants; Z79.899 Other long term (current) drug therapy; E86.0 Dehydration; Z95.5 Presence of coronary angioplasty implant and graft
CPT/HCPCS: 43235; 00123; 36410; 36415; 36430; 76942; 80048; 80053; 85027; 86850; 86900; 86901; 86920; 87641; 93005; 96361; 96374; 96375; 97110; 97162; 97530; 99222; 99231; 99232; 99291; 83735; 84484; 85014; 85018; 85025; 85610; 85730; 93010; 99223; 99233; 99238; J0131; J1815; J2001; J2405; J2470; J2704; J3490; P9016

== ENCOUNTER 2024-04-03 18:08 | Outpatient (REF) | payer MEDICARE, MEDICAID, SELFPAY ==
[2024-04-03 18:01] LABS: HCT 32.5 % (40.0-50.0); HGB 9.9 g/dL (13.5-17.5); MCH 26.5 pg (27.0-33.0); MCHC 30.5 % (32.0-36.0); MCV 87 fL (80-95); MPV 9.6 fL (8.0-11.0); RBC 3.74 10^6/uL (4.36-5.78); RDW 17.5 % (11.8-14.1); RDW-SD 56.2 fL; WBC 20.07 10^3/uL (4.4-10.8)
[2024-04-03 18:10] LABS: ALT 133 U/L (16-63); AST 68 U/L (15-37); Albumin 2.6 g/dL (3.4-5.0); Alkaline Phosphatase 627 U/L (46-116); Anion Gap 12.1 mmol/L (3-11); BUN 25 mg/dL (7-18); Bilirubin, Total 0.5 mg/dL (0.2-1.0); CO2 24.9 mmol/L (21.0-32.0); CREATININE 1.5 mg/dL (0.70-1.30); Calcium 8.9 mg/dL (8.5-10.1); Chloride 104 mmol/L (98-107); Estimated GFR 47.06 (mL/min/1.73m2); Glucose 100 mg/dL (74-106); Potassium 4.2 mmol/L (3.5-5.1); Sodium 141 mmol/L (136-145); Total Protein 6.3 g/dL (6.4-8.2)
[2024-04-03 18:35] LABS: Hemoglobin A1C 5.7 % (<5.7)
[2024-04-03 18:40] LABS: Absolute Lymphocyte Count 1.81 10^3/uL (1.2-3.4); Absolute Neutrophil Count 16.86 10^3/uL (1.2-6.7); Bands % 3 %; Diff Comment Manual Differential; Metamyelocytes % 1; Platelet Count 633 10^3/uL (130-400); Promyelocytes % 1
[2024-04-03 18:41] LABS: Anisocytosis 1+; Hypochromasia 1+; Poikilocytes 1+
== END 2024-04-03 18:09 | disposition home or self-care (01) ==
LOC: LBN 18:08
PROVIDERS: PCP Nurse Practitioner Family; Visit Provider Nurse Practitioner Family
DX: D64.9 Anemia, unspecified (principal); E78.5 Hyperlipidemia, unspecified; I25.10 Atherosclerotic heart disease of native coronary artery without angina pectoris; R79.89 Other specified abnormal findings of blood chemistry
CPT/HCPCS: 80053; 83036; 85025

== ENCOUNTER 2024-05-17 22:39 | Outpatient (REF) | payer MEDICARE, MEDICAID, SELFPAY ==
[2024-05-15 20:27] LABS: Abs Immature Grans 0.03 10^3/uL (0.0-0.06); Absolute Basophil Count 0.09 10^3/uL (0.0-0.2); Absolute Eosinophil Count 0.23 10^3/uL (0.0-0.7); Absolute Lymphocyte Count 1.55 10^3/uL (1.2-3.4); Absolute Monocyte Count 0.58 10^3/uL (0.1-0.8); Absolute Neutrophil Count 4.58 10^3/uL (1.2-6.7); Basophils % 1.3 %; Eosinophils % 3.3 %; HGB 9.6 g/dL (13.5-17.5); Immature Grans % 0.4 %; MCH 24.9 pg (27.0-33.0); MCV 83 fL (80-95); MPV 11.2 fL (8.0-11.0); Monocytes % 8.2 %; Neutrophils % 64.8 %; Platelet Count 317 10^3/uL (130-400); RBC 3.86 10^6/uL (4.36-5.78); RDW 16.3 % (11.8-14.1); RDW-SD 49.2 fL; WBC 7.06 10^3/uL (4.4-10.8)
[2024-05-15 20:32] LABS: Anion Gap 12.8 mmol/L (3-11); BUN 49 mg/dL (7-18); CO2 21.2 mmol/L (21.0-32.0); CREATININE 1.6 mg/dL (0.70-1.30); Calcium 8.8 mg/dL (8.5-10.1); Chloride 110 mmol/L (98-107); Estimated GFR 43.56 (mL/min/1.73m2); Glucose 134 mg/dL (74-106); Potassium 4.2 mmol/L (3.5-5.1); Sodium 144 mmol/L (136-145)
== END 2024-05-17 22:40 | disposition home or self-care (01) ==
LOC: LBN 22:39
PROVIDERS: PCP Nurse Practitioner Family; Visit Provider Family Medicine
DX: D64.9 Anemia, unspecified (principal); I25.10 Atherosclerotic heart disease of native coronary artery without angina pectoris; E78.5 Hyperlipidemia, unspecified; K92.2 Gastrointestinal hemorrhage, unspecified; R79.89 Other specified abnormal findings of blood chemistry
CPT/HCPCS: 80048; 85025

== ENCOUNTER 2024-06-11 15:22 | Outpatient (REF) | payer MEDICARE, MEDICAID, SELFPAY ==
[2024-06-11 23:17] LABS: Anion Gap 14.3 mmol/L (3-11); BUN 42 mg/dL (7-18); CO2 20.7 mmol/L (21.0-32.0); CREATININE 1.9 mg/dL (0.70-1.30); Calcium 8.5 mg/dL (8.5-10.1); Chloride 108 mmol/L (98-107); Estimated GFR 35.44 (mL/min/1.73m2); Glucose 101 mg/dL (74-106); Potassium 4.5 mmol/L (3.5-5.1); Sodium 143 mmol/L (136-145)
== END 2024-06-11 15:23 | disposition home or self-care (01) ==
LOC: LBN 15:22
PROVIDERS: PCP Nurse Practitioner Family; Visit Provider Family Medicine
DX: R68.89 Other general symptoms and signs (principal)
CPT/HCPCS: 80048

== ENCOUNTER 2024-07-09 22:12 | Outpatient (REF) | payer MEDICARE, MEDICAID, SELFPAY ==
[2024-07-09 15:10] LABS: HCT 30.2 % (40.0-50.0); HGB 8.8 g/dL (13.5-17.5); MCH 22.9 pg (27.0-33.0); MCHC 29.1 % (32.0-36.0); MCV 78 fL (80-95); MPV 11.2 fL (8.0-11.0); Platelet Count 383 10^3/uL (130-400); RBC 3.85 10^6/uL (4.36-5.78); RDW 16.5 % (11.8-14.1); RDW-SD 47.4 fL; WBC 6.74 10^3/uL (4.4-10.8)
[2024-07-09 15:14] LABS: Anion Gap 12.8 mmol/L (3-11); BUN 43 mg/dL (7-18); CO2 22.2 mmol/L (21.0-32.0); CREATININE 2.1 mg/dL (0.70-1.30); Calcium 8.6 mg/dL (8.5-10.1); Chloride 108 mmol/L (98-107); Estimated GFR 31.23 (mL/min/1.73m2); Glucose 113 mg/dL (74-106); Potassium 4.6 mmol/L (3.5-5.1); Sodium 143 mmol/L (136-145)
[2024-07-09 15:31] LABS: Hemoglobin A1C 5.4 % (<5.7)
== END 2024-07-09 22:13 | disposition home or self-care (01) ==
LOC: LBN 22:12
PROVIDERS: PCP Nurse Practitioner Family; Visit Provider Family Medicine
DX: R68.89 Other general symptoms and signs (principal)
CPT/HCPCS: 80048; 85027; 83036; 85025

== ENCOUNTER 2024-09-12 12:48 | Outpatient (REF) | payer MEDICARE, MEDICAID, SELFPAY ==
[2024-09-12 15:51] LABS: MCH 23.1 pg (27.0-33.0); MCV 80 fL (80-95); MPV 12.1 fL (8.0-11.0); Platelet Count 269 10^3/uL (130-400); RBC 3.89 10^6/uL (4.36-5.78); RDW-SD 61.1 fL; WBC 6.39 10^3/uL (4.4-10.8)
[2024-09-12 16:01] LABS: Anion Gap 12.7 mmol/L (3-11); BUN 33 mg/dL (7-18); CO2 21.3 mmol/L (21.0-32.0); CREATININE 2.2 mg/dL (0.70-1.30); Chloride 111 mmol/L (98-107); Estimated GFR 29.54 (mL/min/1.73m2); Glucose 103 mg/dL (74-106); Potassium 4.6 mmol/L (3.5-5.1); Sodium 145 mmol/L (136-145)
[2024-09-12 17:11] LABS: RDW 21.2 % (11.8-14.1)
== END 2024-09-12 12:49 | disposition home or self-care (01) ==
LOC: LBN 12:48
PROVIDERS: PCP Nurse Practitioner Family; Visit Provider Family Medicine
DX: D62 Acute posthemorrhagic anemia (principal)
CPT/HCPCS: 80048; 85027

== ENCOUNTER 2024-09-18 16:17 | Outpatient (REF) | payer MEDICARE, MEDICAID, SELFPAY ==
[2024-09-18 16:50] LABS: Abs Immature Grans 0.04 10^3/uL (0.0-0.06); Absolute Basophil Count 0.11 10^3/uL (0.0-0.2); Absolute Lymphocyte Count 1.75 10^3/uL (1.2-3.4); Absolute Monocyte Count 0.83 10^3/uL (0.1-0.8); Absolute Neutrophil Count 5.39 10^3/uL (1.2-6.7); Basophils % 1.3 %; Eosinophils % 3.6 %; HCT 35.9 % (40.0-50.0); HGB 10.4 g/dL (13.5-17.5); Immature Grans % 0.5 %; Lymphocytes % 20.8 %; MCH 23.1 pg (27.0-33.0); MCV 80 fL (80-95); MPV 12.4 fL (8.0-11.0); Monocytes % 9.9 %; Neutrophils % 63.9 %; Platelet Count 350 10^3/uL (130-400); RBC 4.51 10^6/uL (4.36-5.78); RDW 21.2 % (11.8-14.1); RDW-SD 60.4 fL; WBC 8.42 10^3/uL (4.4-10.8)
[2024-09-18 17:14] LABS: Anion Gap 11.9 mmol/L (3-11); BUN 32 mg/dL (7-18); CO2 23.1 mmol/L (21.0-32.0); CREATININE 2.2 mg/dL (0.70-1.30); Calcium 8.8 mg/dL (8.5-10.1); Chloride 107 mmol/L (98-107); Estimated GFR 29.54 (mL/min/1.73m2); Glucose 130 mg/dL (74-106); Potassium 4.6 mmol/L (3.5-5.1); Sodium 142 mmol/L (136-145)
[2024-09-18 17:57] LABS: Anisocytosis 2+; Diff Comment RBC Morph Reviewed
[2024-09-18 17:58] LABS: Poikilocytes 2+
== END 2024-09-18 16:18 | disposition home or self-care (01) ==
LOC: LBN 16:17
PROVIDERS: PCP Nurse Practitioner Family; Visit Provider Family Medicine
DX: E11.9 Type 2 diabetes mellitus without complications (principal)
CPT/HCPCS: 80048; 85025

== ENCOUNTER 2025-02-06 13:53 | Outpatient (REF) | payer MEDICARE, MEDICAID, SELFPAY ==
[2025-02-06 14:47] LABS: Abs Immature Grans 0.04 10^3/uL (0.0-0.06); Absolute Basophil Count 0.09 10^3/uL (0.0-0.2); Absolute Eosinophil Count 0.33 10^3/uL (0.0-0.7); Absolute Lymphocyte Count 1.59 10^3/uL (1.2-3.4); Absolute Monocyte Count 0.92 10^3/uL (0.1-0.8); Basophils % 1.2 %; Eosinophils % 4.2 %; HCT 37.9 % (40.0-50.0); HGB 11.8 g/dL (13.5-17.5); Immature Grans % 0.5 %; Lymphocytes % 20.5 %; MCH 26.8 pg (27.0-33.0); MCHC 31.1 % (32.0-36.0); MCV 86 fL (80-95); MPV 12.1 fL (8.0-11.0); Monocytes % 11.8 %; Neutrophils % 61.8 %; Platelet Count 278 10^3/uL (130-400); RBC 4.41 10^6/uL (4.36-5.78); RDW 16.6 % (11.8-14.1); RDW-SD 52.5 fL; WBC 7.77 10^3/uL (4.4-10.8)
[2025-02-06 15:17] LABS: ALT 18 U/L (16-63); AST 11 U/L (15-37); Albumin 3.6 g/dL (3.4-5.0); Alkaline Phosphatase 139 U/L (46-116); Anion Gap 11.1 mmol/L (3-11); BUN 39 mg/dL (7-18); Bilirubin, Total 0.4 mg/dL (0.2-1.0); CO2 23.9 mmol/L (21.0-32.0); CREATININE 2.4 mg/dL (0.70-1.30); Calcium 8.9 mg/dL (8.5-10.1); Chloride 109 mmol/L (98-107); Estimated GFR 26.61 (mL/min/1.73m2); Glucose 102 mg/dL (74-106); Potassium 4.4 mmol/L (3.5-5.1); Sodium 144 mmol/L (136-145); Total Protein 6.7 g/dL (6.4-8.2)
== END 2025-02-06 13:54 | disposition home or self-care (01) ==
LOC: LBN 13:53
PROVIDERS: PCP Nurse Practitioner Family; Visit Provider Nurse Practitioner Gerontology
DX: E11.9 Type 2 diabetes mellitus without complications (principal); N18.32 Chronic kidney disease, stage 3b
CPT/HCPCS: 80053; 85025

== ENCOUNTER 2025-03-14 20:14 | Outpatient (REF) | payer MEDICARE, MEDICAID, SELFPAY ==
[2025-03-14 14:41] LABS: Abs Immature Grans 0.03 10^3/uL (0.0-0.06); Absolute Basophil Count 0.09 10^3/uL (0.0-0.2); Absolute Eosinophil Count 0.34 10^3/uL (0.0-0.7); Absolute Lymphocyte Count 1.64 10^3/uL (1.2-3.4); Absolute Monocyte Count 0.81 10^3/uL (0.1-0.8); Absolute Neutrophil Count 4.01 10^3/uL (1.2-6.7); Basophils % 1.3 %; Eosinophils % 4.9 %; HCT 36.3 % (40.0-50.0); HGB 11.2 g/dL (13.5-17.5); Immature Grans % 0.4 %; Lymphocytes % 23.7 %; MCH 26.9 pg (27.0-33.0); MCHC 30.9 % (32.0-36.0); MCV 87 fL (80-95); MPV 11.9 fL (8.0-11.0); Monocytes % 11.7 %; Platelet Count 286 10^3/uL (130-400); RBC 4.16 10^6/uL (4.36-5.78); RDW 15.7 % (11.8-14.1); RDW-SD 50.4 fL; WBC 6.92 10^3/uL (4.4-10.8)
[2025-03-14 15:01] LABS: ALT 16 U/L (16-63); AST 13 U/L (15-37); Albumin 3.4 g/dL (3.4-5.0); Alkaline Phosphatase 144 U/L (46-116); Anion Gap 10.5 mmol/L (3-11); BUN 51 mg/dL (7-18); Bilirubin, Total 0.2 mg/dL (0.2-1.0); CO2 23.5 mmol/L (21.0-32.0); CREATININE 2.2 mg/dL (0.70-1.30); Calcium 8.6 mg/dL (8.5-10.1); Chloride 110 mmol/L (98-107); Estimated GFR 29.54 (mL/min/1.73m2); Glucose 91 mg/dL (74-106); Potassium 4.5 mmol/L (3.5-5.1); Sodium 144 mmol/L (136-145); Total Protein 6.3 g/dL (6.4-8.2)
== END 2025-03-14 20:15 | disposition home or self-care (01) ==
LOC: LBN 20:14
PROVIDERS: PCP Nurse Practitioner Family; Visit Provider Family Medicine Geriatric Medicine
DX: E44.1 Mild protein-calorie malnutrition (principal); E11.9 Type 2 diabetes mellitus without complications; D50.0 Iron deficiency anemia secondary to blood loss (chronic)
CPT/HCPCS: 80053; 85025

== ENCOUNTER 2025-04-11 15:02 | Outpatient (REF) | payer MEDICARE, MEDICAID, SELFPAY ==
[2025-04-11 14:00] LABS: Abs Immature Grans 0.03 10^3/uL (0.0-0.06); Absolute Basophil Count 0.08 10^3/uL (0.0-0.2); Absolute Eosinophil Count 0.22 10^3/uL (0.0-0.7); Absolute Lymphocyte Count 1.57 10^3/uL (1.2-3.4); Absolute Monocyte Count 0.83 10^3/uL (0.1-0.8); Absolute Neutrophil Count 3.66 10^3/uL (1.2-6.7); Basophils % 1.3 %; Eosinophils % 3.4 %; HCT 36.3 % (40.0-50.0); HGB 11.2 g/dL (13.5-17.5); Immature Grans % 0.5 %; Lymphocytes % 24.6 %; MCH 26.5 pg (27.0-33.0); MCHC 30.9 % (32.0-36.0); MCV 86 fL (80-95); Neutrophils % 57.2 %; Platelet Count 211 10^3/uL (130-400); RBC 4.23 10^6/uL (4.36-5.78); RDW 14.9 % (11.8-14.1); WBC 6.39 10^3/uL (4.4-10.8)
[2025-04-11 14:23] LABS: ALT 22 U/L (16-63); AST 11 U/L (15-37); Albumin 3.4 g/dL (3.4-5.0); Alkaline Phosphatase 134 U/L (46-116); Anion Gap 10.1 mmol/L (3-11); BUN 43 mg/dL (7-18); Bilirubin, Total 0.3 mg/dL (0.2-1.0); CO2 23.9 mmol/L (21.0-32.0); Calcium 8.6 mg/dL (8.5-10.1); Calculated LDL 41 mg/dL (<100); Chloride 106 mmol/L (98-107); Cholesterol 116 mg/dL (<200); Estimated GFR 33.12 (mL/min/1.73m2); Glucose 93 mg/dL (74-106); HDL Cholesterol 45 mg/dL (>or=40); Potassium 4.2 mmol/L (3.5-5.1); Sodium 140 mmol/L (136-145); Total Protein 6.3 g/dL (6.4-8.2); Triglyceride 153 mg/dL (<150)
[2025-04-11 16:02] LABS: Hemoglobin A1C 5.8 % (<5.7)
== END 2025-04-11 15:03 | disposition home or self-care (01) ==
LOC: LBN 15:02
PROVIDERS: PCP Nurse Practitioner Family; Visit Provider Family Medicine
DX: I25.10 Atherosclerotic heart disease of native coronary artery without angina pectoris (principal); N18.32 Chronic kidney disease, stage 3b; E78.5 Hyperlipidemia, unspecified
CPT/HCPCS: 80053; 80061; 83036; 85025

== ENCOUNTER 2025-06-27 07:40 | Inpatient (IN) | payer MEDICARE, SELFPAY ==
[2025-06-27] VITALS (23 sets, daily range): BP systolic 96–180; BP diastolic 60–78; PULSE 60–78; RESP 8–143; TEMP 35.6–36.8; O2SAT 85–100; BMI 28.6
--- NOTE | 2025-06-27 08:15 | DI.RAD_ITS ---
Exam(s) XR PELVIS AP XR FEMUR LT EXAM: XR PELVIS AP CLINICAL HISTORY: pain left hip, fall. TECHNIQUE: 2D digital imaging was performed. Single AP view of the pelvis. AP and lateral views of the femur. COMPARISON: CT CT PELVIC WO from 02/20/2024 CR XR FEMUR LT from 06/27/2025 FINDINGS: BONES: There is an intertrochanteric fracture of the left femur with mild displacement. No additional fractures are identified in the pelvis or more distally in the femur. The bones appear osteopenic. There is a right hip prosthesis. No bony destructive lesion is seen. JOINTS: No dislocation present. No joint space narrowing is present. SOFT TISSUE: Normal. IMPRESSION: Intertrochanteric fracture of the left femur. DATA REPOSITORY: RADIATION DOSE DELIVERED:
--- NOTE | 2025-06-27 09:20 | ED.GENADUL_ITS ---
Discharge Plan Disposition Patient Disposition: Admit to [facility] Condition: Serious Discharge Details Clinical Impression: Closed intertrochanteric fracture of left femur Primary Care Provider: Evelin Wise ED Provider: Rene Caballero Home Meds and New Rx's Prescriptions: No Action acetaminophen 325 mg capsule See Rx Instructions PO Q6H PRN Rx Instructions: 1 GM Q 6h PRN orally every 6 hours PRN; every 5 hours as needed for mild pain diazepam 5 mg tablet 5 mg PO QHS ondansetron HCl 4 mg tablet 4 mg PO Q6H PRN albuterol sulfate 90 mcg/actuation aero powdr breath act w/sensor 2 inh inhalation Q4H PRN (Reason: shortness of breath or wheezing) Qty: 1 0RF valsartan 40 mg tablet 20 mg PO BID ferrous gluconate 324 mg (38 mg iron) tablet 324 mg PO DAILY pantoprazole 40 mg Tablet,Delayed Release (Dr/Ec) 40 mg PO BID@0730,2000 Qty: 0 0RF rosuvastatin 20 mg tablet 20 mg PO DAILY tamsulosin 0.4 mg capsule 0.4 mg PO DAILY venlafaxine 150 mg capsule,extended release 24hr 150 mg PO DAILY Patient Comments: take with 75mg venlafaxine for total of 225mg venlafaxine 75 mg tablet 75 mg PO DAILY aspirin 81 mg tablet,chewable 81 mg PO DAILY carvedilol 6.25 mg tablet 6.25 mg PO BID Rx Instructions: must administer with a meal/food empagliflozin 10 mg tablet 10 mg PO DAILY finasteride 5 mg tablet 5 mg PO DAILY magnesium hydroxide [Milk of Magnesia] 400 mg/5 mL suspension 30 ml PO DAILY PRN Rx Instructions: Give 30 ml by mouth every 24 hours as needed for constipation give at bedtime if no BM in 3 days. prednisolone acetate 1 % drops,suspension 1 drp ophthalmic (eye) DAILY Rx Instructions: 1 drop in right eye one time per day for eye pain. brinzolamide 1 % drops,suspension 1 drp ophthalmic (eye) TID Rx Instructions: Left Eye only simethicone [Gas Relief (simethicone)] 125 mg capsule 125 mg PO DAILY PRN trazodone 150 mg tablet 150 mg PO QHS cholecalciferol (vitamin D3) 125 mcg (5,000 unit) capsule 5,000 unit PO DAILY docusate sodium 100 mg capsule 100 mg PO DAILY PRN bisacodyl [Dulcolax (bisacodyl)] 10 mg suppository 10 mg DC DAILY PRN glucagon 1 mg kit 1 mg IM PRN dextrose [Glucose Gel] 40 % gel 10 g PO Q15M PRN Rx Instructions: until symptoms of low blood sugar are controlled HPI General Mode of arrival: EMS . Date/Time Provider Initiated Documentation: 06/27/25 08:08 . Limitations to Documentation: no limitations . Information obtained by: patient and EMS . HPI Narrative: HISTORY OF PRESENT ILLNESS 79-year-old male with history of femur fracture and hip crack from previous falls, presenting [facility] a [facility] jail. Fell while changing pants, landed on left hip. No head injury, headache, or loss of consciousness. Pain localized to hip, unable to fully extend leg due to pain. Uncertain about current medication regimen, including anticoagulants. Related Data Home Medications ?Medication ?Instructions ?Recorded ?Confirmed aspirin 81 mg chewable tablet 81 mg PO DAILY 02/19/24 06/27/25 carvedilol 6.25 mg tablet 6.25 mg PO BID 02/19/2403/16 empagliflozin 10 mg tablet 10 mg PO DAILY 02/19/2403/16 finasteride 5 mg tablet 5 mg PO DAILY 02/19/2406/27 magnesium hydroxide 400 mg/5 mL 30 ml PO DAILY PRN 06/27/25 oral suspension (Milk of Magnesia) prednisolone acetate 1 % eye 1 drp ophthalmic (eye) DA JOYCE 02/19/24 06/27/25 drops,suspension rosuvastatin 20 mg tablet 20 mg PO DAILY 02/19/2403/16 tamsulosin 0.4 mg capsule 0.4 mg PO DAILY 02/19/2403/16 venlafaxine 150 mg 150 mg PO DAILY 02/19/2403/16 capsule,extended release 24 hr venlafaxine 75 mg tablet 75 mg PO DAILY 02/19/2403/16 pantoprazole 40 mg tablet,delayed 40 mg PO BID@0730,20 00 #0 tabs 03/15/24 06/27/25 release acetaminophen 325 mg capsule See Rx Instructions PO Q6 H PRN 03/21/24 06/27/25 brinzolamide 1 % eye 1 drp ophthalmic (eye) TID 0 05/07/24 06/27/25 drops,suspension ferrous gluconate 324 mg (38 mg 324 mg PO DAILY 06/27/25 iron) tablet valsartan 40 mg tablet 20 mg PO BID 08/22/24 albuterol sulfate 90 mcg/actuation 2 inh inhalation Q4 H PRN shortness 04/03/25 06/27/25 breath activated powder of breath or wheezing #1 ea inhaler,sensor diazepam 5 mg tablet 5 mg PO QHS 04/03/25 5 ondansetron HCl 4 mg tablet 4 mg PO Q6H PRN 04/03/25 0 06/27/25 bisacodyl 10 mg rectal suppository 10 mg DC DAILY PRN 06/27/25 06/27/25 (Dulcolax (bisacodyl)) cholecalciferol (vitamin D3) 125 5,000 unit PO DAILY 0 06/27/25 06/27/25 mcg (5,000 unit) capsule dextrose 40 % oral gel (Glucose 10 g PO Q15M PRN 06/2706/27/25 Gel) docusate sodium 100 mg capsule 100 mg PO DAILY PRN 03/1606/27/25 glucagon 1 mg injection kit 1 mg IM PRN 06/27/2506/27 simethicone 125 mg capsule (Gas 125 mg PO DAILY PRN 06/27/25 Relief (simethicone)) trazodone 150 mg tablet 150 mg PO QHS 06/27/2506/27 Previous Rx's ?Medication ?Instructions ?Recorded pantoprazole 40 mg tablet,delayed 40 mg PO BID@0730,20 00 #0 tabs 03/15/24 release albuterol sulfate 90 mcg/actuation 2 inh inhalation Q4 H PRN shortness 04/03/25 breath activated powder of breath or wheezing #1 ea inhaler,sensor Allergies Allergy/AdvReac Type Severity Reaction Status Date / Time clindamycin Allergy Unknown Anaphylaxis Verified 06/27/25 07:44 lincomycin Allergy Unknown Anaphylaxis Verified 06/27/25 07:44 Penicillins Allergy Unknown Anaphylaxis Verified 06/27/25 07:44 Fish Allergy Unknown Anaphylaxis Uncoded 06/27/25 07:44 Zyrtec Allergy Unknown Dizziness/L Uncoded 06/27/25 07:44 ighthead General Stated Complaint: Orthopedic CATIE: 3 Review of Systems All systems reviewed & are unremarkable except as noted in HPI and below Cardiovascular Cardiovascular: Denies chest pain Gastrointestinal Gastrointestinal: Denies abdominal pain Exam Const General: cooperative and no acute distress [facility] Head: normocephalic and atraumatic Neck Neck: trachea midline Resp Auscultation: clear to auscultation bilaterally, no rales, no rhonchi and no wheezes Cardio Rate: regular rate and not tachycardic Rhythm: regular rhythm GI Palpation: soft, not firm, no guarding, no masses, not rigid and nontender Skin General skin exam: no rashes or lesions noted Neuro General: patient alert, patient awake and tone normal Extrem General: no edema Left lower extremity: hip/thigh Details: tenderness and abnormal ROM Details: pain with active ROM (any movement); no deformity Other: Distal left lower extremity neuro vascular intact Course Vital Signs Vital signs: Vital Signs Temperature 35.6 C L 06/27/25 07:44 Pulse 60 06/27/25 07:44 Respiratory Rate 18 06/27/25 07:44 Blood Pressure 145/65 H 06/27/25 07:44 Pulse Oximetry 96 06/27/25 07:44 Temperature 35.6 C L 06/27/25 07:44 Pulse 60 06/27/25 07:44 Respiratory Rate 18 06/27/25 07:44 Blood Pressure 145/65 H 06/27/25 07:44 Pulse Oximetry 96 06/27/25 07:44 Oxygen Delivery Method Room Air 06/27/25 07:44 Oxygen Flow Rate 0 06/27/25 07:44 Medical Decision Making ASSESSMENT AND PLAN Assessment: 79-year-old male with left femur fracture after fall from seated position to the ground. No head injury, headache, or blackout. Pain localized to left hip. Patient hemodynamically stable. ED course: X-ray of the left femur and pelvis interpreted by radiology: Intertrochanteric fracture of the left femur. Patient received analgesic by EMS and pain has been well-controlled. Plan: Discuss case with orthopedics and LAWN MOWER OPERATOR. Likely admit to hospitalist service. Consider transfer if complications arise. Preop screening labs sent. Acetaminophen IV given for analgesia. -- I spoke with LAWN MOWER OPERATOR who will evaluate the patient and feels comfortable proceeding with surgery here in [facility] tomorrow. LAWN MOWER OPERATOR to evaluate for potential regional block for pain control. -- I spoke with Dr. Montero who will plan for procedure tomorrow. He recommends oral dose of TXA 1300 mg. -- Case reviewed with Dr. Vital, on-call hospitalist, discussed ED presentation and course, he will admit the patient. This document was written with the assistance of WINDY Floyd. The patient consented to its use. [facility] All Active Problems (Updated 06/27/25 @ 10:12 by Rene Caballero MD) Closed intertrochanteric fracture of left femur (Acute) Anemia due to blood loss (Acute) Depression (Chronic) Advanced care planning/counseling discussion (Acute) Palliative care patient (Acute) CKD (chronic kidney disease) stage 3, GFR 30-59 ml/min (Acute) Frequent falls (Acute) Chronic anticoagulation (Acute) Recurrent gastrointestinal hemorrhage (Acute) Hiatal hernia (Chronic) Gastric ulcer (Acute) CAD (coronary artery disease), [place] coronary artery (Chronic) NSTEMI. Stent placed 01/29/2024 [facility] Acute blood loss anemia (Chronic) Acute upper GI bleed (Acute) Closed hip fracture (Acute) Medical History BPH (benign prostatic hyperplasia) Hyperlipidemia Social History Smoking/Tobacco Use Status: Never Smoking risk assessment performed?: Yes Alcohol Intake: never Drug use: Never Substance use type: does not use Housing: apartment Do you feel safe at home: Yes Do you feel safe in your relationship?: Yes
[2025-06-27 09:39] LABS: Abs Immature Grans 0.09 10^3/uL (0.0-0.06); HCT 39.6 % (40.0-50.0); HGB 12.1 g/dL (13.5-17.5); Immature Grans % 1.1 %; MCH 26.4 pg (27.0-33.0); MCHC 30.6 % (32.0-36.0); MCV 86 fL (80-95); MPV 11.3 fL (8.0-11.0); Platelet Count 250 10^3/uL (130-400); RBC 4.59 10^6/uL (4.36-5.78); RDW 15.9 % (11.8-14.1); RDW-SD 49.8 fL; WBC 7.97 10^3/uL (4.4-10.8)
[2025-06-27 09:59] LABS: ALT 20 U/L (16-63); AST 11 U/L (15-37); Albumin 3.3 g/dL (3.4-5.0); Alkaline Phosphatase 128 U/L (46-116); Anion Gap 7.3 mmol/L (3-11); BUN 47 mg/dL (7-18); Bilirubin, Total 0.3 mg/dL (0.2-1.0); CO2 26.7 mmol/L (21.0-32.0); Calcium 8.8 mg/dL (8.5-10.1); Chloride 109 mmol/L (98-107); Estimated GFR 35.22 (mL/min/1.73m2); Glucose 102 mg/dL (74-106); Potassium 4.3 mmol/L (3.5-5.1); Sodium 143 mmol/L (136-145); Total Protein 6.8 g/dL (6.4-8.2)
--- NOTE | 2025-06-27 10:03 | W.ANESPRE ---
General Info Date of Service Date Performed: 06/27/25 Height: 6 ft 1.5 in Weight: 99.8 kg Body Mass Index (BMI): 28.6 Meds Allergies and Home Medications Allergies Allergy/AdvReac Type Severity Reaction Status Date / Time clindamycin Allergy Unknown Anaphylaxis Verified 06/27/25 07:44 lincomycin Allergy Unknown Anaphylaxis Verified 06/27/25 07:44 Penicillins Allergy Unknown Anaphylaxis Verified 06/27/25 07:44 Fish Allergy Unknown Anaphylaxis Uncoded 06/27/25 07:44 Zyrtec Allergy Unknown Dizziness/L Uncoded 06/27/25 07:44 ighthead Home Medication ?Medication ?Instructions ?Recorded aspirin 81 mg chewable tablet 81 mg PO DAILY 02/19/24 carvedilol 6.25 mg tablet 6.25 mg PO BID 02/19/24 empagliflozin 10 mg tablet 10 mg PO DAILY 02/19/24 finasteride 5 mg tablet 5 mg PO DAILY 02/19/24 magnesium hydroxide 400 mg/5 mL 30 ml PO DAILY PRN 02/19/24 oral suspension (Milk of myTomorrows) prednisolone acetate 1 % eye 1 drp ophthalmic (eye) DAILY 02/19/24 drops,suspension rosuvastatin 20 mg tablet 20 mg PO DAILY 02/19/24 tamsulosin 0.4 mg capsule 0.4 mg PO DAILY 02/19/24 venlafaxine 150 mg 150 mg PO DAILY 02/19/24 capsule,extended release 24 hr venlafaxine 75 mg tablet 75 mg PO DAILY 02/19/24 pantoprazole 40 mg tablet,delayed 40 mg PO BID@0730,2000 #0 tabs 03/15/24 release acetaminophen 325 mg capsule See Rx Instructions PO Q6H PRN 03/21/24 brinzolamide 1 % eye 1 drp ophthalmic (eye) TID 05/07/24 drops,suspension ferrous gluconate 324 mg (38 mg 324 mg PO DAILY 08/22/24 iron) tablet valsartan 40 mg tablet 20 mg PO BID 08/22/24 albuterol sulfate 90 mcg/actuation 2 inh inhalation Q4H PRN shortness 04/03/25 breath activated powder of breath or wheezing #1 ea inhaler,sensor diazepam 5 mg tablet 5 mg PO QHS 04/03/25 ondansetron HCl 4 mg tablet 4 mg PO Q6H PRN 04/03/25 bisacodyl 10 mg rectal suppository 10 mg HI DAILY PRN 06/27/25 (Dulcolax (bisacodyl)) cholecalciferol (vitamin D3) 125 5,000 unit PO DAILY 06/27/25 mcg (5,000 unit) capsule dextrose 40 % oral gel (Glucose 10 g PO Q15M PRN 06/27/25 Gel) docusate sodium 100 mg capsule 100 mg PO DAILY PRN 06/27/25 glucagon 1 mg injection kit 1 mg IM PRN 06/27/25 simethicone 125 mg capsule (Gas 125 mg PO DAILY PRN 06/27/25 Relief (simethicone)) trazodone 150 mg tablet 150 mg PO QHS 06/27/25 Current Visit Medications: Current Medications Generic Name Dose Route Start Last Admin Trade Name Freq PRN Reason Stop Dose Admin IV Miscellaneous Supplies 1 each 06/27/25 09:30 Iv [facility]Emergency Dept IV DIRECTED NANCY Sodium Chloride 0 ml 06/27/25 09:22 Normal Saline Flush 10 Ml Syr IVP PRN PRN Sodium Chloride 0 ml 06/27/25 20:00 Normal Saline Flush 10 Ml Syr IVP BID NANCY Sodium Chloride 0 ml 06/27/25 09:22 Normal Saline 10 Ml Vial IJ DIRECTED PRN PFSH Active Problems Active Problems: Problem Status Onset Code Anemia due to blood loss Acute D50.0 Depression Chronic F32.A Advanced care planning/counseling discussion Acute Z71.89 Palliative care patient Acute Z51.5 CKD (chronic kidney disease) stage 3, GFR 30-59 ml/min Acute N18.30 Frequent falls Acute R29.6 Chronic anticoagulation Acute Z79.01 Recurrent gastrointestinal hemorrhage Acute K92.2 Hiatal hernia Chronic K44.9 Gastric ulcer Acute K25.9 CAD (coronary artery disease), [place] coronary artery Chronic I25.10 Acute blood loss anemia Chronic D62 Acute upper GI bleed Acute K92.2 Closed hip fracture Acute S72.009A Medical History Medical History BPH (benign prostatic hyperplasia) Hyperlipidemia Tobacco Smoking/Tobacco Use Status: Never Alcohol Alcohol Intake: never Substance Use Substance use: Never Substance use type: does not use Vital Signs and Lab Results Vital Signs Most Recent Vital Signs in EMR: Most Recent Vital Signs Temp Pulse Resp BP Pulse Ox 35.6 C L 60 18 145/65 H 96 06/27/25 07:44 06/27/25 07:44 06/27/25 07:44 06/27/25 07:44 06/27/25 07:44 Lab Results 06/27/25 08:02 06/27/25 08:02 Blood Type / Crossmatch: Antibody Screen NEGATIVE Today Complete Blood Count: WBC, (4.4-10.8) 7.97 10^3/uL Today, 08:02 RBC, (4.36-5.78) 4.59 10^6/uL Today, 08:02 Hgb, (13.5-17.5) 12.1 g/dL L Today, 08:02 Hct, (40.0-50.0) 39.6 % L Today, 08:02 Plt Count, (130-400) 250 10^3/uL Today, 08:02 Complete Metabolic Panel: Sodium, (136-145) 143 mmol/L Today, 08:02 Potassium, (3.5-5.1) 4.3 mmol/L Today, 08:02 Chloride, (98-107) 109 mmol/L H Today, 08:02 Carbon Dioxide, (21.0-32.0) 26.7 mmol/L Today, 08:02 BUN, (7-18) 47 mg/dL H Today, 08:02 Creatinine, (0.70-1.30) 1.9 mg/dL H Today, 08:02 Est GFR (CKD-EPI 2020), (mL/min/1.73m2) 35.22 Today, 08:02 Calcium, (8.5-10.1) 8.8 mg/dL Today, 08:02 Albumin, (3.4-5.0) 3.3 g/dL L Today, 08:02 Glucose, (74-106) 102 mg/dL Today, 08:02 Liver Function Panel: ALT, (16-63) 20 U/L Today, 08:02 AST, (15-37) 11 U/L L Today, 08:02 Imaging and Studies Imaging and Studies Study information below may be from another EMR and interpreted by another provider. Please see original notes in EMR for more complete details. EKG Summary: 03/09/24 Conclusion sinus 80 no stemi I have reviewed and I agree with the emergency room physician's ECG interpretation. Echocardiogram Summary: 02/20/24: EF 60%, Valves normal. Carotid Artery Summary:: 02/13/24:3 VD, 80% Mid LAD, LCx 90% without stent, RCA mid vessel 90% without stent. CABG would be needed but he was denied this due to age and frailty. he will continue Plavix 75mg. Anesthesia Assessment and Plan Anesthesia History Personal History: No History of Anesthesia Complications Family History: No Family History of Anesthesia Complications Exercise Tolerance Exercise Tolerance: Metabolic Equivalents>4 Pertinent Negatives Pertinent Negatives: No Symptoms of GERD Cardiac & Pulmonary Exam Cardiac Exam: Normal S1/S2 Heart Sounds Pulmonary Exam: Clear Bilateral Breath Sounds Implantable Cardiac Device Does patient have a Pacemaker or an ICD?: No Airway Exam Known Difficult Airway: No Mallampati Class: 2 Mouth Opening: Normal (> 3cm) Thyromental Distance: Greater than 3 cm Neck Range of Motion: Full ROM Neck Circumference: Normal Teeth Condition: Generalized Poor Dentition ASA Classification ASA Score: ASA 4 Emergency Case?: No NPO Status NPO Status: NPO Clears >2 hours, Solids >8 hours Anesthesia Plan Resuscitation Status: Full Code Anesthesia Technique: General Anesthesia Airway Planned: Endotracheal Tube Monitors Used: Standard Monitors and SedLine Preoperative Comments:: Discussed cardiac risk given current ongoing significant vessel occlusion / disease. Pt. understands risk.
--- NOTE | 2025-06-27 10:13 | W.PM.HP.N ---
Date of service: 06/27/25 Time of Service: 10:16 Assessment and Plan Assessment and plan (1) Closed intertrochanteric fracture of left femur: Status: Acute Assessment and plan: - As seen on x-ray - Orthopedic surgery has seen patient, patient taken to operating room the afternoon of 06/27/2025 - Status post 1300 mg of TXA - Nerve block given by anesthesia - Will order 1 mg IV morphine every 4 hours as needed for breakthrough pain - Holding aspirin for surgery (2) Depression: Status: Chronic Assessment and plan: - Continue home venlafaxine (3) CAD (coronary artery disease), [place] coronary artery: Status: Chronic Assessment and plan: - Holding home aspirin prior to surgery as noted above - Continue home rosuvastatin, carvedilol 6.25 mg twice daily (4) CKD (chronic kidney disease) stage 3, GFR 30-59 ml/min: Status: Acute Assessment and plan: - At baseline (1.9-2.4) History of Present Illness History of Present Illness Chief Complaint: fall, left hip pain Narrative: 79-year-old male with a past medical history of coronary artery disease, GERD, depression lives in a detention presents after experiencing a fall. Patient states he fell when he was changing his pants, landing on his left hip. He denied hitting his head, any lightheadedness or dizziness. In the emergency department the patient was noted as having normal vital signs and normal physical exam with the exception of significant tenderness of the left hip. X-ray was performed and showed intertrochanteric fracture of the left femur. While in the emergency department orthopedic surgery was consulted and stated they would perform surgery tomorrow and to give a dose of TXA 1300 mg. EXTRUDER OPERATOR was also consulted and gave patient nerve block for the pain. At which time emergency room provider paged hospitalist for admission for patient with left hip fracture. Review of Systems All systems reviewed & are unremarkable except as noted in HPI and below PFSH All Active Problems (Updated 06/27/25 @ 10:12 by Rene Caballero MD) Closed intertrochanteric fracture of left femur (Acute) Anemia due to blood loss (Acute) Depression (Chronic) Advanced care planning/counseling discussion (Acute) Palliative care patient (Acute) CKD (chronic kidney disease) stage 3, GFR 30-59 ml/min (Acute) Frequent falls (Acute) Chronic anticoagulation (Acute) Recurrent gastrointestinal hemorrhage (Acute) Hiatal hernia (Chronic) Gastric ulcer (Acute) CAD (coronary artery disease), [place] coronary artery (Chronic) NSTEMI. Stent placed 01/29/2024 [facility] Acute blood loss anemia (Chronic) Acute upper GI bleed (Acute) Closed hip fracture (Acute) Medical History BPH (benign prostatic hyperplasia) Hyperlipidemia Social History Smoking/Tobacco Use Status: Never Smoking risk assessment performed?: Yes Alcohol Intake: never Drug use: Never Substance use type: does not use Housing: detention Do you feel safe at home: Yes Do you feel safe in your relationship?: Yes Meds Allergies and Home Medications Allergies Allergy/AdvReac Type Severity Reaction Status Date / Time clindamycin Allergy Unknown Anaphylaxis Verified 06/27/25 07:44 lincomycin Allergy Unknown Anaphylaxis Verified 06/27/25 07:44 Penicillins Allergy Unknown Anaphylaxis Verified 06/27/25 07:44 Fish Allergy Unknown Anaphylaxis Uncoded 06/27/25 07:44 Zyrtec Allergy Unknown Dizziness/L Uncoded 06/27/25 07:44 ighthead Home Medications ?Medication ?Instructions ?Recorded ?Confirmed ?Type aspirin 81 mg chewable tablet 81 mg PO DAILY 02/19/24 06/27/25 History carvedilol 6.25 mg tablet 6.25 mg PO BID 02/19/24 06/27/25 History empagliflozin 10 mg tablet 10 mg PO DAILY 02/19/24 06/27/25 History finasteride 5 mg tablet 5 mg PO DAILY 02/19/24 06/27/25 History magnesium hydroxide 400 mg/5 mL 30 ml PO DAILY PRN 02/19/24 06/27/25 History oral suspension (Milk of Magnesia) prednisolone acetate 1 % eye 1 drp ophthalmic (eye) DAILY 02/19/24 06/27/25 History drops,suspension rosuvastatin 20 mg tablet 20 mg PO DAILY 02/19/24 06/27/25 History tamsulosin 0.4 mg capsule 0.4 mg PO DAILY 02/19/24 06/27/25 History venlafaxine 150 mg 150 mg PO DAILY 02/19/24 06/27/25 History capsule,extended release 24 hr venlafaxine 75 mg tablet 75 mg PO DAILY 02/19/24 06/27/25 History pantoprazole 40 mg tablet,delayed 40 mg PO BID@0730,2000 #0 tabs 03/15/24 06/27/25 Rx release acetaminophen 325 mg capsule See Rx Instructions PO Q6H PRN 03/21/24 06/27/25 History brinzolamide 1 % eye 1 drp ophthalmic (eye) TID 05/07/24 06/27/25 History drops,suspension ferrous gluconate 324 mg (38 mg 324 mg PO DAILY 08/22/24 06/27/25 History iron) tablet valsartan 40 mg tablet 20 mg PO BID 08/22/24 06/27/25 History albuterol sulfate 90 mcg/actuation 2 inh inhalation Q4H PRN shortness 04/03/25 06/27/25 Rx breath activated powder of breath or wheezing #1 ea inhaler,sensor diazepam 5 mg tablet 5 mg PO QHS 04/03/25 06/27/25 History ondansetron HCl 4 mg tablet 4 mg PO Q6H PRN 04/03/25 06/27/25 History bisacodyl 10 mg rectal suppository 10 mg MA DAILY PRN 06/27/25 06/27/25 History (Dulcolax (bisacodyl)) cholecalciferol (vitamin D3) 125 5,000 unit PO DAILY 06/27/25 06/27/25 History mcg (5,000 unit) capsule dextrose 40 % oral gel (Glucose 10 g PO Q15M PRN 06/27/25 06/27/25 History Gel) docusate sodium 100 mg capsule 100 mg PO DAILY PRN 06/27/25 06/27/25 History glucagon 1 mg injection kit 1 mg IM PRN 06/27/25 06/27/25 History simethicone 125 mg capsule (Gas 125 mg PO DAILY PRN 06/27/25 06/27/25 History Relief (simethicone)) trazodone 150 mg tablet 150 mg PO QHS 06/27/25 06/27/25 History Exam Narrative Exam Narrative: Well-appearing older gentleman laying in bed in no acute distress, ANO x 4, heart regular rhythm, lungs good auscultation bilaterally, abdomen soft, nontender, nondistended, decreased range of motion in the left lower extremity at the hip secondary to pain Results Labs 06/27/25 08:02 06/27/25 08:02 Labs: Laboratory Results - last 24 hr 06/27/25 08:02 WBC 7.97 RBC 4.59 Hgb 12.1 L Hct 39.6 L MCV 86 MCH 26.4 L MCHC 30.6 L RDW 15.9 H Plt Count 250 MPV 11.3 H Immature Gran % 1.1 Neutrophils % 68.4 Lymphocytes % 18.1 Monocytes % 8.0 Eosinophils % 3.4 Basophils % 1.0 Nucleated RBC % 0.0 Absolute Neutrophils 5.45 Absolute Lymphocytes 1.44 Absolute Monocytes 0.64 Absolute Eosinophils 0.27 Absolute Basophils 0.08 Sodium 143 Potassium 4.3 Chloride 109 H Carbon Dioxide 26.7 Anion Gap 7.3 BUN 47 H Creatinine 1.9 H Est GFR (CKD-EPI 2020) 35.22 Glucose 102 Calcium 8.8 Total Bilirubin 0.3 AST 11 L ALT 20 Alkaline Phosphatase 128 H Total Protein 6.8 Albumin 3.3 L Last Vital Signs Temp 96.1 F L 06/27/25 07:44 Pulse 60 06/27/25 07:44 Resp 18 06/27/25 07:44 BP 145/65 H 06/27/25 07:44 Pulse Ox 96 06/27/25 07:44 Time Spent Time spent with Patient: >75 minutes Time was spent: preparing to see the patient(eg.review tests), obtaining and/or reviewing separately otained hiistory, ordering medications,tests, procedures, referring, communicating with other health child care group leader, indepentently interpreting results, counseling the patient and care coordination
--- NOTE | 2025-06-27 10:48 | W.ANESNERVE ---
Nerve Block Single Injection Procedure Date and Time Date Performed: 06/27/25 Procedure Start: 10:40 Location Where Procedure Performed Procedure Location: Emergency Department Reason Performed: Acute Pain Management Pain Diagnosis: Hip Pain Requesting Provider: Rene Caballero Timeout Performed Timeout Performed: Yes Monitoring Used ECG, Blood Pressure, SpO2 and See EMR for corresponding vital signs Sterility Sterility: Hand Hygiene, Surgical Cap, Surgical Mask, Sterile Gloves and Chlorhexidine Sedation Given During Procedure Sedation Given (Indicate Dose Given): No Sedation given Patient Mental Status Patient Mental Status: Awake Nerve Block 1st Nerve Block: Laterality: Left Block Type: Femoral Ultrasound Image Saved?: Yes Needle / Catheter Used: 100mm SonoPlex II Local Anesthetic Bolus (Indicate Dose Given): Lidocaine used for local infiltration of skin, Bupivacaine 0.375% Dose:: 16.5ml and Exparel Dose:: 8.5ml Additives (Indicate Dose Given): None Ultrasound: Sterile probe cover and gel used Nerve Stimulator: Not Used Paresthesia: None Procedure Tolerated: No Complications and Patient tolerated well Procedure Outcome: Successful Performed By: Dian Mcgowan Supervised By: Jazmyn Harmon 2nd Nerve Block: Laterality: Left Block Type: Fascia Iliaca Ultrasound Image Saved?: Yes Needle / Catheter Used: 100mm SonoPlex II Local Anesthetic Bolus (Indicate Dose Given): Lidocaine used for local infiltration of skin, Bupivacaine 0.375% Dose:: 3.5ml and Exparel Dose:: 1.5ml Additives (Indicate Dose Given): None Ultrasound: Sterile probe cover and gel used Nerve Stimulator: Not Used Paresthesia: None Procedure Tolerated: No Complications and Patient tolerated well Procedure Outcome: Successful Performed By: Dian Mcgowan Supervised By: Jazmyn Harmon
[2025-06-27] MEDS: Tranexamic Acid 650 MG TAB 1300 MG PO (10:49)
--- NOTE | 2025-06-27 10:49 | W.ORTHOCONSU ---
Date of service: 06/27/25 Time of Service: 14:15 Assessment and Plan Assessment and plan (1) Closed intertrochanteric fracture of left femur: Status: Acute Assessment and plan: 79-year-old male with Left hip intertrochanteric fracture See medical hospitalist and palliative care notes for details on declining status over the past 1.5 years after right hip fracture treated at [facility] with a cemented hip hemiarthroplasty. Additional fall at rehab facility this morning at rehab facility with isolated left hip pain discomfort. No other complaints. Pleasant and conversive in hospital bed. Moving bilateral upper extremities, right lower extremity, and distally bilateral lower extremities without issue. Isolated left hip discomfort. Prior limited ambulator, declining over the past year. Heightened risks due to significant medical comorbidities, poor functional status, and permanent rehab resident. Still, left hip surgery can be seen as palliative to reduce pain and discomfort, allow comfortable positioning, skin care, and potential lateral return to ambulatory function. Reviewed similarities and differences this hip fracture and surgery to the other side, but not clear he had a good understanding of what was done on the other side. Decision to proceed with surgery today left hip intramedullary nailing The risks, benefits, and alternatives were thoroughly discussed. Patient was counseled regarding pain management, expected postoperative course, and recovery timeline. All questions were answered. Informed consent was obtained. Patient agrees and understands the treatment plan [facility] All Active Problems (Updated 06/27/25 @ 10:12 by Rene Caballero MD) Closed intertrochanteric fracture of left femur (Acute) Anemia due to blood loss (Acute) Depression (Chronic) Advanced care planning/counseling discussion (Acute) Palliative care patient (Acute) CKD (chronic kidney disease) stage 3, GFR 30-59 ml/min (Acute) Frequent falls (Acute) Chronic anticoagulation (Acute) Recurrent gastrointestinal hemorrhage (Acute) Hiatal hernia (Chronic) Gastric ulcer (Acute) CAD (coronary artery disease), [place] coronary artery (Chronic) NSTEMI. Stent placed 01/29/2024 [facility] Acute blood loss anemia (Chronic) Acute upper GI bleed (Acute) Closed hip fracture (Acute) Medical History BPH (benign prostatic hyperplasia) Hyperlipidemia Social History Smoking/Tobacco Use Status: Never Smoking risk assessment performed?: Yes Alcohol Intake: never Drug use: Never Substance use type: does not use Housing: [facility] Do you feel safe at home: Yes Do you feel safe in your relationship?: Yes Results Last Vital Signs Temp 96.1 F L 06/27/25 07:44 Pulse 60 06/27/25 07:44 Resp 18 06/27/25 07:44 BP 145/65 H 06/27/25 07:44 Pulse Ox 96 06/27/25 07:44 Labs 06/27/25 08:02 06/27/25 08:02 Labs: Laboratory Results - last 24 hr 06/27/25 08:02 WBC 7.97 RBC 4.59 Hgb 12.1 L Hct 39.6 L MCV 86 MCH 26.4 L MCHC 30.6 L RDW 15.9 H Plt Count 250 MPV 11.3 H Immature Gran % 1.1 Neutrophils % 68.4 Lymphocytes % 18.1 Monocytes % 8.0 Eosinophils % 3.4 Basophils % 1.0 Nucleated RBC % 0.0 Absolute Neutrophils 5.45 Absolute Lymphocytes 1.44 Absolute Monocytes 0.64 Absolute Eosinophils 0.27 Absolute Basophils 0.08 Sodium 143 Potassium 4.3 Chloride 109 H Carbon Dioxide 26.7 Anion Gap 7.3 BUN 47 H Creatinine 1.9 H Est GFR (CKD-EPI 2020) 35.22 Glucose 102 Calcium 8.8 Total Bilirubin 0.3 AST 11 L ALT 20 Alkaline Phosphatase 128 H Total Protein 6.8 Albumin 3.3 L
--- NOTE | 2025-06-27 11:29 | W.PC.ACHO ---
Registration Status: REG ER Primary Language: Preferred Language: ED Information & Data Chief Complaint Orthopedic 06/27/25 11:22 Chief Complaint Orthopedic 06/27/25 09:22 Triage Note BIBA Left hip pain Fall 06/27/25 07:44 while transfering self in bathroom 75mg Fent IM given by ems Medical / Surgical History (Last Reviewed 06/27/25 @ 09:22 by Rene Caballero MD) BPH (benign prostatic hyperplasia) Hyperlipidemia Most Recent Vital Signs Temperature 35.6 C L 06/27/25 07:44 Pulse 66 06/27/25 10:46 Pulse 64 06/27/25 10:46 Respiratory Rate 15 06/27/25 10:46 Blood Pressure 177/74 H 06/27/25 10:46 Blood Pressure Mean 105 06/27/25 10:46 Pulse Oximetry 98 06/27/25 10:46 Oxygen Delivery Method Room Air 06/27/25 07:44 Oxygen Flow Rate 0 06/27/25 07:44 Allergies clindamycin Allergy (Unknown, Verified 06/27/25 07:44) Anaphylaxis lincomycin Allergy (Unknown, Verified 06/27/25 07:44) Anaphylaxis Penicillins Allergy (Unknown, Verified 06/27/25 07:44) Anaphylaxis Fish Allergy (Unknown, Uncoded 06/27/25 07:44) Anaphylaxis Zyrtec Allergy (Unknown, Uncoded 06/27/25 07:44) Dizziness/[place] Precautions Isolation Standard precaution 06/27/25 11:22 IV IV Catheter Type [Left Saline Lock Antecubital] IV Catheter Gauge [Left 20 Antecubital] Diagnostics 06/27/25 06/27/25 Range/Units 09:41 08:02 WBC 7.97 (4.4-10.8) 10^3/uL RBC 4.59 (4.36-5.78) 10^6/uL Hgb 12.1 L (13.5-17.5) g/dL Hct 39.6 L (40.0-50.0) % MCV 86 (80-95) fL MCH 26.4 L (27.0-33.0) pg MCHC 30.6 L (32.0-36.0) % RDW 15.9 H (11.8-14.1) % Plt Count 250 (130-400) 10^3/uL MPV 11.3 H (8.0-11.0) fL Immature Gran % 1.1 % Neutrophils % 68.4 % Lymphocytes % 18.1 % Monocytes % 8.0 % Eosinophils % 3.4 % Basophils % 1.0 % Nucleated RBC % 0.0 (0.0-0.3) % Absolute Neutrophils 5.45 (1.2-6.7) 10^3/uL Absolute Lymphocytes 1.44 (1.2-3.4) 10^3/uL Absolute Monocytes 0.64 (0.1-0.8) 10^3/uL Absolute Eosinophils 0.27 (0.0-0.7) 10^3/uL Absolute Basophils 0.08 (0.0-0.2) 10^3/uL Sodium 143 (136-145) mmol/L Potassium 4.3 (3.5-5.1) mmol/L Chloride 109 H (98-107) mmol/L Carbon Dioxide 26.7 (21.0-32.0) mmol/L Anion Gap 7.3 (3-11) mmol/L BUN 47 H (7-18) mg/dL Creatinine 1.9 H (0.70-1.30) mg/dL Est GFR (CKD-EPI 2020) 35.22 (mL/min/1.73m2) Glucose 102 (74-106) mg/dL Calcium 8.8 (8.5-10.1) mg/dL Total Bilirubin 0.3 (0.2-1.0) mg/dL AST 11 L (15-37) U/L ALT 20 (16-63) U/L Alkaline Phosphatase 128 H (46-116) U/L Total Protein 6.8 (6.4-8.2) g/dL Albumin 3.3 L (3.4-5.0) g/dL ABO/Rh Pending Antibody Screen Pending Intake and Output - 24 Hour Total 06/27/25 07:26 thru 06/27/25 10:05 Intake Total 10 Balance 10 Weight 99.8 kg Intake: IV 10 Falls Risk Assessment History of Falls Admit Due to Fall 06/27/25 08:10 Contributing Factors Impairments 06/27/25 08:10 Tubes/Lines W/no contributing factors 06/27/25 08:10 Gait Evaluation W/no contributing factors 06/27/25 08:10 Cognition No cognitive impairment 06/27/25 08:10 Fall Total Score 48 09/05/25 08:10 Level of Risk Moderate Risk 06/27/25 08:10 Problems (Last Reviewed 06/27/25 @ 09:22 by Rene Caballero MD) Closed intertrochanteric fracture of left femur (Acute) Depression (Chronic) CKD (chronic kidney disease) stage 3, GFR 30-59 ml/min (Acute) CAD (coronary artery disease), [place] coronary artery (Chronic) v v v v v v v v v Sending and/or Receiving Nurses: Please use comment section below to note any information pertinent to the patient hand-off not included above. Information / Comments: Report received from: Naida [facility] ED at 11:27
--- NOTE | 2025-06-27 14:46 | ROE_ITS ---
Operative Note Operative Note PRE-OP DIAGNOSIS: Left hip intertrochanteric fracture POST-OP DIAGNOSIS: same PROCEDURE: Left hip intramedullary nail, CPT #95221 SURGEON: Vito Santiago DISTRIBUTION CLERK: None None ANESTHESIA TYPE: Local By Surgeon and General LMA/ETT Refer to Anesthesia Record ESTIMATED BLOOD LOSS: 30 COMPLICATIONS: None Patient was transported to: PACU Patient's condition: stable Implants: Synthes TFNA [id number] 130 deg, 110 mm TFNA helical blade, 40 mm 5.0mm distal locking screw Indications: Please see medical record for details Findings: Extremely poor hip bone quality Procedure Description: In the operating room, general anesthesia was induced. The patient was transferred and positioned supine on the fracture table. All bony prominences were well padded. Pre-operative antibiotics were administered. C-arm fluoroscopy was used to confirm appropriate provisional fracture reduction with traction and internal rotation. The correct patient, procedure, and side of the procedure were all verified prior to incision. The hip was prepped and draped in the usual sterile fashion. Local anesthetic with epinephrine was infiltrated about the planned start point as well as later about the lateral entry site for cephalomedullary and distal locking screws. C- arm fluoroscopy was used to locate the appropriate start point for the guide wire on the tip of the greater trochanter. This guide wire was advanced centrally down the proximal femur to the level of the lessor trochanter. Lateral images confirmed appropriate start point on the trochanter. Next the incision was extended about the guide wire to accommodate the nailing jig and this incision was carried down through the fascia and spread apart for ease of future instrument passage. The entry reamer was inserted along with the soft tissue protection tube and this reamer was used to open the proximal femur. The entry reamer, soft tissue protector, and guidewire were removed from the proximal femur. The appropriately selected nail was assembled on the back table to the jig and tested to ensure proper passage of the cephalomedullary drill. This implant was manually inserted into the proximal femur and advanced to the appropriate level for cephalomedullary fixation. Another incision was made laterally to accommodate the cephalomedullary aiming tube and trochar, which were advanced down to bone. The guide wire was then advanced into the femoral neck and adjusted on AP and lateral fluoroscopy until it was placed near subchondral bone in the center-center position in the femoral head. The depth gauge was used to measure the helical blade length accommodating for depth of guidewire insertion. Next, the drills were used to open the lateral cortex, drill over the wire, and the helical blade was advanced to the appropriate depth by gentle mallet blows. The set screw was engaged and backed off 180 degrees to allow for rotationally- controlled sliding and compression. Traction was released, and the fracture was compressed appropriately via the buttress and compression nut on the jig. The cephalomedullary aiming guide was removed. The distal locking screw guide was inserted through another small incision down the bone. The drill was used to drill for this static locking screw and measure the length. The appropriate length screw was then inserted bicortically. The jig was removed from the nail. Final AP and lateral fluoroscopic images were taken and confirmed appropriate fracture reduction and implant placement. All wounds were copiously irrigated. Subcutaneous tissue was closed using 2-0 monocryl in a buried interrupted fashion. Skin glue was applied to all incisions. Incisions were covered with Mepilex Band-Aids. The patient awoke from anesthesia without complication and was transferred to the recovery room in stable condition. Date of Procedure: 06/27/25
[2025-06-27] MEDS: Lactated Ringers 1,000 ML 30 ML IV (15:05)
[2025-06-27] MEDS: ceFAZolin 2 GM/50 ML BAG 100 GM (15:10)
[2025-06-27] MEDS: TRANEXAMIC ACID/SOD. CHL. 1,000 MG/100 ML BAG 600 MG (15:20)
[2025-06-27] MEDS: Bupivacaine 0.25% Pres-Free W/EPI 30 ML VIAL (15:56)
--- NOTE | 2025-06-27 16:25 | DI.RAD_ITS ---
Exam(s) XR HIP LT IN OR EXAM: XR HIP LT IN OR CLINICAL HISTORY: Closed intertrochanteric fracture of left femur TECHNIQUE: 2D and realtime digital imaging was performed. CONTRAST MATERIAL: Refer to procedure report. COMPARISON: CR XR PELVIS AP from 06/27/2025 FINDINGS: Fluoroscopy was provided for Dr. Santiago during the performance of a open reduction and internal fixation of the intertrochanteric fracture of the left femur.. Please refer to the procedure report for complete details. Ka,r=11.3 mGy IMPRESSION: RADIATION DOSE DELIVERED: 0.0 0.0 0
--- NOTE | 2025-06-27 16:46 | W.PM.PROGNOT ---
Date of Service Date of service: 06/27/25 Time of Service: 16:46 Assessment and Plan Assessment and plan (1) Closed intertrochanteric fracture of left femur: Status: Acute Assessment and plan: 79-year-old male postop day #0 status post left hip intramedullary nailing Waking up in PACU, relatively comfortable, left lower extremity distal pulse 1+, good rotation alignment, no other deformities or bruising noted on extremities. Orders placed- Complete 24 hours postoperative antibiotics Physical therapy: Weightbearing as tolerated with assist device Per hospitalist- Pain control-Multimodal May start chemical DVT prophylaxis tomorrow morning assuming hemodynamically stable: Lovenox as inpatient, ASA 81mg BID as outpatient x30 days, but depends on goals of care and should involve discussion with patient, rehab facility, and he remains a high fall risk with recent history of significant GI bleed. Continue mechanical DVT prophylaxis with SCDs and/or MYRTLE hose Discharge when medically appropriate My office messaged- Follow-up with Dr. Santiago outpatient [facility] in about 2-3 weeks DISCHARGE INSTRUCTIONS (please update & copy into discharge document) Surgery: Left hip IMN Activity: Weightbearing as tolerated with walker. Dressings: Leave dressings in place for about 10 days. Keep clean and dry at all times. May then remove and leave incisions with skin glue open to air or cover with wide Band-Aids until fully healed. Follow-up: About 2-[address] Santiago Objective Last Vital Signs Temp 97.5 F L 06/27/25 11:50 Pulse 69 06/27/25 11:50 Resp 18 06/27/25 13:12 BP 143/67 H 06/27/25 11:50 Pulse Ox 96 06/27/25 11:50 Laboratory Results - last 24 hr 06/27/25 06/27/25 08:02 09:41 WBC 7.97 RBC 4.59 Hgb 12.1 L Hct 39.6 L MCV 86 MCH 26.4 L MCHC 30.6 L RDW 15.9 H Plt Count 250 MPV 11.3 H Immature Gran % 1.1 Neutrophils % 68.4 Lymphocytes % 18.1 Monocytes % 8.0 Eosinophils % 3.4 Basophils % 1.0 Nucleated RBC % 0.0 Absolute Neutrophils 5.45 Absolute Lymphocytes 1.44 Absolute Monocytes 0.64 Absolute Eosinophils 0.27 Absolute Basophils 0.08 Sodium 143 Potassium 4.3 Chloride 109 H Carbon Dioxide 26.7 Anion Gap 7.3 BUN 47 H Creatinine 1.9 H Est GFR (CKD-EPI 2020) 35.22 Glucose 102 Calcium 8.8 Total Bilirubin 0.3 AST 11 L ALT 20 Alkaline Phosphatase 128 H Total Protein 6.8 Albumin 3.3 L ABO/Rh A Negative Antibody Screen NEGATIVE Time Spent with Patient Time Spent with Patient: <25 minutes Time was spent: care coordination
--- NOTE | 2025-06-27 17:04 | W.ANESPOSTOP ---
Postoperative Evaluation Date, Time and Location Date Performed: 06/27/25 Time Performed: 17:04 Patient Location: PACU Vital Signs Most Recent Imported Vital Signs: Most Recent Vital Signs Temp Pulse Resp BP Pulse Ox 36.4 C L 70 9 L 141/66 H 100 06/27/25 16:48 06/27/25 17:01 06/27/25 17:01 06/27/25 17:00 06/27/25 17:01 Pain Score Most Recent Pain Score: Most Recent Pain Score Pain Level 2 06/27/25 16:53 Assessment Mental Status: Awake (Alert & Oriented to Patient Baseline) Airway and Respiratory Function: Patent airway with normal (patient baseline) respiratory exam Cardiovascular Function: Hemodynamically Stable Hydration Status: Adequately Hydrated Nausea & Vomiting: No Nausea or Vomiting Pain: Pain is tolerable per patient Peripheral Nerve Block: Patient did not receive a nerve block Postoperative Comments:: Pt. Has minimal oxygen requirement. No complaints of SOB/CP or anything else and is comfortable. Will order oxygen until effects of anesthesia have worn off.
[2025-06-27] MEDS: ceFAZolin 1 GM/50 ML BAG IVPB (18:15)
[2025-06-27] MEDS: Valsartan 40 MG TAB 20 MG PO (19:45)
[2025-06-27] MEDS: Pantoprazole 40 MG TABCR PO (19:46)
[2025-06-27] MEDS: Carvedilol 6.25 MG TAB PO (19:46)
[2025-06-27] MEDS: diazePAM 5 MG TAB PO (19:46)
[2025-06-27] MEDS: Normal Saline Flush 10 ML SYR IVP (19:51)
[2025-06-28 00:59] VITALS: BP 131/81; PULSE 72; RESP 18; TEMP 36.9; O2SAT 95
[2025-06-28] MEDS: ceFAZolin 1 GM/50 ML BAG IVPB ×2 (01:28→10:18)
[2025-06-28 07:02] LABS: HCT 34.0 % (40.0-50.0); HGB 11.0 g/dL (13.5-17.5); MCH 27.4 pg (27.0-33.0); MCHC 32.4 % (32.0-36.0); MCV 85 fL (80-95); RBC 4.01 10^6/uL (4.36-5.78); RDW 15.5 % (11.8-14.1); RDW-SD 47.7 fL; WBC 13.22 10^3/uL (4.4-10.8)
[2025-06-28 07:26] LABS: Anion Gap 12.0 mmol/L (3-11); BUN 46 mg/dL (7-18); CO2 20.0 mmol/L (21.0-32.0); Calcium 8.2 mg/dL (8.5-10.1); Chloride 106 mmol/L (98-107); Estimated GFR 29.54 (mL/min/1.73m2); Glucose 115 mg/dL (74-106); Magnesium 2.3 mg/dL (1.8-2.4); Potassium 4.6 mmol/L (3.5-5.1); Sodium 138 mmol/L (136-145)
[2025-06-28] MEDS: Finasteride 5 MG TAB PO (07:55)
[2025-06-28] MEDS: Carvedilol 6.25 MG TAB PO ×2 (07:55→20:30)
[2025-06-28] MEDS: Acetaminophen 325 MG TAB 650 MG PO (07:55)
[2025-06-28] MEDS: Venlafaxine 37.5 MG CAPCR 75 MG PO (07:55)
[2025-06-28] MEDS: Pantoprazole 40 MG TABCR PO ×2 (07:56→20:29)
[2025-06-28] MEDS: Venlafaxine 150 MG CAPCR PO (07:56)
[2025-06-28] MEDS: Rosuvastatin 20 MG TAB PO (07:56)
[2025-06-28] MEDS: Tamsulosin 0.4 MG CAPCR PO (07:56)
[2025-06-28] MEDS: Valsartan 40 MG TAB 20 MG PO ×2 (07:56→20:30)
[2025-06-28] MEDS: Normal Saline Flush 10 ML SYR IVP ×2 (08:40→20:31)
--- NOTE | 2025-06-28 09:17 | W.PM.PROGNOT ---
Date of Service Date of service: 06/28/25 Time of Service: 09:17 Assessment and Plan Assessment and plan (1) Closed intertrochanteric fracture of left femur: Status: Acute (2) Frequent falls: Status: Acute (3) Osteoporosis: Status: Chronic Assessment and plan: Humble is an 79-year-old male who has had multiple falls. He is a long-term resident and rehabilitation. He is now postop day #1 status post interventional nail fixation of a left intertrochanteric hip fracture. Overall I think he is doing well. He has received no pain medication. He did have a painful turn and reposition overnight and I think it is important that we do medicate him for some pain as to be expected. I would encourage him to get up with physical therapy at least to the edge of the bed in a sitting position. We will premedicate him with tramadol. I did discuss this with Dr. Vital from the medicine team. Additionally, he has now had a proximal numerous fracture and bilateral proximal femur fractures from falls in the last year and a half. Therefore, he meets a diagnosis of osteoporosis simply from this ground-level fall on 2 separate occasions. I think it is important we check some basic bone labs including vitamin D. However, I would recommend, if not contraindicated, zoledronic acid or denosumab to assist in his bone health and prevent future fracture and decrease morbidity and mortality. He is weightbearing as tolerated with assistive devices. Dressing to stay intact for 2 weeks. No restrictions on positioning or movement. Subjective Subjective Interval history since last seen: POD#1 s/p IMN fixation of left intertrochanteric femur fracture. No acute events or issues overnight except for pain with turning. He has not received any pain medication. No complaints of numbness or tingling. Exam Narrative Exam Narrative: Resting in the bed. No acute distress. Alert and cooperative. Evaluation the left leg shows clean dry and intact dressings. Minimal swelling. No ecchymosis. When he relaxes there is no pain to internal and external rotation of the left hip. He is able demonstrate active ankle extension, flexion, great toe extension, great toe flexion. Objective Last Vital Signs Temp 36.9 C 06/28/25 00:59 Pulse 72 06/28/25 00:59 Resp 18 06/28/25 00:59 BP 131/81 06/28/25 00:59 Pulse Ox 95 06/28/25 00:59 Laboratory Results - last 24 hr 06/27/25 06/27/25 06/28/25 08:02 09:41 06:25 WBC 7.97 RBC 4.59 Hgb 12.1 L Hct 39.6 L MCV 86 MCH 26.4 L MCHC 30.6 L RDW 15.9 H Plt Count 250 MPV 11.3 H Immature Gran % 1.1 Neutrophils % 68.4 Lymphocytes % 18.1 Monocytes % 8.0 Eosinophils % 3.4 Basophils % 1.0 Nucleated RBC % 0.0 Absolute Neutrophils 5.45 Absolute Lymphocytes 1.44 Absolute Monocytes 0.64 Absolute Eosinophils 0.27 Absolute Basophils 0.08 Sodium 143 138 Potassium 4.3 4.6 Chloride 109 H 106 Carbon Dioxide 26.7 20.0 L Anion Gap 7.3 12.0 H BUN 47 H 46 H Creatinine 1.9 H 2.2 H Est GFR (CKD-EPI 2020) 35.22 29.54 Glucose 102 115 H Calcium 8.8 8.2 L Magnesium 2.3 Total Bilirubin 0.3 AST 11 L ALT 20 Alkaline Phosphatase 128 H Total Protein 6.8 Albumin 3.3 L ABO/Rh A Negative Antibody Screen NEGATIVE 06/28/25 06:40 WBC 13.22 H RBC 4.01 L Hgb 11.0 L Hct 34.0 L MCV 85 MCH 27.4 MCHC 32.4 RDW 15.5 H Plt Count MPV Immature Gran % Neutrophils % Lymphocytes % Monocytes % Eosinophils % Basophils % Nucleated RBC % Absolute Neutrophils Absolute Lymphocytes Absolute Monocytes Absolute Eosinophils Absolute Basophils Sodium Potassium Chloride Carbon Dioxide Anion Gap BUN Creatinine Est GFR (CKD-EPI 2020) Glucose Calcium Magnesium Total Bilirubin AST ALT Alkaline Phosphatase Total Protein Albumin ABO/Rh Antibody Screen Time Spent with Patient Time Spent with Patient: <25 minutes Time was spent: preparing to see the patient(eg.review tests), indepentently interpreting results and counseling the patient
[2025-06-28] MEDS: traMADol 50 MG TAB 100 MG PO (10:19)
[2025-06-28 11:55] LABS: Vitamin D 25 Total 25 ng/mL (30-100)
--- NOTE | 2025-06-28 12:45 | INITIAL_ITS ---
Date of service: 06/28/25 Time of Service: 12:46 Care Management Initial Assmt Initial Assessment Reason for Hospitalization: Left intertrochnateric fracture Functional Status/Living Situation Patient Presentation: Humble was lying in bed when CM met with him. He was pleasant and engaged well in conversation. He stated that he is still in pain from his surgery yesterday, but that he has had a similar surgery last year on the other hip, so he knows what to expect, and thinks he will feel much better in a couple days. He stated that he does not want to work with PT while at [facility], and would rather wait until he goes back to [facility] (where he resides). CM expressed the importance of him working with PT post operatively, as the facility will appreciate the PT evaluation completed here, which will likely help with their treatment planning. Per MD, he is medically cleared for discharge today. CM contacted the facility and spoke with the supervising RN, who stated that they do not have a provider available for admission until Monday, as this was not a planned return of their patient. CM will coordinate his discharge for Monday. CM will continue to follow. 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) Instrumental Activities of Daily Living (ADLs): Requires support Medications Medication Management: No Issues/Barriers identified (medications managed by facility staff) Physical Functioning/Mobility Assistive Device: w/c and FWW used at [facility] Advance Directives Advance Directives: Do you have an Advance Directive: AD On File at [facility]: N 03/05/24, 07:29 Date Asked 06/27/25 06/27/25, 07:48 AD Date Reviewed COLST On File at [facility] Yes 02/20/24, 06:12 COLST Date Scanned 02/20/24 02/20/24, 06:12 Code Status Resuscitation Status Full Code Insurance Coverage/Financial Issues Insurance: [facility] Care Team Visit Care Team Role Provider Type Evelin Wise MD Primary Care Provider NON-[facility] STAFF PHYSICIAN InPatient Marcel Kim Other Providers OTHER Rene Caballero MD Emergency Provider [facility] STAFF PHYSICIAN Tima Vital MD Admit Provider [facility] STAFF PHYSICIAN Attending Provider Discharge Potential Discharge Needs: PT Evaluation and Other (coordinated return to SNF) Anticipated Barriers to Discharge: Bed availability (SNF cannot accept over the weekend) Patient/Family Education Needs: Review discharge instructions, discuss Ask Me Three Transportation: [facility] RCT Transportation: Wheel chair van Plan: Humble will return to [facility] for Living on Monday; he is medically cleared as of today, but the facility stated that they are unable to take him due to staffing/no provider available over the weekend. CM spoke with facility staff and informed them that he will be ready to return Monday morning. He will continue to work with PT during his hospitalization, and will likely continue PT while at SNF. He will transport via RCT w/c van, coordinated by CM. He will follow up with facility providers and his discharge plan of care. CM will continue to follow. Social Determinants of Health Screening Social Determinants of health last assessed in clinic: 06/27/25 Will the Patient Participate in the Screening?: Unable to obtain Do you worry about having a steady place to live?: choose not to answer Problems where you live: no known problems In the past 12 months, have you had to go without electric, gas, oil or water in your home?: no Has lack of transportation kept you from medical appointments or from doing things needed for daily living?: choose not to answer Has anyone in your life made you feel unsafe or unsupported?: choose not to answer How hard is it for you to pay for the very basics like food, housing, medical care, and heating? Would you say it is:: Not hard at all Do you want help finding or keeping work or a job?: I do not need or want help If for any reason you need help with day-to-day activities such as bathing, preparing meals, shopping, managing finances, etc., do you get the help you need?: I could use a little more help How often do you feel lonely or isolated from those around you?: Often Do you speak a language other than Togolese at home?: No Does the patient want assistance with any of the above?: No Health Related Social Needs Health related social needs: problems with daily activities (Z73.9) and feeling lonely/isolated (Z60.8) Health related social needs details: [facility] All Active Problems (Updated 06/28/25 @ 09:19 by Jimbo Montero MD) Osteoporosis (Chronic) Closed intertrochanteric fracture of left femur (Acute) Anemia due to blood loss (Acute) Depression (Chronic) Advanced care planning/counseling discussion (Acute) Palliative care patient (Acute) CKD (chronic kidney disease) stage 3, GFR 30-59 ml/min (Acute) Frequent falls (Acute) Chronic anticoagulation (Acute) Recurrent gastrointestinal hemorrhage (Acute) Hiatal hernia (Chronic) Gastric ulcer (Acute) CAD (coronary artery disease), [place] coronary artery (Chronic) NSTEMI. Stent placed 01/29/2024 [facility] Acute blood loss anemia (Chronic) Acute upper GI bleed (Acute) Closed hip fracture (Acute) Medical History BPH (benign prostatic hyperplasia) Hyperlipidemia Social History Smoking/Tobacco Use Status: Never Smoking risk assessment performed?: Yes Alcohol Intake: never Drug use: Never Substance use type: does not use Housing: residential Do you feel safe at home: Yes Do you feel safe in your relationship?: Yes
--- NOTE | 2025-06-28 13:07 | PT.INNT ---
PT Notes Visit Reasons: Left intertrochanteric fracture PT evaluation attempted today multiple times with Humble both before and after lunch. The final time this PT asked to work with him he states I don't like you and I will not work with you. He states when I get back across the street I'll work with Kimberly. He mentions I tried sitting up at the edge of the bed and it was too much pain. I won't try again. Pt educated that we are available both today and tomorrow if he changes his mind but he says I won't. Nursing made aware.
--- NOTE | 2025-06-28 14:16 | W.PM.PROGNOT ---
Date of Service Date of service: 06/28/25 Time of Service: 14:16 Assessment and Plan Assessment and plan (1) Closed intertrochanteric fracture of left femur: Status: Acute Assessment and plan: - As seen on x-ray - Orthopedic surgery has seen patient, patient taken to operating room the afternoon of 06/27/2025 - Status post 1300 mg of TXA - Nerve block given by anesthesia - Now postop day 1, doing well - Ready to go back to [facility] on Monday (2) Osteoporosis: Status: Chronic Assessment and plan: - Check vitamin D level - As per discussion with orthopedic surgery, will give zoledronic acid or denosumab (3) Depression: Status: Chronic Assessment and plan: - Continue home venlafaxine (4) CAD (coronary artery disease), [place] coronary artery: Status: Chronic Assessment and plan: - Holding home aspirin prior to surgery as noted above - Continue home rosuvastatin, carvedilol 6.25 mg twice daily (5) CKD (chronic kidney disease) stage 3, GFR 30-59 ml/min: Status: Acute Assessment and plan: - At baseline (1.9-2.4) Subjective Subjective Interval history since last seen: Patient states he is doing well and is appreciative the care he is receiving. He understands he will go [facility] to [facility]. Otherwise he has no other complaints or concerns at this time. Exam Narrative Exam Narrative: Well-appearing older gentleman laying in bed in no acute distress, ANO x 4, heart regular rhythm, lungs good auscultation bilaterally, abdomen soft, nontender, nondistended, decreased range of motion in the left lower extremity at the hip secondary to pain, postoperative bandage in place without surrounding erythema or drainage Objective Last Vital Signs Temp 98.4 F 06/28/25 00:59 Pulse 72 06/28/25 00:59 Resp 18 06/28/25 00:59 BP 131/81 06/28/25 00:59 Pulse Ox 95 06/28/25 00:59 Laboratory Results - last 24 hr 06/28/25 06/28/25 06:25 06:40 WBC 13.22 H RBC 4.01 L Hgb 11.0 L Hct 34.0 L MCV 85 MCH 27.4 MCHC 32.4 RDW 15.5 H Plt Count MPV Sodium 138 Potassium 4.6 Chloride 106 Carbon Dioxide 20.0 L Anion Gap 12.0 H BUN 46 H Creatinine 2.2 H Est GFR (CKD-EPI 2020) 29.54 Glucose 115 H Calcium 8.2 L Magnesium 2.3 25-OH Vitamin D Total 25 L Time Spent with Patient Time Spent with Patient: >50 minutes Time was spent: preparing to see the patient(eg.review tests), obtaining and/or reviewing separately otained hiistory, ordering medications,tests, procedures, referring, communicating with other health administrator health care facility, indepentently interpreting results, counseling the patient and care coordination
[2025-06-28 20:26] VITALS: BP 116/62; PULSE 74; RESP 18; TEMP 37.1; O2SAT 95
[2025-06-28] MEDS: diazePAM 5 MG TAB PO (20:29)
[2025-06-29 04:42] VITALS: BP 127/78; PULSE 73; RESP 20; TEMP 36.7; O2SAT 96
[2025-06-29 07:39] VITALS: BP 115/67; PULSE 83; RESP 18; TEMP 36.6; O2SAT 96
[2025-06-29] MEDS: Valsartan 40 MG TAB 20 MG PO ×2 (08:26→19:21)
[2025-06-29] MEDS: Tamsulosin 0.4 MG CAPCR PO (08:26)
[2025-06-29] MEDS: Venlafaxine 150 MG CAPCR PO (08:26)
[2025-06-29] MEDS: Venlafaxine 37.5 MG CAPCR 75 MG PO (08:26)
[2025-06-29] MEDS: Pantoprazole 40 MG TABCR PO ×2 (08:26→19:21)
[2025-06-29] MEDS: Carvedilol 6.25 MG TAB PO ×2 (08:26→19:22)
[2025-06-29] MEDS: Finasteride 5 MG TAB PO (08:26)
[2025-06-29] MEDS: Acetaminophen 325 MG TAB 650 MG PO (08:30)
[2025-06-29] MEDS: Rosuvastatin 20 MG TAB PO (08:30)
--- NOTE | 2025-06-29 09:01 | PGE_ITS ---
Date of Service Date of service: 06/29/25 Time of Service: 09:01 Assessment and Plan Assessment and plan (1) Closed intertrochanteric fracture of left femur: Status: Acute Assessment and plan: - As seen on x-ray - Orthopedic surgery has seen patient, patient taken to operating room the afternoon of 06/27/2025 - Status post 1300 mg of TXA - Nerve block given by anesthesia - Now postop day 1, doing well - Ready to go back to [facility] on Monday (2) Osteoporosis: Status: Chronic Assessment and plan: - Vitamin D low at 25, but not >15, therefore does not need to be corrected prior to zolendronic acid administration, but will start on long-term replacement of vit D 1000U daily - As per discussion with orthopedic surgery, will give zoledronic acid prior to DC tomorrow, 06/30 (3) Depression: Status: Chronic Assessment and plan: - Continue home venlafaxine (4) CAD (coronary artery disease), [place] coronary artery: Status: Chronic Assessment and plan: - Holding home aspirin prior to surgery as noted above - Continue home rosuvastatin, carvedilol 6.25 mg twice daily (5) CKD (chronic kidney disease) stage 3, GFR 30-59 ml/min: Status: Acute Assessment and plan: - At baseline (1.9-2.4) Subjective Subjective Interval history since last seen: Patient states that he is doing well and looking forward to being discharged tomorrow. Exam Narrative Exam Narrative: Well-appearing older gentleman laying in bed in no acute distress, ANO x 4, heart regular rhythm, lungs good auscultation bilaterally, abdomen soft, nontender, nondistended, decreased range of motion in the left lower extremity at the hip secondary to pain, postoperative bandage in place without surrounding erythema or drainage Objective Last Vital Signs Temp 97.9 F 06/29/25 07:39 Pulse 83 06/29/25 07:39 Resp 18 06/29/25 07:39 BP 115/67 06/29/25 07:39 Pulse Ox 96 06/29/25 07:39 Laboratory Results - last 24 hr 06/28/25 06:25 25-OH Vitamin D Total 25 L Time Spent with Patient Time Spent with Patient: >50 minutes Time was spent: preparing to see the patient(eg.review tests), obtaining and/or reviewing separately otained hiistory, ordering medications,tests, procedures, referring, communicating with other health acute care certified nursing assistant, indepentently interpreting results, counseling the patient and care coordination
[2025-06-29 11:16] VITALS: BP 109/59; PULSE 71; RESP 18; TEMP 36.6; O2SAT 96
--- NOTE | 2025-06-29 13:49 | IN_ITS ---
PT Notes Visit Reasons: Left intertrochanteric fracture Inpatient Physical Therapy Evaluation Date: 06/29/25 Referring Doctor: Dr. Santiago PT Orders: PT CONSULT: s/p ortho surgery Precautions: LLE WBAT Patient Profile/Admitting Diagnosis: Left intertrochanteric fracture PMHX: CAD, CKD, previous falls Social History/Home Situation: Lives across the street at [facility] Current Functional Limitations: Notes he is normally able to get up indep endently but doesn't walk much Subjective: Pt has been unwilling to work with PT until now. He was sitting up at the EOB with this PT arrived to assist nursing. He states that his pain is now better controlled. He had a L hip fracture that required surgery two days ago following a fall. Objective: General Observation: well-appearing, no acute distress, welcomes this PT into his room today Mental Status: A+Ox4 Pain: none at rest, increases significant in L hip with weight bearing Vital Signs: monitored by nursing Strength: Able to perform LAQ, ankle DF/PF on LLE but this is visibly taxing for him Unable to perform SLR (per nursing) Bed Mobility/Transfers: semi-supine to sitting at EOB w/max assist sitting to semi-supine at EOB w/max assist sitting to standing w/mod assist standing to sitting w/mod assist Gait: not performed Balance: Static Sitting: good Dynamic Sitting: good Static Standing: fair w/RW Dynamic Standing: poor Special Tests: Mobility Limitations Standardized Measure [facility] AM-PAC 6 clicks Basic Mobility Inpatient Short Form: Raw Score: 10 CMS Score: 76.75% Informed Consent/Education: Patient instructed in purpose of PT consult and plan of care. Assessment: Pt was agreeable to PT evaluation today after refusing previously. He does show many functional deficits that require significant assistance which including supine to sitting and sitting to standing. Ambulation was not able to be attempted today due to pain but he should be able to progress to this shortly. A swap transfer should be performed to get him from the bed into the wheelchair if he does get d/c'd tomorrow. D/c to SNF for continued rehabilitation is necessary which he lives at one anyway. He does want to discuss d/c planning further with his surgeon. Patient [place] a Low [id number] complexity based on the following: History: Low Examination: Low Presentation: Low Decision Making: Low Goals: Goals X1 week 1. Supine-Sit w/CGA 2. Sit-Supine w/CGA 3. Sit-Stand w/CGA 4. Stand-Sit w/CGA 5. Bed-Chair w/CGA 6. Chair-Bed w/CGA 7. Gait - 30 ft w/RW and CGA Plan of Care/Treatment Plan: 1-2x/day, 7 days/week x 1 week. Plan of care has been reviewed with the CHAINSTITCH SEAT JOINER providing the service under Physical Therapy direction. Initiate Physical Therapy intervention for strengthening, bed mobility, transfers, gait, stairs, balance training, use of assistive device. DISCHARGE RECOMMENDATIONS: SNF for continued rehabilitation [x] SNF for continued rehabilitation TREATMENT CODE/TIME: Ravin Szymanski (19693)x1 - 18 min
[2025-06-29] MEDS: Cholecalciferol (Vitamin D3) 1,000 UNIT TAB 1000 UNITS PO (15:02)
[2025-06-29 15:05] VITALS: BP 108/54; PULSE 70; RESP 16; TEMP 36.8; O2SAT 96
[2025-06-29 19:19] VITALS: BP 107/57; PULSE 68; RESP 18; TEMP 36.8; O2SAT 96
[2025-06-29] MEDS: diazePAM 5 MG TAB PO (19:21)
[2025-06-29 23:17] VITALS: BP 101/52; PULSE 70; RESP 16; TEMP 36.8; O2SAT 95
[2025-06-30 05:20] VITALS: BP 118/57; PULSE 68; RESP 17; TEMP 36.5; O2SAT 95
[2025-06-30 07:32] VITALS: BP 126/73; PULSE 73; RESP 17; TEMP 36.5; O2SAT 96
[2025-06-30] MEDS: Finasteride 5 MG TAB PO (09:19)
[2025-06-30] MEDS: Rosuvastatin 20 MG TAB PO (09:20)
[2025-06-30] MEDS: Valsartan 40 MG TAB 20 MG PO ×2 (09:20→20:42)
[2025-06-30] MEDS: Tamsulosin 0.4 MG CAPCR PO (09:20)
[2025-06-30] MEDS: Carvedilol 6.25 MG TAB PO ×2 (09:20→20:43)
[2025-06-30] MEDS: Venlafaxine 150 MG CAPCR PO (09:20)
[2025-06-30] MEDS: Cholecalciferol (Vitamin D3) 1,000 UNIT TAB 1000 UNITS PO (09:20)
[2025-06-30] MEDS: Venlafaxine 37.5 MG CAPCR 75 MG PO (09:20)
[2025-06-30] MEDS: Pantoprazole 40 MG TABCR PO ×2 (09:20→20:43)
--- NOTE | 2025-06-30 09:46 | PDOC.CMDIS ---
Documented by User: Mouna Cisneros RN 07/04/25 09:03 Date of service: 06/30/25 Time of Service: 09:46 LACE Index Scoring Tool Questions: Length of Stay (in days): 4 - 6 Was the patient admitted via the E.D.?: Yes Comorbidities: Liver or Renal Disease E.D. Visits: 1 Answers: Total Score: 13 Risk of Readmission: High Risk Care Management Discharge Plan Reason for Hospitalization: Left intertrochanteric fracture Discharge Plan: Humble appealed his discharge on 06/30/25 and was notified on 07/01/25 that Medicare denied his discharge appeal. He is being discharged back to [facility] for resumption of correction care and PT on 07/02/25 via RCT W/C golden. Humble will follow up with facility/community providers and continue per the established discharge plan of care. Patient/Family Education Needs: Review discharge instructions and plan to follow up after discharge. Discuss ask me three. Services Needed at Discharge: Long-Term Facility (Return to [facility]) and Transportation (RCT W/C golden coordinated by CM) SDOH Health Related Social Needs: Health related social needs daily activities lonely/isolated Health related social needs details SNIF Health related social needs details: SNIF Documented by User: Coretta Correa 07/02/25 14:25 LACE Index Scoring Tool Answers: Total Score: 13 Risk of Readmission: High Risk Care Management Discharge SDOH Health Related Social Needs: Health related social needs daily activities lonely/isolated Health related social needs details SNIF
--- NOTE | 2025-06-30 10:26 | DSE_ITS ---
Date of service: 06/30/25 Time of Service: 10:26 DS: Diagnosis Discharge Diagnosis (1) Closed intertrochanteric fracture of left femur: Status: Acute (2) Osteoporosis: Status: Chronic (3) Depression: Status: Chronic (4) CAD (coronary artery disease), [place] coronary artery: Status: Chronic (5) CKD (chronic kidney disease) stage 3, GFR 30-59 ml/min: Status: Acute Discharge Plan Disposition Patient Disposition: Long Term Facility(SNF) Condition: Good Discharge Details Reason For Visit: Left intertrochanteric fracture Admit Date/Time: 06/27/25 10:12 Admit Provider: Tima Vital Attending Provider: Tima Vital Primary Care Provider: Evelin Wise Hospital Course Hospital Course: Patient initially presented after experiencing a fall resulting in left intertrochanteric fracture that was repaired on the day of admission 06/27/2025. Patient tolerated procedure well and worked with physical therapy and did well and was determined to be ready to go back to subacute rehab. Additionally, at the recommendation of orthopedic surgery patient has vitamin D and calcium levels checked vitamin D was somewhat low and was replaced but given high risk for osteoporosis and further fractures patient was given a dose of zoledronic acid prior to discharge. Ultimately, was determined that the patient was stable for discharge back to [facility]. Home Meds and New Rx's Prescriptions: New cholecalciferol (vitamin D3) 25 mcg (1,000 unit) Tablet 1,000 unit PO DAILY Qty: 90 0RF Continued acetaminophen 325 mg capsule See Rx Instructions PO Q6H PRN Rx Instructions: 1 GM Q 6h PRN orally every 6 hours PRN; every 5 hours as needed for mild pain diazepam 5 mg tablet 5 mg PO QHS ondansetron HCl 4 mg tablet 4 mg PO Q6H PRN albuterol sulfate 90 mcg/actuation aero powdr breath act w/sensor 2 inh inhalation Q4H PRN (Reason: shortness of breath or wheezing) Qty: 1 0RF valsartan 40 mg tablet 20 mg PO BID ferrous gluconate 324 mg (38 mg iron) tablet 324 mg PO DAILY pantoprazole 40 mg Tablet,Delayed Release (Dr/Ec) 40 mg PO BID@0730,1999 Qty: 0 0RF rosuvastatin 20 mg tablet 20 mg PO DAILY tamsulosin 0.4 mg capsule 0.4 mg PO DAILY venlafaxine 150 mg capsule,extended release 24hr 150 mg PO DAILY Patient Comments: take with 75mg venlafaxine for total of 225mg venlafaxine 75 mg tablet 75 mg PO DAILY aspirin 81 mg tablet,chewable 81 mg PO DAILY carvedilol 6.25 mg tablet 6.25 mg PO BID Rx Instructions: must administer with a meal/food empagliflozin 10 mg tablet 10 mg PO DAILY finasteride 5 mg tablet 5 mg PO DAILY magnesium hydroxide [Milk of Magnesia] 400 mg/5 mL suspension 30 ml PO DAILY PRN Rx Instructions: Give 30 ml by mouth every 24 hours as needed for constipation give at bedtime if no BM in 3 days. prednisolone acetate 1 % drops,suspension 1 drp ophthalmic (eye) DAILY Rx Instructions: 1 drop in right eye one time per day for eye pain. brinzolamide 1 % drops,suspension 1 drp ophthalmic (eye) TID Rx Instructions: Left Eye only simethicone [Gas Relief (simethicone)] 125 mg capsule 125 mg PO DAILY PRN trazodone 150 mg tablet 150 mg PO QHS cholecalciferol (vitamin D3) 125 mcg (5,000 unit) capsule 5,000 unit PO DAILY docusate sodium 100 mg capsule 100 mg PO DAILY PRN bisacodyl [Dulcolax (bisacodyl)] 10 mg suppository 10 mg [place] DAILY PRN glucagon 1 mg kit 1 mg IM PRN dextrose [Glucose Gel] 40 % gel 10 g PO Q15M PRN Rx Instructions: until symptoms of low blood sugar are controlled Discharge Instructions Activity:: Activity as Tolerated Equipment/Supplies:: No Equipment Needed Diet:: As Tolerated Discharge Orders Discharge Orders: Discharge Order (Routine); Ordered 06/30/25 Ordered By: Tima Vital DS: Summary Time Spent with Patient providing and/or coordinating discharge services: Greater than 30 minutes Status at Discharge Functional status at discharge: independent ambulation Overall status at discharge: patient is back to baseline Mental Status: mental status grossly normal Speech and Movement: speech and movement normal Mood: congruent mood Affect: normal affect Quality:SDOH Health Related Social Needs: Health related social needs daily activities lonely/is olated Health related social needs details SNIF Health related social needs details: SNIF Exam Narrative Exam Narrative: Well-appearing older gentleman laying in bed in no acute distress, ANO x 4, heart regular rhythm, lungs good auscultation bilaterally, abdomen soft, nontender, nondistended, decreased range of motion in the left lower extremity at the hip secondary to pain, postoperative bandage in place without surrounding erythema or drainage Psych Mental Status: mental status grossly normal Speech and Movement: speech and movement normal Mood: congruent mood Affect: normal affect DS: Data Vitals/I&O Vitals and I&O: Vital Signs Temperature 97.7 F 06/30/25 07:32 Temperature Source Temporal Artery Scan 06/30/25 07:32 Pulse 73 06/30/25 07:32 Pulse 70 06/27/25 17:01 Respiratory Rate 17 06/30/25 07:32 Respiratory Effort Normal 06/27/25 11:50 Respiratory Depth Normal 06/27/25 11:50 Respiratory Pattern Normal 06/27/25 11:50 Blood Pressure 126/73 06/30/25 07:32 Blood Pressure Mean 90 06/30/25 07:32 Pulse Oximetry 96 06/30/25 07:32 Respiratory End-tidal CO2 21 06/27/25 16:50 Oxygen Delivery Method Room Air 06/30/25 07:32 Oxygen Flow Rate 0 06/30/25 07:32 Pain Level 0 06/30/25 07:32 Intake & Output 06/29/25 06/30/25 06/30/25 17:59 05:59 17:59 Intake Total 20 / 20 Output Total 760 / 760 250 / 1010 Balance -740 / -740 -250 / -990 Intake: Oral 20 / 20 Output: Urine 760 / 760 250 / 1010 Other: Urine Color Yellow Light [place] Urine Appearance Clear Clear Urine Odor Normal Strong Comment Pt voids ind. in urinal in bed. Pt voids ind. in urinal in the bed. PFSH All Active Problems (Updated 06/28/25 @ 09:19 by Jimbo Montero MD) Osteoporosis (Chronic) Closed intertrochanteric fracture of left femur (Acute) Anemia due to blood loss (Acute) Depression (Chronic) Advanced care planning/counseling discussion (Acute) Palliative care patient (Acute) CKD (chronic kidney disease) stage 3, GFR 30-59 ml/min (Acute) Frequent falls (Acute) Chronic anticoagulation (Acute) Recurrent gastrointestinal hemorrhage (Acute) Hiatal hernia (Chronic) Gastric ulcer (Acute) CAD (coronary artery disease), [place] coronary artery (Chronic) NSTEMI. Stent placed 01/29/2024 [facility] Acute blood loss anemia (Chronic) Acute upper GI bleed (Acute) Closed hip fracture (Acute) Medical History BPH (benign prostatic hyperplasia) Hyperlipidemia Social History Smoking/Tobacco Use Status: Never Smoking risk assessment performed?: Yes Alcohol Intake: never Drug use: Never Substance use type: does not use Housing: [facility] Do you feel safe at home: Yes Do you feel safe in your relationship?: Yes Time Spent with Patient Time Spent with Patient: <45 minutes Time was spent: preparing to see the patient(eg.review tests), obtaining and/or reviewing separately otained hiistory, ordering medications,tests, procedures, referring, communicating with other health senior caregiver, indepentently interpreting results, counseling the patient and care coordination
--- NOTE | 2025-06-30 12:58 | PDOC.CMPRO ---
Date of service: 06/30/25 Time of Service: 12:58 Care Management Progress Note Progress Note Text Progress Note Text: Humble was awake and lying in bed when CM met with him, his primary RN is present. Humble verbalizes that he does not ready to return to the SNF where he resides, despite being told that he is medically ready. He reports that the doctor he met with moments ago hasn't evaluated him yet and doesn't know what is going on, stating that to he thought the goal is to do no harm.Patient states that yesterday he required a janine lift with assistance of 3 staff to transition from the bed to the chair, further stating that he was shaking and scared. He is certain the SNF where he resides is not capable of meeting his transfer needs and asks to start the appeal process as he did last hospitalization. CM provided patient with the necessary information to initiate his discharge appeal. He states that he intends to contact his government claims customer service representative regarding his discharge first among other representatives at the state level. Patient required assistance dialing the number to his claims customer service representative, which CM provided. CM reminded patient that the discharge appeal process must also be initiated in order for him to remain in the hospital, pt agrees. CM will continue to follow and support discharge back to [facility], once reviewed by his insurer and deemed medically appropriate. Discharge Potential Discharge Needs: PCP F/U Appt Anticipated Barriers to Discharge: None Identified Patient/Family Education Needs: Review discharge instructions, discuss Ask Me Three Transportation: RCT RCT Transportation: Wheel chair van Plan: Patient is medically cleared to return to the care home facility where he resides with continued PT. Discharge order was placed today, however Humble has elected to appeal his discharge per Medicare guidelines. CM will follow discharge appeal and support coordination back to [facility] if/when deemed medically appropriate. Transportation will be based on mobility at the time of discharge: RCT W/C van vs EMS. Social Determinants of Health Screening Social Determinants of health last assessed in clinic: 06/27/25 Will the Patient Participate in the Screening?: Unable to obtain Do you worry about having a steady place to live?: choose not to answer Problems where you live: no known problems In the past 12 months, have you had to go without electric, gas, oil or water in your home?: no Has lack of transportation kept you from medical appointments or from doing things needed for daily living?: choose not to answer Has anyone in your life made you feel unsafe or unsupported?: choose not to answer How hard is it for you to pay for the very basics like food, housing, medical care, and heating? Would you say it is:: Not hard at all Do you want help finding or keeping work or a job?: I do not need or want help If for any reason you need help with day-to-day activities such as bathing, preparing meals, shopping, managing finances, etc., do you get the help you need?: I could use a little more help How often do you feel lonely or isolated from those around you?: Often Do you speak a language other than Mongolian at home?: No Does the patient want assistance with any of the above?: No Health Related Social Needs Health related social needs: problems with daily activities (Z73.9) and feeling lonely/isolated (Z60.8) Health related social needs details: SNIF
--- NOTE | 2025-06-30 13:56 | PT.INNT ---
PT Notes Visit Reasons: Left intertrochanteric fracture Pt approached for PT x 3 however he refused. Pt education provided on the importance of being out of bed and to work with PT to regain his strength and range of motion. 10 mins not charged for the multiple attempts. He continued to decline participation.
[2025-06-30 15:33] VITALS: BP 107/63; PULSE 75; RESP 16; TEMP 36.5; O2SAT 97
[2025-06-30 19:32] VITALS: BP 110/62; PULSE 80; RESP 20; TEMP 37.3; O2SAT 96
[2025-06-30] MEDS: diazePAM 5 MG TAB PO (20:43)
[2025-06-30] MEDS: Normal Saline Flush 10 ML SYR IVP (20:45)
[2025-06-30 23:44] VITALS: BP 116/72; PULSE 66; RESP 16; TEMP 37.1; O2SAT 96
[2025-07-01 03:21] VITALS: BP 116/98; PULSE 71; RESP 16; TEMP 36.7; O2SAT 97
[2025-07-01 09:11] VITALS: BP 109/68; PULSE 68; RESP 16; TEMP 37.1; O2SAT 96
[2025-07-01] MEDS: Finasteride 5 MG TAB PO (09:13)
[2025-07-01] MEDS: Valsartan 40 MG TAB 20 MG PO ×2 (09:14→20:12)
[2025-07-01] MEDS: Cholecalciferol (Vitamin D3) 1,000 UNIT TAB 1000 UNITS PO (09:14)
[2025-07-01] MEDS: Venlafaxine 150 MG CAPCR PO (09:14)
[2025-07-01] MEDS: Carvedilol 6.25 MG TAB PO ×2 (09:15→20:12)
[2025-07-01] MEDS: Pantoprazole 40 MG TABCR PO ×2 (09:15→20:12)
[2025-07-01] MEDS: Venlafaxine 37.5 MG CAPCR 75 MG PO (09:15)
[2025-07-01] MEDS: Rosuvastatin 20 MG TAB PO (09:15)
[2025-07-01] MEDS: Tamsulosin 0.4 MG CAPCR PO (09:16)
[2025-07-01] MEDS: traMADol 50 MG TAB 100 MG PO (10:14)
[2025-07-01 12:04] VITALS: BP 106/74; PULSE 73; RESP 18; TEMP 36.9; O2SAT 96
--- NOTE | 2025-07-01 12:11 | PT.INTREAT ---
PT Notes Visit Reasons: Left intertrochanteric fracture Inpatient Physical Therapy Treatment Note [facility] Date: 07/01/2025 PRECAUTIONS:WBAT LLE SUBJECTIVE: Pt reports his pain is the most in his thigh and when he has to bend his knee OBJECTIVE:Pt presented initially supine with towel over his eyes . He agreed to participate in bed level exercises without needing pain medicine. (Pt was offered and declined) after completing 4 exercises he requested pain meds and session ended to allow a 1 hour time to rest and let pain meds work. He was reapproached and agreed to attempt sitting at EOB tasks ? PAIN: supine without meds 05/01 after meds 01/30 then during transition to stand 04/01 once in stand pt stated 12/30 VITALS: ? Pre-Treatment: 106/74, 73bpm, 96% Second session Therapeutic Activities (05265c[]): Direct one-on-one instruction in dynamic activities to improve functional performance. ? BED MOBILITY/TRANSFERS? Rolling L/R: mod A Supine-sit: mod A of 1? Sit-supine: Max A of 2? Sit-stand: mod A of 2 x 3 trials ? Stand-sit: min A of 2 x 3 trials ? Bed-Chair: declined ? Chair-bed:declined Provided skilled cues and instruction on performance and technique throughout. First session)? Therapeutic Exercises (19633m[]): Direct one-on-one instruction in therapeutic exercises to develop strength, endurance, range of motion and flexibility. ? Exercises ?supine: heelslides, glut sets, quad sets , SAQ,x 10 reps ? ASSESSMENT:?Pt benefited from premedication for OOB tasks. He was able to assist with bed mobility and transfers sit to/from stand from an elevated bed height of 26 inches and BUE on FWW that was stabilized bt PT and [employer]ENT[employer] Hardik. Pt was unable to achiev stand by pushing up from bed. Pt able to achieve full upright posture x 45 sec x 2 with assist of 2. Pt unable to lift LLE off the floor at this time. Pt would benefit from skilled PT within SNF to return to his PLOF ambulating with FWW or pushing his w/c from behind. Pt status discussed with Dr Montero. PLAN: Cont per POC with supine exercises and progress with transfers as pt is able and willing. TREATMENT CODE/TIME: First session [id number]/ [id number]; second session: [id number] DISCHARGE RECOMMENDATION: Return to SNF with skilled PT
[2025-07-01] MEDS: Normal Saline Flush 10 ML SYR IVP ×2 (14:07→20:13)
[2025-07-01 15:04] VITALS: BP 108/58; PULSE 76; RESP 15; TEMP 37; O2SAT 97
[2025-07-01] MEDS: Acetaminophen 325 MG TAB 650 MG PO (15:23)
--- NOTE | 2025-07-01 15:27 | PGE_ITS ---
Date of Service Date of service: 07/01/25 Time of Service: 15:27 Assessment and Plan Assessment and plan (1) Closed intertrochanteric fracture of left femur: Status: Acute Assessment and plan: - As seen on x-ray - Orthopedic surgery has seen patient, patient taken to operating room the afternoon of 06/27/2025 - Status post 1300 mg of TXA - Nerve block given by anesthesia - Now postop day 4, doing well - Patient appealed his discharge on 06/30/2025 and was informed that he has lost his appeal on 07/01/2025 and will be returning back to [facility] and rehab on 07/02/2025 (2) Osteoporosis: Status: Chronic Assessment and plan: - Vitamin D low at 25, but not >15, therefore does not need to be corrected prior to zolendronic acid administration, but will start on long-term replacement of vit D 1000U daily - As per discussion with orthopedic surgery now s/p dose of zolendronic acid (3) Depression: Status: Chronic Assessment and plan: - Continue home venlafaxine (4) CAD (coronary artery disease), an[place] coronary artery: Status: Chronic Assessment and plan: - Holding home aspirin prior to surgery as noted above - Continue home rosuvastatin, carvedilol 6.25 mg twice daily (5) CKD (chronic kidney disease) stage 3, GFR 30-59 ml/min: Status: Acute Assessment and plan: - At baseline (1.9-2.4) Subjective Subjective Interval history since last seen: Patient stated that I canceled my appeal when I said consult the case, he then stated while they canceled my appeal. I then stated that his appeal was not canceled, and that it was submitted to his insurance company who is in agreement with hospital staff that the patient no longer required hospitalization and that he would be discharged back to [facility] tomorrow by noon on 07/02/2025. Exam Narrative Exam Narrative: Patient declined examination Objective Last Vital Signs Temp 98.6 F 07/01/25 15:04 Pulse 76 07/01/25 15:04 Resp 15 07/01/25 15:04 BP 108/58 L 07/01/25 15:04 Pulse Ox 97 07/01/25 15:04 Time Spent with Patient Time Spent with Patient: >50 minutes Time was spent: preparing to see the patient(eg.review tests), obtaining and/or reviewing separately otained hiistory, ordering medications,tests, procedures, referring, communicating with other health transitional care nurse, indepentently interpreting results, counseling the patient and care coordination
--- NOTE | 2025-07-01 16:41 | PDOC.CMPRO ---
Date of service: 07/01/25 Time of Service: 16:41 Care Management Progress Note Progress Note Text Progress Note Text: Humble was awake and lying in bed when CM met with him. He has been medically ready for discharge for several days; however, his return to SNF was initially delayed as the facility was unable to accept him back on Monday. On the following day, when the SNF indicated readiness to accept his transfer, he appealed the discharge. CM met again with Humble this afternoon after notification was received that the appeal was denied. During this discussion, Humble shook his head and stated that I am not leaving tomorrow and you can't stop me.He reported to have finally found the one that is going to make me healthy and referred to Alyssa from PT. While he did agree to work with Alyssa today, he refused to participate in PT yesterday despite her making three separate attempts. CM attempted to let him know that he was able to stay the night and would more than likely have the opportunity to work with PT again, however Humble told me to shut up and get the hell out, following which I made a prompt exit. Humble is scheduled to discharge back to [facility] on 07/02/25 via RCT W/C van for a resumption of long term care and PT. It is recommended that he follow up with facility/community providers and continue per the established discharge plan of care. CM will follow and plans to coordinate RCT in the morning. Discharge Potential Discharge Needs: PCP F/U Appt Anticipated Barriers to Discharge: None Identified Patient/Family Education Needs: Review discharge instructions, discuss Ask Me Three Transportation: RCT Plan: Humble appealed his discharge on 06/30/25 and was notified on 07/01/25 that Medicare denied his discharge appeal. He is being discharged back to [facility] for resumption of long term care and PT on 07/02/25 via RCT W/C van. Humble will follow up with facility/community providers and continue per the established discharge plan of care. Social Determinants of Health Screening Social Determinants of health last assessed in clinic: 06/27/25 Will the Patient Participate in the Screening?: Unable to obtain Do you worry about having a steady place to live?: choose not to answer Problems where you live: no known problems In the past 12 months, have you had to go without electric, gas, oil or water in your home?: no Has lack of transportation kept you from medical appointments or from doing things needed for daily living?: choose not to answer Has anyone in your life made you feel unsafe or unsupported?: choose not to answer How hard is it for you to pay for the very basics like food, housing, medical care, and heating? Would you say it is:: Not hard at all Do you want help finding or keeping work or a job?: I do not need or want help If for any reason you need help with day-to-day activities such as bathing, preparing meals, shopping, managing finances, etc., do you get the help you need?: I could use a little more help How often do you feel lonely or isolated from those around you?: Often Do you speak a language other than Citizen Of [place] at home?: No Does the patient want assistance with any of the above?: No Health Related Social Needs Health related social needs: problems with daily activities (Z73.9) and feeling lonely/isolated (Z60.8) Health related social needs details: SNIF
--- NOTE | 2025-07-01 17:00 | CHAPLAIN ---
Humble was in bed when I visited. He is listed on our Yarsanism Roster as being Gnosticist. 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 He told me that he had appealed his discharged yesterday today and found out that his appeal was denied. When I asked who his supports are he mentioned a best friend and then asked for helping in making a phone, which I helped him with and then left when he when his phone conversation began.
--- NOTE | 2025-07-01 18:19 | W.PM.PROGNOT ---
Date of Service Date of service: 07/01/25 Time of Service: 10:05 Assessment and Plan Assessment and plan (1) Closed intertrochanteric fracture of left femur: Status: Acute Assessment and plan: Humble is postop day #4 from intramedullary nail fixation of an intertrochanteric fracture of the left hip. He has been very reluctant work physical therapy but also has declined transfer to the health [facility] rehab. He was able to work with PT today and stood with moderate assist at the bedside. This is a great improvement have encouraged him to work on this with physical therapy. He must really work on this and then go back to health and rehab. There are no signs of complication. Continue weightbearing as tolerated with assistive devices. Continue physical therapy. Resume anticoagulation. DC based on medicine and physical therapy recommendations. Subjective Subjective Interval history since last seen: Humble reports to be doing okay. He demonstrates has been working on sitting up in the bed unassisted. He did stand with physical therapy although he is been reluctant to work with physical therapy. Initially he was discharged to [facility] but he is appealing this decision as he does not feel that that is the best place for him although he does seem to talk favorably about the physical therapist at the health and rehab as well as the other activities there. No other acute events are identified. Exam Narrative Exam Narrative: Resting in the bed. No acute distress. Evaluation the left leg shows a soft and compressible thigh. No ecchymosis. No significant swelling. Clean dry and intact dressings. No significant pain with hip internal and external rotation. Objective Last Vital Signs Temp 37.0 C 07/01/25 15:04 Pulse 76 07/01/25 15:04 Resp 15 07/01/25 15:04 BP 108/58 L 07/01/25 15:04 Pulse Ox 97 07/01/25 15:04 Time Spent with Patient Time Spent with Patient: <25 minutes Time was spent: preparing to see the patient(eg.review tests), obtaining and/or reviewing separately otained hiistory and counseling the patient
[2025-07-01 19:57] VITALS: BP 110/84; PULSE 76; RESP 19; TEMP 36.7; O2SAT 96
[2025-07-01] MEDS: diazePAM 5 MG TAB PO (20:12)
[2025-07-02 07:07] VITALS: BP 121/71; PULSE 75; RESP 18; TEMP 36.6; O2SAT 96
[2025-07-02] MEDS: Rosuvastatin 20 MG TAB PO (07:26)
[2025-07-02] MEDS: Finasteride 5 MG TAB PO (07:26)
[2025-07-02] MEDS: Venlafaxine 37.5 MG CAPCR 75 MG PO (07:26)
[2025-07-02] MEDS: Tamsulosin 0.4 MG CAPCR PO (07:27)
[2025-07-02] MEDS: Pantoprazole 40 MG TABCR PO (07:27)
[2025-07-02] MEDS: Venlafaxine 150 MG CAPCR PO (07:27)
[2025-07-02] MEDS: Cholecalciferol (Vitamin D3) 1,000 UNIT TAB 1000 UNITS PO (07:27)
[2025-07-02] MEDS: Carvedilol 6.25 MG TAB PO (07:28)
[2025-07-02] MEDS: Valsartan 40 MG TAB 20 MG PO (07:28)
[2025-07-02] MEDS: traMADol 50 MG TAB 100 MG PO (07:30)
[2025-07-02] MEDS: Normal Saline Flush 10 ML SYR IVP (07:38)
--- NOTE | 2025-07-02 09:15 | W.PM.DS.N ---
Date of service: 07/02/25 Time of Service: 09:16 DS: Diagnosis Discharge Diagnosis (1) Closed intertrochanteric fracture of left femur: Status: Acute Asessment and Plan: - As seen on x-ray - Orthopedic surgery has seen patient, patient taken to operating room the afternoon of 06/27/2025 - Status post 1300 mg of TXA - Nerve block given by anesthesia - Now postop day 4, doing well - Patient appealed his discharge on 06/30/2025 and was informed that he has lost his appeal on 07/01/2025 and will be returning back to [facility] and rehab on 07/02/2025 Discharge Plan Disposition Patient Disposition: [facility]way Facility(SNF) Condition: Good Discharge Details Reason For Visit: Left intertrochanteric fracture Admit Date/Time: 06/27/25 10:12 Admit Provider: Tima Vital Attending Provider: Tima Vital Primary Care Provider: Evelin Wise Hospital Course Hospital Course: Patient initially presented after experiencing a fall resulting in left intertrochanteric fracture that was repaired on the day of admission 06/27/2025. Patient tolerated procedure well and worked with physical therapy and did well and was determined to be ready to go back to subacute rehab. Additionally, at the recommendation of orthopedic surgery patient has vitamin D and calcium levels checked vitamin D was somewhat low and was replaced but given high risk for osteoporosis and further fractures patient was given a dose of zoledronic acid prior to discharge. Ultimately, was determined that the patient was stable for discharge back to health and rehab. Home Meds and New Rx's Prescriptions: New cholecalciferol (vitamin D3) 25 mcg (1,000 unit) Tablet 1,000 unit PO DAILY Qty: 90 0RF Continued acetaminophen 325 mg capsule See Rx Instructions PO Q6H PRN Rx Instructions: 1 GM Q 6h PRN orally every 6 hours PRN; every 5 hours as needed for mild pain diazepam 5 mg tablet 5 mg PO QHS ondansetron HCl 4 mg tablet 4 mg PO Q6H PRN albuterol sulfate 90 mcg/actuation aero powdr breath act w/sensor 2 inh inhalation Q4H PRN (Reason: shortness of breath or wheezing) Qty: 1 0RF valsartan 40 mg tablet 20 mg PO BID ferrous gluconate 324 mg (38 mg iron) tablet 324 mg PO DAILY pantoprazole 40 mg Tablet,Delayed Release (Dr/Ec) 40 mg PO BID@729,1999 Qty: 0 0RF rosuvastatin 20 mg tablet 20 mg PO DAILY tamsulosin 0.4 mg capsule 0.4 mg PO DAILY venlafaxine 150 mg capsule,extended release 24hr 150 mg PO DAILY Patient Comments: take with 75mg venlafaxine for total of 225mg venlafaxine 75 mg tablet 75 mg PO DAILY aspirin 81 mg tablet,chewable 81 mg PO DAILY carvedilol 6.25 mg tablet 6.25 mg PO BID Rx Instructions: must administer with a meal/food empagliflozin 10 mg tablet 10 mg PO DAILY finasteride 5 mg tablet 5 mg PO DAILY magnesium hydroxide [Milk of Magnesia] 400 mg/5 mL suspension 30 ml PO DAILY PRN Rx Instructions: Give 30 ml by mouth every 24 hours as needed for constipation give at bedtime if no BM in 3 days. prednisolone acetate 1 % drops,suspension 1 drp ophthalmic (eye) DAILY Rx Instructions: 1 drop in right eye one time per day for eye pain. brinzolamide 1 % drops,suspension 1 drp ophthalmic (eye) TID Rx Instructions: Left Eye only simethicone [Gas Relief (simethicone)] 125 mg capsule 125 mg PO DAILY PRN trazodone 150 mg tablet 150 mg PO QHS cholecalciferol (vitamin D3) 125 mcg (5,000 unit) capsule 5,000 unit PO DAILY docusate sodium 100 mg capsule 100 mg PO DAILY PRN bisacodyl [Dulcolax (bisacodyl)] 10 mg suppository 10 mg GA DAILY PRN glucagon 1 mg kit 1 mg IM PRN dextrose [Glucose Gel] 40 % gel 10 g PO Q15M PRN Rx Instructions: until symptoms of low blood sugar are controlled Discharge Instructions Stand Alone Forms: Nursing Discharge Form Referrals: Evelin Wise MD [Primary Care Provider, Medicine] Referral Note: Please call for a follow appointment. Jimbo Montero MD [ [facility] STAFF PHYSICIAN, Orthopaedic Surgical] Activity:: Activity as Tolerated Equipment/Supplies:: No Equipment Needed Diet:: As Tolerated Discharge Orders Discharge Orders: Discharge Order (Routine); Ordered 07/02/25 Ordered By: Timothy Barrientos DS: Summary Time Spent with Patient providing and/or coordinating discharge services: Less than 30 minutes Status at Discharge Functional status at discharge: uses cane/walker Overall status at discharge: patient is progressing back to baseline Mental Status: mental status grossly normal Speech and Movement: speech and movement normal Mood: congruent mood Affect: normal affect Quality:SDOH Health Related Social Needs: Health related social needs daily activities lonely/isolated Health related social needs details SNIF Health related social needs details: SNIF Exam Narrative Exam Narrative: General: This is a well-nourished man in no distress HEENT: Normocephalic, atraumatic CV: RRR Resp: CTAB Abd: soft, NTND, +NBS MSK: left leg incision sites c/d/i, appropriately tender, no edema/ecchymoses/erythema Neuro: Awake, alert, no focal deficits Psych Mental Status: mental status grossly normal Speech and Movement: speech and movement normal Mood: congruent mood Affect: normal affect DS: Data Vitals/I&O Vitals and I&O: Vital Signs Temperature 36.6 C 07/02/25 07:07 Temperature Source Temporal Artery Scan 07/02/25 07:07 Pulse 75 07/02/25 07:07 Pulse 70 06/27/25 17:01 Respiratory Rate 18 07/02/25 07:07 Respiratory Effort Normal 06/27/25 11:50 Respiratory Depth Normal 06/27/25 11:50 Respiratory Pattern Normal 06/27/25 11:50 Blood Pressure 121/71 07/02/25 07:07 Blood Pressure Mean 87 07/02/25 07:07 Pulse Oximetry 96 07/02/25 07:07 Respiratory End-tidal CO2 21 06/27/25 16:50 Oxygen Delivery Method Room Air 07/02/25 07:07 Oxygen Flow Rate 0 07/02/25 07:07 Pain Level 5 07/02/25 07:30 Comment refused pt wants to sleep 07/02/25 03:36 Intake & Output 07/01/25 07/01/25 07/02/25 11:59 23:59 11:59 Intake Total 220 / 220 Output Total 300 / 675 375 / 675 500 / 500 Balance -300 / -455 -155 / -455 -500 / -500 Intake: Oral 220 / 220 Output: Urine 300 / 675 375 / 675 500 / 500 Other: Urine Color Yellow Yellow Straw Urine Appearance Clear Urine Odor Normal None Strong PFSH All Active Problems (Updated 06/28/25 @ 09:19 by Jimbo Montero MD) Osteoporosis (Chronic) Closed intertrochanteric fracture of left femur (Acute) Anemia due to blood loss (Acute) Depression (Chronic) Advanced care planning/counseling discussion (Acute) Palliative care patient (Acute) CKD (chronic kidney disease) stage 3, GFR 30-59 ml/min (Acute) Frequent falls (Acute) Chronic anticoagulation (Acute) Recurrent gastrointestinal hemorrhage (Acute) Hiatal hernia (Chronic) Gastric ulcer (Acute) CAD (coronary artery disease), k[place] coronary artery (Chronic) NSTEMI. Stent placed 01/29/2024 [facility] Acute blood loss anemia (Chronic) Acute upper GI bleed (Acute) Closed hip fracture (Acute) Medical History BPH (benign prostatic hyperplasia) Hyperlipidemia Social History Smoking/Tobacco Use Status: Never Smoking risk assessment performed?: Yes Alcohol Intake: never Drug use: Never Substance use type: does not use [facility] Do you feel safe at home: Yes Do you feel safe in your relationship?: Yes Time Spent with Patient Time Spent with Patient: <45 minutes Time was spent: preparing to see the patient(eg.review tests), obtaining and/or reviewing separately otained hiistory, ordering medications,tests, procedures, referring, communicating with other health medicare insurance specialist, indepentently interpreting results, counseling the patient and care coordination
--- NOTE | 2025-07-02 10:11 | PTTR_ITS ---
PT Notes Visit Reasons: Left intertrochanteric fracture Inpatient Physical Therapy Treatment Note [facility] Date: 07/02/2025 PRECAUTIONS:WBAT LLE SUBJECTIVE: Pt reports his pain is with hip flexion OBJECTIVE:Pt presented semireclined in bed patient was premedicated 2 hours prior to session? PAIN: supine with meds 3/10 VITALS: ?Monitored by nursing Therapeutic Activities ([id number][]): Direct one-on-one instruction in dynamic activities to improve functional performance. ? BED MOBILITY/TRANSFERS? Rolling L/R: mod A Supine-sit: mod A of 1? Sit-stand: min A of 2 x 3 trials ? Stand-sit: min A of 2 x 3 trials ? Bed-Chair: Min assist of 2 with FWW and increased time patient with increase d pain noted during advancement of left lower extremity/hip flexion ? Patient tolerated stand at FW with contact-guard/min assist of 1 for 45 seconds x 1, 3 minutes x 1, 1.5-minute x 1 Provided skilled cues and instruction on performance and technique nabil sanders. ? ASSESSMENT:?Pt benefited from premedication for OOB tasks. He was able to assist with bed mobility and transfers sit to/from stand from an elevated bed height of 26 inches and BUE on FWW that was stabilized bt PT and REGENERATION OPERATOR Hardik. Pt was unable to achiev stand by pushing up from bed. Patient with difficulty performing step turn transfer with FWW toward the left as he had difficulty advancing left lower extremity with increased pain with flexion motion. Patient may have less discomfort with transfer toward the right will attempt next session. Pt would benefit from skilled PT within SNF to return to his PLOF ambulating with FWW or pushing his w/c from behind. Pt status discussed with Dr Montero. PLAN: Cont per POC with supine exercises and progress with transfers as pt is able and willing. TREATMENT CODE/TIME: First session [id number]/ [id number] DISCHARGE RECOMMENDATION: Return to SNF with skilled PT
== END 2025-07-02 10:05 | disposition skilled nursing facility (03) | DRG 482 ==
LOC: ER 10:52 → MS 11:40
PROVIDERS: Student in an Organized Health Care Education/Training Program; Admitting Provider Family Medicine; Emergency Provider Student in an Organized Health Care Education/Training Program; PCP Nurse Practitioner Family; Responsible Provider Family Medicine; Visit Provider Family Medicine
PROC: 0QS706Z Reposition Left Upper Femur with Intramedullary Internal Fixation Device, Open Approach (ICD-10-PCS; CPT 27245; principal; 2025-06-27 14:00)
DX: S72.142A Displaced intertrochanteric fracture of left femur, initial encounter for closed fracture (principal); I25.10 Atherosclerotic heart disease of native coronary artery without angina pectoris; F32.A Depression, unspecified; N18.31 Chronic kidney disease, stage 3a; R29.6 Repeated falls; M81.0 Age-related osteoporosis without current pathological fracture; D50.0 Iron deficiency anemia secondary to blood loss (chronic); Z79.01 Long term (current) use of anticoagulants; K44.9 Diaphragmatic hernia without obstruction or gangrene; K25.9 Gastric ulcer, unspecified as acute or chronic, without hemorrhage or perforation; E78.5 Hyperlipidemia, unspecified; N40.0 Benign prostatic hyperplasia without lower urinary tract symptoms; G89.11 Acute pain due to trauma; M25.552 Pain in left hip; W18.39XA Other fall on same level, initial encounter; Y92.129 Unspecified place in nursing home as the place of occurrence of the external cause; I25.2 Old myocardial infarction; E55.9 Vitamin D deficiency, unspecified
CPT/HCPCS: 27245; 00123; 36415; 64447; 64450; 73552; 80048; 80053; 82306; 85027; 86850; 86900; 86901; 97110; 97161; 97530; 99222; 99285; 72170; 73501; 83735; 85025; 99223; 99232; 99233; 99238; J0131; J0665; J0666; J0690; J1100; J2371; J2405; J2704; J3010; J3489

== ENCOUNTER 2025-07-17 17:51 | Outpatient (REF) | payer MEDICARE, SELFPAY ==
[2025-07-17 18:36] LABS: Abs Immature Grans 0.05 10^3/uL (0.0-0.06); HCT 31.9 % (40.0-50.0); HGB 9.3 g/dL (13.5-17.5); Immature Grans % 0.6 %; MCH 26.1 pg (27.0-33.0); MCHC 29.2 % (32.0-36.0); MCV 90 fL (80-95); MPV 11.0 fL (8.0-11.0); Platelet Count 428 10^3/uL (130-400); RBC 3.56 10^6/uL (4.36-5.78); RDW 15.1 % (11.8-14.1); RDW-SD 50.1 fL; WBC 8.41 10^3/uL (4.4-10.8)
[2025-07-17 19:06] LABS: Iron 24 ug/dL (65-175)
[2025-07-17 19:09] LABS: ALT 16 U/L (16-63); AST 15 U/L (15-37); Albumin 2.9 g/dL (3.4-5.0); Alkaline Phosphatase 149 U/L (46-116); Anion Gap 12.4 mmol/L (3-11); BUN 49 mg/dL (7-18); Bilirubin, Total 0.3 mg/dL (0.2-1.0); CO2 21.6 mmol/L (21.0-32.0); Calcium 8.0 mg/dL (8.5-10.1); Chloride 107 mmol/L (98-107); Estimated GFR 27.83 (mL/min/1.73m2); Ferritin 112 ng/mL (26-388); Glucose 104 mg/dL (74-106); Potassium 4.8 mmol/L (3.5-5.1); Sodium 141 mmol/L (136-145); TSH (W/Ref FT4) 2.12 uIU/mL (0.36-3.74); Total Protein 6.2 g/dL (6.4-8.2)
== END 2025-07-17 17:52 | disposition home or self-care (01) ==
LOC: LBN 17:51
PROVIDERS: PCP Nurse Practitioner Family; Visit Provider Nurse Practitioner Adult Health
DX: N40.1 Benign prostatic hyperplasia with lower urinary tract symptoms (principal)
CPT/HCPCS: 80053; 84402; 84403; 82728; 83540; 84443; 85025

== ENCOUNTER 2025-07-23 11:13 | Outpatient (REF) | payer MEDICARE, SELFPAY | END 2025-07-23 11:14 | disposition home or self-care (01) | LOC: LBN 11:13 | PROVIDERS: PCP Nurse Practitioner Family; Visit Provider Nurse Practitioner Adult Health | DX: N40.1 Benign prostatic hyperplasia with lower urinary tract symptoms (principal) | CPT/HCPCS: 84403 ==

== ENCOUNTER 2025-07-31 11:35 | Outpatient (REF) | payer MEDICARE, SELFPAY ==
[2025-07-31 13:04] LABS: Glucose 500 mg/dL (Negative)
[2025-07-31 13:16] LABS: RBC 0-2 HPF (0-2); WBC 0-2 HPF (0-5)
== END 2025-07-31 11:36 | disposition home or self-care (01) ==
LOC: LBN 11:35
PROVIDERS: PCP Nurse Practitioner Family; Visit Provider Nurse Practitioner Adult Health
DX: Z87.440 Personal history of urinary (tract) infections (principal)
CPT/HCPCS: 87077; 81003; 81015; 87086; 87186

== ENCOUNTER 2025-08-06 18:50 | Inpatient (IN) | payer MEDICARE, SELFPAY ==
[2025-08-06] VITALS (76 sets, daily range): BP systolic 117–147; BP diastolic 76–96; PULSE 60–93; RESP 13–26; TEMP 36.5–36.6; O2SAT 96–99
--- NOTE | 2025-08-06 19:24 | DI.RAD_ITS ---
Exam(s) XR CHEST 1V IN DI DEPT EXAM: XR CHEST 1V IN DI DEPT CLINICAL HISTORY: infection search TECHNIQUE: 2D digital imaging was performed. COMPARISON: CT CT ABDOMEN PELVIS WO from 08/06/2025 FINDINGS: A hiatal hernia is noted. LUNGS: Clear. No pleural abnormality seen. HEART: Normal size. Artery stent. AORTA: Normal diameter. BONES: Unremarkable for age. Soft tissues: Unremarkable. IMPRESSION: No acute findings. The preliminary [facility] report was reviewed. DATA REPOSITORY: RADIATION DOSE DELIVERED:
--- NOTE | 2025-08-06 19:32 | W.ED.GENAD ---
Discharge Plan Disposition Patient Disposition: Admit to [facility] Condition: Stable Discharge Details Clinical Impression: Constipation, Acute delirium Primary Care Provider: Evelin Wise ED Provider: Christiano Maguire Home Meds and New Rx's Prescriptions: New erythromycin 5 mg/gram (0.5 %) ointment 0.5 inch ophthalmic (eye) QID Qty: 3.5 0RF Continued acetaminophen 325 mg capsule See Rx Instructions PO Q6H PRN Rx Instructions: 1 GM Q 6h PRN orally every 6 hours PRN; every 5 hours as needed for mild pain diazepam 5 mg tablet 5 mg PO QHS ondansetron HCl 4 mg tablet 4 mg PO Q6H PRN albuterol sulfate 90 mcg/actuation aero powdr breath act w/sensor 2 inh inhalation Q4H PRN (Reason: shortness of breath or wheezing) Qty: 1 0RF valsartan 40 mg tablet 20 mg PO BID ferrous gluconate 324 mg (38 mg iron) tablet 324 mg PO DAILY carvedilol 3.125 mg tablet 3.125 mg PO BID Rx Instructions: must administer with a meal/food sulfamethoxazole-trimethoprim [Bactrim DS] 800-160 mg tablet 1 tab PO BID Rx Instructions: END DATE 08/13 pantoprazole 40 mg Tablet,Delayed Release (Dr/Ec) 40 mg PO DAILY rosuvastatin 20 mg tablet 20 mg PO DAILY tamsulosin 0.4 mg capsule 0.4 mg PO DAILY venlafaxine 150 mg capsule,extended release 24hr 150 mg PO DAILY Patient Comments: take with 75mg venlafaxine for total of 225mg venlafaxine 75 mg tablet 75 mg PO DAILY aspirin 81 mg tablet,chewable 81 mg PO DAILY carvedilol 6.25 mg tablet 6.25 mg PO BID Rx Instructions: must administer with a meal/food empagliflozin 10 mg tablet 10 mg PO DAILY finasteride 5 mg tablet 5 mg PO DAILY magnesium hydroxide [Milk of Magnesia] 400 mg/5 mL suspension 30 ml PO DAILY PRN Rx Instructions: Give 30 ml by mouth every 24 hours as needed for constipation give at bedtime if no BM in 3 days. prednisolone acetate 1 % drops,suspension 1 drp ophthalmic (eye) DAILY Rx Instructions: 1 drop in right eye one time per day for eye pain. brinzolamide 1 % drops,suspension 1 drp ophthalmic (eye) TID Rx Instructions: Left Eye only simethicone [Gas Relief (simethicone)] 125 mg capsule 125 mg PO DAILY PRN trazodone 150 mg tablet 150 mg PO QHS cholecalciferol (vitamin D3) 125 mcg (5,000 unit) capsule 5,000 unit PO DAILY docusate sodium 100 mg capsule 100 mg PO DAILY PRN bisacodyl [Dulcolax (bisacodyl)] 10 mg suppository 10 mg ME DAILY PRN glucagon 1 mg kit 1 mg IM PRN dextrose [Glucose Gel] 40 % gel 10 g PO Q15M PRN Rx Instructions: until symptoms of low blood sugar are controlled cholecalciferol (vitamin D3) 25 mcg (1,000 unit) Tablet 1,000 unit PO DAILY Qty: 90 0RF HPI General Date/Time Provider Initiated Documentation: 08/06/25 18:56. HPI Narrative: 80 year-old male presents to ED today by EMS with a chief complaint of sent over from [facility] for increased confusion, talking to himself, possible hallucinations/delerium with onset over the past couple days. Quality described as feels he may have some burning with urinating, mild abdominal discomfort, denies chest pain, shortness of breath, no radiation to confusion per patient, he is talking to himself with his eyes closed but appropriately stops these mumblings to appropriately answer questions. Severity is described as mild to moderate. Palliating factors include nothing specific. Provoking factors include nothing specific. Patient not anticoagulated. Related Data Home Medications ?Medication ?Instructions ?Recorded ?Confirmed aspirin 81 mg chewable tablet 81 mg PO DAILY 02/19/24 08/06/25 carvedilol 6.25 mg tablet 6.25 mg PO BID 02/19/24 08/06/25 empagliflozin 10 mg tablet 10 mg PO DAILY 02/19/24 08/06/25 finasteride 5 mg tablet 5 mg PO DAILY 02/19/24 08/06/25 magnesium hydroxide 400 mg/5 mL 30 ml PO DAILY PRN 02/19/24 08/06/25 oral suspension (Milk of Magnesia) prednisolone acetate 1 % eye 1 drp ophthalmic (eye) DAILY 02/19/24 08/06/25 drops,suspension rosuvastatin 20 mg tablet 20 mg PO DAILY 02/19/24 08/06/25 tamsulosin 0.4 mg capsule 0.4 mg PO DAILY 02/19/24 08/06/25 venlafaxine 150 mg 150 mg PO DAILY 02/19/24 08/06/25 capsule,extended release 24 hr venlafaxine 75 mg tablet 75 mg PO DAILY 02/19/24 08/06/25 acetaminophen 325 mg capsule See Rx Instructions PO Q6H PRN 03/21/24 08/06/25 brinzolamide 1 % eye 1 drp ophthalmic (eye) TID 05/07/24 08/06/25 drops,suspension ferrous gluconate 324 mg (38 mg 324 mg PO DAILY 08/22/24 08/06/25 iron) tablet valsartan 40 mg tablet 20 mg PO BID 08/22/24 08/06/25 albuterol sulfate 90 mcg/actuation 2 inh inhalation Q4H PRN shortness 04/03/25 08/06/25 breath activated powder of breath or wheezing #1 ea inhaler,sensor diazepam 5 mg tablet 5 mg PO QHS 04/03/25 08/06/25 ondansetron HCl 4 mg tablet 4 mg PO Q6H PRN 04/03/25 08/06/25 bisacodyl 10 mg rectal suppository 10 mg ME DAILY PRN 06/27/25 08/06/25 (Dulcolax (bisacodyl)) cholecalciferol (vitamin D3) 125 5,000 unit PO DAILY 06/27/25 08/06/25 mcg (5,000 unit) capsule dextrose 40 % oral gel (Glucose 10 g PO Q15M PRN 06/27/25 08/06/25 Gel) docusate sodium 100 mg capsule 100 mg PO DAILY PRN 06/27/25 08/06/25 glucagon 1 mg injection kit 1 mg IM PRN 06/27/25 08/06/25 simethicone 125 mg capsule (Gas 125 mg PO DAILY PRN 06/27/25 08/06/25 Relief (simethicone)) trazodone 150 mg tablet 150 mg PO QHS 06/27/25 08/06/25 cholecalciferol (vitamin D3) 25 1,000 unit PO DAILY #90 tabs 06/30/25 08/06/25 mcg (1,000 unit) tablet carvedilol 3.125 mg tablet 3.125 mg PO BID 08/06/25 08/06/25 erythromycin 5 mg/gram (0.5 %) eye 0.5 inch ophthalmic (eye) QID #3.5 08/06/25 ointment grams pantoprazole 40 mg tablet,delayed 40 mg PO DAILY 08/06/25 08/06/25 release sulfamethoxazole 800 1 tab PO BID 08/06/25 08/06/25 mg-trimethoprim 160 mg tablet (Bactrim DS) Previous Rx's ?Medication ?Instructions ?Recorded albuterol sulfate 90 mcg/actuation 2 inh inhalation Q4H PRN shortness 04/03/25 breath activated powder of breath or wheezing #1 ea inhaler,sensor cholecalciferol (vitamin D3) 25 1,000 unit PO DAILY #90 tabs 06/30/25 mcg (1,000 unit) tablet erythromycin 5 mg/gram (0.5 %) eye 0.5 inch ophthalmic (eye) QID #3.5 08/06/25 ointment grams Allergies Allergy/AdvReac Type Severity Reaction Status Date / Time clindamycin Allergy Unknown Anaphylaxis Verified 08/06/25 20:10 lincomycin Allergy Unknown Anaphylaxis Verified 08/06/25 20:10 Penicillins Allergy Unknown Anaphylaxis Verified 08/06/25 20:10 Fish Allergy Unknown Anaphylaxis Uncoded 08/06/25 20:10 Zyrtec Allergy Unknown Dizziness/L Uncoded 08/06/25 20:10 ighthead General Stated Complaint: AMS/LOC CATIE: 3 Review of Systems All systems reviewed & are unremarkable except as noted in HPI and below Exam Narrative Exam Narrative: GENERAL APPEARANCE: Frail, non-toxic, awake and talking to himself and hallucinations, atraumatic, moderate acute distress. SKIN: Warm, pale, dry, intact, without rashes/lesions/ulcerations. HEAD: Normocephalic, atraumatic, normal hair distribution for gender/age. EYES: Normal conjunctiva, mild exudate on R lid/lashes, EOMS intact without nystagmus ENT: Nares patent, no circumoral cyanosis, no facial swelling NECK: Supple, trachea midline, painless cervical ROM. LUNGS/CHEST: Non-labored respirations, normal A/P diameter, symmetrical expansion, no chest wall deformity HEART (CV/PV): Regular rate and rhythm without murmur, no peripheral edema, no JVD. ABDOMEN: Soft, non-distended, no guarding, suprapubic discomfort. MSK: Normal ROM, no swelling/deformity to bilateral UEs or LEs, moving all extremities without weakness, no cyanosis, spine midline without tenderness, normal curvature. NEURO: Mental Status AAOx4 - alert to person, place, time- talking to himself No facial droop, no forehead involvement Motor: No focal weakness - strength 5/5 in bilateral UEs and LEs, proximal and distal, symmetric. Sensory: sensation intact to light touch globally. Gait NT. PSYCH: euthymic, cooperative, pleasant, inappropriate speech, responding to things that aren't there. Course Vital Signs Vital signs: Vital Signs Temperature 36.5 C 08/06/25 18:58 Pulse 70 08/06/25 18:58 Respiratory Rate 19 08/06/25 18:58 Blood Pressure 147/96 H 08/06/25 18:58 Pulse Oximetry 97 08/06/25 18:58 Temperature 36.6 C 08/06/25 19:16 Temperature Source Temporal Artery Scan 08/06/25 19:16 Pulse 78 08/06/25 19:16 Respiratory Rate 19 08/06/25 19:16 Respiratory Effort Normal 08/06/25 19:16 Respiratory Depth Normal 08/06/25 19:16 Respiratory Pattern Normal 08/06/25 19:16 Blood Pressure 147/96 H 08/06/25 18:58 Blood Pressure Position Sitting 08/06/25 18:58 Pulse Oximetry 98 08/06/25 19:16 Oxygen Delivery Method Room Air 08/06/25 19:16 Oxygen Flow Rate 0 08/06/25 18:58 Pain Level 0 08/06/25 19:16 Lab/Test Results Lab/Test Results: 08/06/25 19:24 Blood Blood Culture - Pending 08/06/25 19:24 Blood Blood Culture - Pending Medical Decision Making This dictation utilizes [id number] dictation software and may contain unedited grammatical errors. 80 year-old male presents to ED today by EMS with a chief complaint of sent over from [facility] for increased confusion, talking to himself, possible hallucinations/delerium with onset over the past couple days. Quality described as feels he may have some burning with urinating, mild abdominal discomfort, denies chest pain, shortness of breath, no radiation to confusion per patient, he is talking to himself with his eyes closed but appropriately stops these mumblings to appropriately answer questions. Severity is described as mild to moderate. Palliating factors include nothing specific. Provoking factors include nothing specific. Patients' medical history: BPH, hyperlipidemia, CKD stage III, palliative care patient, CAD with history of NSTEMI and stent placement, history of GI bleeding. Family and social history: [place] [facility], denies EtOH or drug use, eats normal diet. Pertinent exam findings / vital signs include suprapubic distention, benign cardiopulmonary exam, answering questions appropriately, some scant clear discharge at the right thigh consistent with possible conjunctivitis, moving all extremities without issue. Differential / pathologies of concern include UTI, hydronephrosis or kidney stone, pneumonia, less likely sepsis, debility, dehydration. Diagnostic studies of: -CBC, CMP, lipase, lactate, ammonia, CK, troponin, CT ABD/pelvis without contrast, x-ray chest, urinalysis, blood cultures. - CBC without leukocytosis, stable chronic anemia at 11.0, increased absolute neutrophil count, increased monocytes - CMP shows ROGER with creatinine 2.5 appears his baseline is around 1.9 - No other actionable abnormality on labs with a negative ammonia, normal lipase, negative CK, normal creatinine - CT shows extensive stool burden - Urinalysis shows noninfected urine - X-ray chest shows no acute pathology Interventions of: - Ordered Colace, PEG 3350, soapsuds enema and Fleet enema, consulted with hospitalist Dr. Jordan at 2250 accepted for overnight observation while we reassess his delirium in the morning he is prescribed Valium this could be contributing. ED Course/Assessment/Plan: 80-year-old male presents by EMS from the rehab facility across the street, they state he has been talking to himself and having hallucinations and delirium for a few days he endorses abdominal pain, he answers all questions appropriately but when not prompted he is speaking to things that are not there and rambling on with unintelligible speech, he has significant suprapubic distention, CT shows extensive constipation, he likely has polypharmacy but his dementia should be evaluated upon awakening in the morning, he is not on any dementia medications and is not in his history list for our facility, I did discuss this case with hospitalist Dr. Jordan and ordered all appropriate laxatives to deal with his stool burden. Findings not consistent with sepsis, pneumonia, abdominal perforation or SBO, severe electrolyte derangement. Disposition of Constipation, Acute Delerium. Patient verbalized understanding of the plan and return to ED criteria and engaged in shared decision making. Medical Records Medical records reviewed: Yes I reviewed the patient's medical records. Imaging Data Radiologic Study: Attestation: I personally reviewed and interpreted this imaging study as follows: Imaging: X-Ray Radiologist's impression: Exam: XR Chest Exam date and time: 08/06/2025 9:16 PM Age: 80 years old Clinical indication: Other: Infection search TECHNIQUE: Imaging protocol: Radiologic exam of the chest. Views: 1 view. COMPARISON: CT ABDOMEN PELVIS WO 08/06/2025 8:57 PM FINDINGS: Lungs: Unremarkable. No consolidation. Pleural spaces: Unremarkable. No pleural effusion. No pneumothorax. Heart/Mediastinum: Unremarkable. No cardiomegaly. Bones/joints: Unremarkable. IMPRESSION: No acute findings. Dictated and Authenticated by: Kenroy Roman MD. Radiologic Study #2: Attestation: I personally reviewed and interpreted this imaging study as follows: Imaging: CT Scan Radiologist's impression: Exam: CT Abdomen And Pelvis Without Contrast Exam date and time: 08/06/2025 8:57 PM Age: 80 years old Clinical indication: Other: Infection search, ? UTI; Prior surgery; Surgery date: 6+ months; Surgery type: Hip replacement TECHNIQUE: Imaging protocol: Computed tomography of the abdomen and pelvis without contrast. Radiation optimization: All CT scans at this facility use at least one of these dose optimization techniques: automated exposure control; mA and/or kV adjustment per patient size (includes targeted exams where dose is matched to clinical indication); or iterative reconstruction. COMPARISON: CT PELVIC WO 02/20/2024 4:25 AM FINDINGS: Lungs: 5 mm nodule right lower lobe series 34. 3 mm nodule at the lingula series . Coronary arteries: Coronary artery calcifications. Diaphragm: Moderate hiatal hernia. Liver: Normal. No mass. Gallbladder and biliary ducts: Normal. No calcified stones. No ductal dilation. Pancreas: Normal. No ductal dilation. Spleen: Normal. No splenomegaly. Adrenal glands: Normal. No mass. Kidneys and ureters: Calcification/stone right renal pelvis. Scarring and cortical thinning both kidneys left greater than right. No hydronephrosis. No ureteral stones. Stomach and bowel: Colonic diverticula present. No evidence of acute diverticulitis at this time. Above average stool throughout the colon with the rectosigmoid distended up to 9 cm. No evidence of intestinal perforation or obstruction. Appendix: No evidence of appendicitis. Intraperitoneal space: Unremarkable. No free air. No significant fluid collection. Vasculature: Aorta demonstrates mild atherosclerotic calcification. No abdominal aortic aneurysm. Lymph nodes: Unremarkable. No enlarged lymph nodes. Urinary bladder: Unremarkable as visualized. Reproductive: Unremarkable as visualized. Bones/joints: Previous right hip replacement and left hip fracture repair. Old compression fracture L1. Soft tissues: Unremarkable. IMPRESSION: Above average stool throughout the colon with the rectosigmoid distended up to 9 cm. Dictated and Authenticated by: Kenroy Roman MD. Lab Data Lab results reviewed: Yes I reviewed the patient's lab results. Labs: 08/06/25 19:49 Blood Blood Culture - Pending 08/06/25 19:13 Blood Blood Culture - Pending Laboratory Tests Range/Units 08/06/25 08/06/25 19:13 19:49 WBC (4.4-10.8) 10^3/uL 10.69 RBC (4.36-5.78) 10^6/uL 4.20 L Hgb (13.5-17.5) g/dL 11.0 L Hct (40.0-50.0) % 35.8 L MCV (80-95) fL 85 MCH (27.0-33.0) pg 26.2 L MCHC (32.0-36.0) % 30.7 L RDW (11.8-14.1) % 15.5 H Plt Count (130-400) 10^3/uL 330 MPV (8.0-11.0) fL 11.2 H Immature Gran % % 0.7 Neutrophils % % 76.1 Lymphocytes % % 12.3 Monocytes % % 8.0 Eosinophils % % 2.1 Basophils % % 0.8 Nucleated RBC % (0.0-0.3) % 0.0 Absolute Neutrophils (1.2-6.7) 10^3/uL 8.14 H Absolute Lymphocytes (1.2-3.4) 10^3/uL 1.31 Absolute Monocytes (0.1-0.8) 10^3/uL 0.85 H Absolute Eosinophils (0.0-0.7) 10^3/uL 0.22 Absolute Basophils (0.0-0.2) 10^3/uL 0.09 VBG Lactate (<or=2.0) mmol/L 1.1 Sodium (136-145) mmol/L 140 Potassium (3.5-5.1) mmol/L 4.3 Chloride (98-107) mmol/L 105 Carbon Dioxide (21.0-32.0) mmol/L 23.0 Anion Gap (3-11) mmol/L 12.0 H BUN (7-18) mg/dL 41 H Creatinine (0.70-1.30) mg/dL 2.5 H Est GFR (CKD-EPI 2020) (mL/min/1.73m2) 25.18 Glucose (74-106) mg/dL 114 H Calcium (8.5-10.1) mg/dL 8.6 Total Bilirubin (0.2-1.0) mg/dL 0.3 AST (15-37) U/L 11 L ALT (16-63) U/L 16 Alkaline Phosphatase (46-116) U/L 154 H Ammonia (11-32) umol/L < 10 L Creatine Kinase (39-308) U/L 64 Troponin I (<or=76) ng/L 19 Total Protein (6.4-8.2) g/dL 7.4 Albumin (3.4-5.0) g/dL 3.5 Lipase (<78) U/L 75 Quality:SDOH Health Related Social Needs: Health related social needs daily activities lonely/isolated Health related social needs details SNIF PFSH All Active Problems (Updated 08/06/25 @ 23:00 by LARISSA Purvis) Acute delirium (Acute) Constipation (Acute) Osteoporosis (Chronic) Anemia due to blood loss (Acute) Depression (Chronic) Advanced care planning/counseling discussion (Acute) Palliative care patient (Acute) CKD (chronic kidney disease) stage 3, GFR 30-59 ml/min (Acute) Frequent falls (Acute) Chronic anticoagulation (Acute) Recurrent gastrointestinal hemorrhage (Acute) Hiatal hernia (Chronic) Gastric ulcer (Acute) CAD (coronary artery disease), [place] coronary artery (Chronic) NSTEMI. Stent placed 01/29/2024 [facility] Acute blood loss anemia (Chronic) Acute upper GI bleed (Acute) Closed hip fracture (Acute) Medical History BPH (benign prostatic hyperplasia) Hyperlipidemia Social History Smoking/Tobacco Use Status: Never Smoking risk assessment performed?: Yes Alcohol Intake: never Drug use: Never Substance use type: does not use Housing: jail Do you feel safe at home: Yes Do you feel safe in your relationship?: Yes
[2025-08-06 19:39] LABS: Abs Immature Grans 0.08 10^3/uL (0.0-0.06); HCT 35.8 % (40.0-50.0); HGB 11.0 g/dL (13.5-17.5); Immature Grans % 0.7 %; MCH 26.2 pg (27.0-33.0); MCHC 30.7 % (32.0-36.0); MCV 85 fL (80-95); MPV 11.2 fL (8.0-11.0); Platelet Count 330 10^3/uL (130-400); RBC 4.20 10^6/uL (4.36-5.78); RDW 15.5 % (11.8-14.1); RDW-SD 48.0 fL; WBC 10.69 10^3/uL (4.4-10.8)
[2025-08-06 19:54] LABS: ALT 16 U/L (16-63); AST 11 U/L (15-37); Albumin 3.5 g/dL (3.4-5.0); Alkaline Phosphatase 154 U/L (46-116); Anion Gap 12.0 mmol/L (3-11); BUN 41 mg/dL (7-18); Bilirubin, Total 0.3 mg/dL (0.2-1.0); CO2 23.0 mmol/L (21.0-32.0); Calcium 8.6 mg/dL (8.5-10.1); Chloride 105 mmol/L (98-107); Estimated GFR 25.18 (mL/min/1.73m2); Glucose 114 mg/dL (74-106); Potassium 4.3 mmol/L (3.5-5.1); Sodium 140 mmol/L (136-145); Total Protein 7.4 g/dL (6.4-8.2)
[2025-08-06 19:56] LABS: Creatine Kinase 64 U/L (39-308); Lipase 75 U/L (<78); Troponin I 19 ng/L (<or=76)
[2025-08-06 20:14] LABS: Ammonia < 10 umol/L (11-32)
--- NOTE | 2025-08-06 21:09 | DI.CT_ITS ---
Exam(s) CT ABDOMEN PELVIS WO EXAM: CT ABDOMEN PELVIS WO CLINICAL HISTORY: infection search, ?UTI. TECHNIQUE: Imaging Protocol: Axial computed tomography images with coronal and sagittal reformatted images were created and reviewed. Oral: yes / no COMPARISON: No exams were available for comparison FINDINGS: Lung Bases: No acute findings. Hiatal hernia. Benign-appearing 5 millimeter nodule near the right fissure. Liver: Normal density. No suspicious mass. Gallbladder and biliary tract: No radiodense calculus or biliary dilation. Pancreas: Normal density. No abnormal calcifications or inflammatory process. Spleen: Normal. Kidneys: Multifocal bilateral renal scarring. Kidneys are somewhat atrophic, more so on the left. Small calcification upper pole right kidney. Small left renal cysts. No obstructive uropathy. No suspicious masses seen. Adrenal glands: No masses seen. Lymph nodes: Within normal limits. Vasculature: Abdominal aorta non-dilated. Soft tissues: Fluid in the right inguinal canal. Bladder: No wall thickening. No mass or calculi. Bowel: There is a large quantity of stool seen throughout the colon, particularly in the rectum which is distended up to nearly 10 cm. There is diverticulosis but no evidence of diverticulitis. The appendix appears normal. No obstruction or bowel wall thickening. Peritoneal cavity: No ascites. No focal collection. No mesenteric inflammatory response. Reproductive organs: Unremarkable. Bones: Right hip prosthesis. Left hip intramedullary aura. Old compression fracture of L1. Degenerative disc changes and facet degenerative changes in the spine. IMPRESSION: Large quantity of stool throughout the colon, particularly involving the rectum, consistent with constipation. Small nonobstructing stone at the upper pole of the right kidney. No hydronephrosis. Bilateral renal scarring and atrophy. The preliminary [facility] report was reviewed. RADIATION DOSE DELIVERED: 1,611.68mGy.cm Total DLP DATA REPOSITORY: All CT scans at this facility are submitted to the National Radiology Data Registry (NRDR) Dose Index Registry (DIR) with the [employer] ([employer]). RADIATION OPTIMIZATION: All CT scans at this facility use at least one of these dose optimization techniques: automated exposure control; mA and/or kV adjustment per patient size (includes targeted exams where dose is matched to clinical indication); or iterative reconstruction.
[2025-08-06 22:14] LABS: Glucose >=1000 mg/dL (Negative)
[2025-08-06 22:20] LABS: C & S Indicated? No; RBC 0-2 HPF (0-2)
--- NOTE | 2025-08-06 22:32 | DI.VRAD_ITS ---
PROCEDURE INFORMATION: Exam: CT Abdomen And Pelvis Without Contrast Exam date and time: 08/06/2025 8:57 PM Age: 80 years old Clinical indication: Other: Infection search, ? UTI; Prior surgery; Surgery date: 6+ months; Surgery type: Hip replacement TECHNIQUE: Imaging protocol: Computed tomography of the abdomen and pelvis without contrast. Radiation optimization: All CT scans at this facility use at least one of these dose optimization techniques: automated exposure control; mA and/or kV adjustment per patient size (includes targeted exams where dose is matched to clinical indication); or iterative reconstruction. COMPARISON: CT PELVIC WO 02/20/2024 4:25 AM FINDINGS: Lungs: 5 mm nodule right lower lobe series . 3 mm nodule at the lingula series . Coronary arteries: Coronary artery calcifications. Diaphragm: Moderate hiatal hernia. Liver: Normal. No mass. Gallbladder and biliary ducts: Normal. No calcified stones. No ductal dilation. Pancreas: Normal. No ductal dilation. Spleen: Normal. No splenomegaly. Adrenal glands: Normal. No mass. Kidneys and ureters: Calcification/stone right renal pelvis. Scarring and cortical thinning both kidneys left greater than right. No hydronephrosis. No ureteral stones. Stomach and bowel: Colonic diverticula present. No evidence of acute diverticulitis at this time. Above average stool throughout the colon with the rectosigmoid distended up to 9 cm. No evidence of intestinal perforation or obstruction. Appendix: No evidence of appendicitis. Intraperitoneal space: Unremarkable. No free air. No significant fluid collection. Vasculature: Aorta demonstrates mild atherosclerotic calcification. No abdominal aortic aneurysm. Lymph nodes: Unremarkable. No enlarged lymph nodes. Urinary bladder: Unremarkable as visualized. Reproductive: Unremarkable as visualized. Bones/joints: Previous right hip replacement and left hip fracture repair. Old compression fracture L1. Soft tissues: Unremarkable. IMPRESSION: Above average stool throughout the colon with the rectosigmoid distended up to 9 cm. Dictated and Authenticated by: Kenroy Roman MD. Orderin Ting Alvarado MD
--- NOTE | 2025-08-06 22:32 | DI.VRAD_ITS ---
PROCEDURE INFORMATION: Exam: XR Chest Exam date and time: 08/06/2025 9:16 PM Age: 80 years old Clinical indication: Other: Infection search TECHNIQUE: Imaging protocol: Radiologic exam of the chest. Views: 1 view. COMPARISON: CT ABDOMEN PELVIS WO 08/06/2025 8:57 PM FINDINGS: Lungs: Unremarkable. No consolidation. Pleural spaces: Unremarkable. No pleural effusion. No pneumothorax. Heart/Mediastinum: Unremarkable. No cardiomegaly. Bones/joints: Unremarkable. IMPRESSION: No acute findings. Dictated and Authenticated by: Kenroy Roman MD. Orderin Ting Alvarado MD
--- NOTE | 2025-08-06 23:04 | W.PM.HP.N ---
Date of service: 08/06/25 Time of Service: 23:04 Assessment and Plan Assessment and plan (1) Acute delirium: Start date: 08/06/25 Status: Acute Assessment and plan: This is an 80-year-old gentleman who resides in shelter who has had a UTI recently and mild delirium. He is chronically on Valium which will be held and will he will have more aggressive treatment of his UTI with IV Rocephin, IV hydration which will be short-term overnight with follow-up lab and mental status in the morning. He also has severe constipation which will be treated aggressively. He remains a full code though he is currently at the shelter with poor overall health and this should be rediscussed with palliative care. (2) UTI (urinary tract infection): Start date: 08/06/25 Status: Acute Assessment and plan: Patient been on treatment for UTI and this may not be effective. Continue to IV Rocephin and reculture urine upon admission. Urinalysis appeared improved and he does not have a fever or WBC but does have change in mental status. (3) CKD (chronic kidney disease): Status: Chronic Assessment and plan: This appears to be chronic and progressive with patient possibly having poor intake reason with his delusional state and slightly dehydrated. Gentle IV hydration with normal left-ventricular ejection fraction in February 2025 though he is on treatment for CHF. (4) Constipation: Start date: 08/06/25 Status: Acute Assessment and plan: Severe with aggressive treatment from above and below with cathartics and enemas. This appears to be secondary to prolonged illness and slow transit with no signs of obstruction. He will need to be on a better bowel regimen when he returns to the shelter. (5) BPH (benign prostatic hyperplasia): Assessment and plan: Continue outpatient medical therapy and straight cath if needed. Avoid Valadez catheter. (6) CAD (coronary artery disease), [place] coronary artery: Status: Chronic Assessment and plan: Continue outpatient medical therapy adjusting as needed. (7) Depression: Status: Chronic Assessment and plan: On medical therapy which will be continued. There is no history of delusions or psychosis. Also no history of dementia. This appears to be an acute decompensation and could be associated with recent infection though this is a dramatic change with overt psychosis. He will be continued on Valium since has been given in the shelter though they state it is for muscle spasm. He does appear quite anxious and is present psychotic state and has paranoia. Consider geriatric telepsychiatry. It is unlikely he is receiving illicit drugs but with the change of mental status, urine drug screen was performed. History of Present Illness History of Present Illness Chief Complaint: Visual hallucinations over the last few days on treatment for UTI. Narrative: This is an 80-year-old male patient who resides at the [facility] recently having a fractured hip and having chronic COPD being a permanent resident at that facility. He does have a history of coronary artery disease and is on treatment which appears to be for CHF though his last echocardiogram in February 2025 showed preserved left ventricular ejection fraction. He has recently had a UTI with culture was done outside of this facility. He was placed on Bactrim and remained on that when transferred for evaluation for increasing visual hallucinations in the last couple of days. They did not state that he has had a fever and they made no comment on whether he was eating and drinking well but the patient appears to be severely constipated by imaging in the ED. He answers questions but not always appropriately. He does not appear to be in acute distress. He does have a history of depression but not dementia. He does take finasteride and may have some BPH with bladder outlet obstruction. He also has CKD which appears stable. His urinalysis was not severely concentrated. Because of patient's delusions and recent visual hallucinations, he will be admitted for gentle IV hydration, aggressive treatment of his constipation and continuation of treatment of his UTI with Rocephin IV. He did not have fever or an elevated WBC but he does have change in mental status. He chronically is on Valium and this is unchanged though this could contribute to confusion and will be held during his hospitalization. PDMP was reviewed and does not show Valium or controlled substances being prescribed recently though this would not capture shelter prescriptions. He had previously been on Adderall and Valium. He is not presently on Adderall but nursing staff at the shelter states that he is on Valium for spasm. Urine drug screen will be performed. Urine culture was performed though urinalysis appeared normal, patient has been on Bactrim recently for UTI which may be contributing to his change in mental status. Patient is a full code. Review of Systems Narrative: 13 point review of system otherwise unrevealing or unobtainable with patient's psychotic state. PFSH All Active Problems CKD (chronic kidney disease) (Chronic) UTI (urinary tract infection) (Acute) Acute delirium (Acute) Constipation (Acute) Osteoporosis (Chronic) Anemia due to blood loss (Acute) Depression (Chronic) Advanced care planning/counseling discussion (Acute) Palliative care patient (Acute) CKD (chronic kidney disease) stage 3, GFR 30-59 ml/min (Acute) Frequent falls (Acute) Chronic anticoagulation (Acute) Recurrent gastrointestinal hemorrhage (Acute) Hiatal hernia (Chronic) Gastric ulcer (Acute) CAD (coronary artery disease), [place] coronary artery (Chronic) NSTEMI. Stent placed 01/29/2024 [facility] Acute blood loss anemia (Chronic) Acute upper GI bleed (Acute) Closed hip fracture (Acute) Medical History BPH (benign prostatic hyperplasia) Hyperlipidemia Social History Smoking/Tobacco Use Status: Never Smoking risk assessment performed?: Yes Alcohol Intake: never Drug use: Never Substance use type: does not use Housing: shelter Do you feel safe at home: Yes Do you feel safe in your relationship?: Yes Meds Allergies and Home Medications Allergies Allergy/AdvReac Type Severity Reaction Status Date / Time clindamycin Allergy Unknown Anaphylaxis Verified 08/06/25 20:10 lincomycin Allergy Unknown Anaphylaxis Verified 08/06/25 20:10 Penicillins Allergy Unknown Anaphylaxis Verified 08/06/25 20:10 Fish Allergy Unknown Anaphylaxis Uncoded 08/06/25 20:10 Zyrtec Allergy Unknown Dizziness/L Uncoded 08/06/25 20:10 ighthead Home Medications ?Medication ?Instructions ?Recorded ?Confirmed ?Type aspirin 81 mg chewable tablet 81 mg PO DAILY 02/19/24 08/06/25 History carvedilol 6.25 mg tablet 6.25 mg PO BID 02/19/24 08/06/25 History empagliflozin 10 mg tablet 10 mg PO DAILY 02/19/24 08/06/25 History finasteride 5 mg tablet 5 mg PO DAILY 02/19/24 08/06/25 History magnesium hydroxide 400 mg/5 mL 30 ml PO DAILY PRN 02/19/24 08/06/25 History oral suspension (Milk of Magnesia) prednisolone acetate 1 % eye 1 drp ophthalmic (eye) DAILY 02/19/24 08/06/25 History drops,suspension rosuvastatin 20 mg tablet 20 mg PO DAILY 02/19/24 08/06/25 History tamsulosin 0.4 mg capsule 0.4 mg PO DAILY 02/19/24 08/06/25 History venlafaxine 150 mg 150 mg PO DAILY 02/19/24 08/06/25 History capsule,extended release 24 hr venlafaxine 75 mg tablet 75 mg PO DAILY 02/19/24 08/06/25 History acetaminophen 325 mg capsule See Rx Instructions PO Q6H PRN 03/21/24 08/06/25 History brinzolamide 1 % eye 1 drp ophthalmic (eye) TID 05/07/24 08/06/25 History drops,suspension ferrous gluconate 324 mg (38 mg 324 mg PO DAILY 08/22/24 08/06/25 History iron) tablet valsartan 40 mg tablet 20 mg PO BID 08/22/24 08/06/25 History albuterol sulfate 90 mcg/actuation 2 inh inhalation Q4H PRN shortness 04/03/25 08/06/25 Rx breath activated powder of breath or wheezing #1 ea inhaler,sensor diazepam 5 mg tablet 5 mg PO QHS 04/03/25 08/06/25 History ondansetron HCl 4 mg tablet 4 mg PO Q6H PRN 04/03/25 08/06/25 History bisacodyl 10 mg rectal suppository 10 mg VT DAILY PRN 06/27/25 08/06/25 History (Dulcolax (bisacodyl)) cholecalciferol (vitamin D3) 125 5,000 unit PO DAILY 06/27/25 08/06/25 History mcg (5,000 unit) capsule dextrose 40 % oral gel (Glucose 10 g PO Q15M PRN 06/27/25 08/06/25 History Gel) docusate sodium 100 mg capsule 100 mg PO DAILY PRN 06/27/25 08/06/25 History glucagon 1 mg injection kit 1 mg IM PRN 06/27/25 08/06/25 History simethicone 125 mg capsule (Gas 125 mg PO DAILY PRN 06/27/25 08/06/25 History Relief (simethicone)) trazodone 150 mg tablet 150 mg PO QHS 06/27/25 08/06/25 History cholecalciferol (vitamin D3) 25 1,000 unit PO DAILY #90 tabs 06/30/25 08/06/25 Rx mcg (1,000 unit) tablet carvedilol 3.125 mg tablet 3.125 mg PO BID 08/06/25 08/06/25 History erythromycin 5 mg/gram (0.5 %) eye 0.5 inch ophthalmic (eye) QID #3.5 08/06/25 Rx ointment grams pantoprazole 40 mg tablet,delayed 40 mg PO DAILY 08/06/25 08/06/25 History release sulfamethoxazole 800 1 tab PO BID 08/06/25 08/06/25 History mg-trimethoprim 160 mg tablet (Bactrim DS) Exam Narrative Exam Narrative: General: Patient appears appropriate if not younger than his stated age, he is lying in bed with a hat pulled over the front of his face but does push it back for discussion. Eye contact is fair. He has a flattened affect and monotonous tone to his voice. He does not appear to be in acute distress. He is alert and oriented to person and place only he is verbalizing visual hallucinations and paranoid thoughts throughout the conversation. 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 He is seeing people and actions around the bed that are not happening. HEENT: Normocephalic, eyes with pupils equal and reactive light symmetric, extraocular movement intact and sclera anicteric. Oropharynx with slightly dry oral mucosa and poor dentition with carious and fractured teeth. Neck: Supple without JVD. Back: Stooped posture without CVA tenderness. Lungs: Fair aeration clear to auscultation percussion without focalizing rales or rhonchi. No expiratory wheeze. Heart: Regular rate and rhythm with no murmurs gallops appreciated. Abdomen: Normal contour, soft nontender to palpation with no palpable hepatosplenomegaly. Bowel sounds positive all quadrants. No guarding with deep palpation and no palpable masses though imaging does reveal quite significant stool load in the colon. Genitalia/rectal: Exam deferred. Extremities: Without clubbing, cyanosis or grossly pitting edema. Patient does have osteoarthritic deformities and decreased range of motion of his hips. Skin: Pale, warm and dry. Neuro: Cranial nerves II through XII grossly intact, no focalizing motor deficits the patient appears generally weak. No tremor. Psych: Patient is withdrawn with poor eye contact, he frequently states that he is seeing people in the room and is paranoid about me standing by his bedside as if I am potentially going to harm him. He expressed paranoid thoughts about these incidences. He has a labile affect and easily agitated. Mood is agitated. Remote and recent memory testing difficult with present altered mental status though remote memory seem to be more intact. Results Imaging Imaging Studies: Exam: CT Abdomen And Pelvis Without Contrast Exam date and time: 08/06/2025 8:57 PM Age: 80 years old Clinical indication: Other: Infection search, ? UTI; Prior surgery; Surgery date: 6+ months; Surgery type: Hip replacement COMPARISON: CT PELVIC WO 02/20/2024 4:25 AM FINDINGS: Lungs: 5 mm nodule right lower lobe series 34. 3 mm nodule at the lingula series . Coronary arteries: Coronary artery calcifications. Diaphragm: Moderate hiatal hernia. Liver: Normal. No mass. Gallbladder and biliary ducts: Normal. No calcified stones. No ductal dilation. Pancreas: Normal. No ductal dilation. Spleen: Normal. No splenomegaly. Adrenal glands: Normal. No mass. Kidneys and ureters: Calcification/stone right renal pelvis. Scarring and cortical thinning both kidneys left greater than right. No hydronephrosis. No ureteral stones. Stomach and bowel: Colonic diverticula present. No evidence of acute diverticulitis at this time. Above average stool throughout the colon with the rectosigmoid distended up to 9 cm. No evidence of intestinal perforation or obstruction. Appendix: No evidence of appendicitis. Intraperitoneal space: Unremarkable. No free air. No significant fluid collection. Vasculature: Aorta demonstrates mild atherosclerotic calcification. No abdominal aortic aneurysm. Lymph nodes: Unremarkable. No enlarged lymph nodes. Urinary bladder: Unremarkable as visualized. Reproductive: Unremarkable as visualized. Bones/joints: Previous right hip replacement and left hip fracture repair. Old compression fracture L1. Soft tissues: Unremarkable. IMPRESSION: Above average stool throughout the colon with the rectosigmoid distended up to 9 cm. Exam: XR Chest Exam date and time: 08/06/2025 9:16 PM Age: 80 years old Clinical indication: Other: Infection search TECHNIQUE: Imaging protocol: Radiologic exam of the chest. Views: 1 view. COMPARISON: CT ABDOMEN PELVIS WO 08/06/2025 8:57 PM FINDINGS: Lungs: Unremarkable. No consolidation. Pleural spaces: Unremarkable. No pleural effusion. No pneumothorax. Heart/Mediastinum: Unremarkable. No cardiomegaly. Bones/joints: Unremarkable. IMPRESSION: No acute findings. Labs 08/07/25 05:10 08/07/25 05:10 Labs: Laboratory Results - last 24 hr 08/06/25 08/06/25 08/06/25 19:13 19:49 21:20 WBC 10.69 RBC 4.20 L Hgb 11.0 L Hct 35.8 L MCV 85 MCH 26.2 L MCHC 30.7 L RDW 15.5 H Plt Count 330 MPV 11.2 H Immature Gran % 0.7 Neutrophils % 76.1 Lymphocytes % 12.3 Monocytes % 8.0 Eosinophils % 2.1 Basophils % 0.8 Nucleated RBC % 0.0 Absolute Neutrophils 8.14 H Absolute Lymphocytes 1.31 Absolute Monocytes 0.85 H Absolute Eosinophils 0.22 Absolute Basophils 0.09 VBG Lactate 1.1 Sodium 140 Potassium 4.3 Chloride 105 Carbon Dioxide 23.0 Anion Gap 12.0 H BUN 41 H Creatinine 2.5 H Est GFR (CKD-EPI 2020) 25.18 Glucose 114 H Calcium 8.6 Total Bilirubin 0.3 AST 11 L ALT 16 Alkaline Phosphatase 154 H Ammonia < 10 L Creatine Kinase 64 Troponin I 19 Total Protein 7.4 Albumin 3.5 Lipase 75 Urine Color Yellow Urine Clarity Clear Urine pH 5.0 Ur Specific [place] 1.015 Urine Protein 30 H Urine Ketones Negative Urine Blood Negative Urine Nitrite Negative Urine Bilirubin Negative Urine Urobilinogen 0.2 Ur Leukocyte Esterase Negative Urine RBC 0-2 Urine WBC 5-10 Ur Epithelial Cells Many Urine Crystals Few Amorphous Urine Bacteria Moderate Urine Casts Negative Urine Mucus Trace Ur Culture Indicated? No Urine Glucose >=1000 H Last Vital Signs Temp 36.6 C 08/06/25 19:16 Pulse 84 08/06/25 22:51 Resp 16 08/06/25 22:51 BP 117/89 08/06/25 22:46 Pulse Ox 99 08/06/25 22:51 Time Spent Time spent with Patient: >75 minutes Time was spent: preparing to see the patient(eg.review tests), obtaining and/or reviewing separately otained hiistory, ordering medications,tests, procedures, referring, communicating with other health care aide (Reviewed patient's case with nurse at shelter for recent events.), indepentently interpreting results and care coordination
[2025-08-06] MEDS: Polyethylene Glycol 3350 17 GM PACKET PO (23:06)
[2025-08-06] MEDS: Docusate Sodium 100 MG/10 ML CUP PO (23:06)
[2025-08-06] MEDS: Lidocaine 2% Jelly 6 ML SYR (23:08)
[2025-08-06] MEDS: Acetaminophen 325 MG TAB 650 MG PO (23:48)
[2025-08-07] VITALS (33 sets, daily range): BP systolic 118–169; BP diastolic 58–98; PULSE 69–83; RESP 14–22; TEMP 36.2–37.1; O2SAT 95–99
[2025-08-07 01:29] LABS: Cannabinoids THC Negative (Negative); METHADONE URINE SCREEN Negative (Negative)
[2025-08-07] MEDS: cefTRIAXone 1 GM/50 ML BAG IVPB (01:44)
[2025-08-07 06:00] LABS: HCT 34.5 % (40.0-50.0); HGB 10.6 g/dL (13.5-17.5); MCH 26.6 pg (27.0-33.0); MCHC 30.7 % (32.0-36.0); MCV 87 fL (80-95); MPV 10.9 fL (8.0-11.0); Platelet Count 311 10^3/uL (130-400); RBC 3.98 10^6/uL (4.36-5.78); RDW 15.5 % (11.8-14.1); RDW-SD 49.1 fL; WBC 11.59 10^3/uL (4.4-10.8)
[2025-08-07 06:11] LABS: ALT 10 U/L (16-63); AST 10 U/L (15-37); Albumin 3.2 g/dL (3.4-5.0); Alkaline Phosphatase 139 U/L (46-116); Anion Gap 10.9 mmol/L (3-11); BUN 40 mg/dL (7-18); Bilirubin, Total 0.3 mg/dL (0.2-1.0); CO2 20.1 mmol/L (21.0-32.0); Calcium 8.4 mg/dL (8.5-10.1); Chloride 108 mmol/L (98-107); Estimated GFR 29.36 (mL/min/1.73m2); Glucose 97 mg/dL (74-106); Magnesium 2.4 mg/dL (1.8-2.4); Potassium 4.5 mmol/L (3.5-5.1); Sodium 139 mmol/L (136-145); Total Protein 6.8 g/dL (6.4-8.2)
[2025-08-07 06:41] LABS: TSH (W/Ref FT4) 1.02 uIU/mL (0.36-3.74)
--- NOTE | 2025-08-07 08:06 | PDOC.CMIN ---
Date of service: 08/07/25 Time of Service: 08:06 Care Management Initial Assmt Initial Assessment Reason for Hospitalization: UTI with change in mental status Functional Status/Living Situation Patient Presentation: Humble presented to the ED last evening with increased confusion, talking to himself and possible hallucinations/delirium over the last few days. He also c/o some burning with urination. He was started on IV antibiotics and received 1L of NS. He was also noted to be constipated. Humble is a permanent resident at [facility] after suffering a left hip fracture in June. Humble was lying in bed when CM met with him today. He was very pleasant with CM, but did not know where he was. He stated that he likes living at [facility], but has only been there a few days. 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 also loves music Medications Medication Management: No Issues/Barriers identified Physical Functioning/Mobility Assistive Device: w/c and FWW Advance Directives Advance Directives: Do you have an Advance Directive: AD On File at [facility]: N 14, 07:29 Date Asked 08/06/25 08/06/25, 18:54 AD Date Reviewed COLST On File at [facility] Yes 02/20/24, 06:12 COLST Date Scanned 02/20/24 02/20/24, 06:12 Code Status Resuscitation Status Full Code Insurance Coverage/Financial Issues Insurance: Medicare Part A & B? Care Team Visit Care Team Role Provider Type Humble Lee MD [facility] STAFF PHYSICIAN Evelin Wise MD Primary Care Provider NON-[facility] STAFF PHYSICIAN LARISSA Purvis Emergency Provider [employer]ODUCTION SUPPORT ENGINEER Kenroy Jordan Admit Provider NON-[facility] STAFF PHYSICIAN Attending Provider Discharge Potential Discharge Needs: PT Evaluation and PCP F/U Appt Anticipated Barriers to Discharge: None Identified Patient/Family Education Needs: Review discharge instructions, discuss Ask Me Three Transportation: [facility] Transportation: Wheel chair van Plan: Anticipate that Humble will return to the [facility] once medically stable. He will f/u with the facility provider and continue per his plan of care. He will transport via [facility] wheelchair van. CM will continue to follow. Social Determinants of Health Screening Social Determinants of health last assessed in clinic: 08/07/25 Will the Patient Participate in the Screening?: Yes Do you worry about having a steady place to live?: no Problems where you live: no known problems In the past 12 months, have you had to go without electric, gas, oil or water in your home?: no 1. Within the past 12 months, we worried whether our food would run out before we got money to buy more.: Don't know/refused 2. Within the past 12 months, the food we bought just didn't last and we didn't have money to get more.: Don't know/refused Has lack of transportation kept you from medical appointments or from doing things needed for daily living?: no Has anyone in your life made you feel unsafe or unsupported?: no How hard is it for you to pay for the very basics like food, housing, medical care, and heating? Would you say it is:: Not hard at all Do you want help finding or keeping work or a job?: I do not need or want help If for any reason you need help with day-to-day activities such as bathing, preparing meals, shopping, managing finances, etc., do you get the help you need?: I don?t need any help How often do you feel lonely or isolated from those around you?: Never Do you speak a language other than Amharic at home?: No Does the patient want assistance with any of the above?: No PFSH All Active Problems (Updated 08/07/25 @ 15:26 by Humble Lee) DVT prophylaxis (Acute) CKD (chronic kidney disease) (Chronic) UTI (urinary tract infection) (Acute) Acute delirium (Acute) Constipation (Acute) Osteoporosis (Chronic) Anemia due to blood loss (Acute) Depression (Chronic) Advanced care planning/counseling discussion (Acute) Palliative care patient (Acute) CKD (chronic kidney disease) stage 3, GFR 30-59 ml/min (Acute) Frequent falls (Acute) Chronic anticoagulation (Acute) Recurrent gastrointestinal hemorrhage (Acute) Hiatal hernia (Chronic) Gastric ulcer (Acute) CAD (coronary artery disease), [place] coronary artery (Chronic) NSTEMI. Stent placed 01/29/2024 [facility] Acute blood loss anemia (Chronic) Acute upper GI bleed (Acute) Closed hip fracture (Acute) Medical History BPH (benign prostatic hyperplasia) Hyperlipidemia Social History Smoking/Tobacco Use Status: Never Smoking risk assessment performed?: Yes Alcohol Intake: never Drug use: Never Substance use type: does not use Housing: [facility] Do you feel safe at home: Yes Do you feel safe in your relationship?: Yes
[2025-08-07] MEDS: Venlafaxine 150 MG CAPCR PO (08:45)
[2025-08-07] MEDS: Carvedilol 3.125 MG TAB PO ×2 (08:45→20:35)
[2025-08-07] MEDS: Empaglifozin 10 MG TAB PO (08:45)
[2025-08-07] MEDS: Pantoprazole 40 MG TABCR PO (08:45)
[2025-08-07] MEDS: Enoxaparin 30 MG/0.3 ML SYR SC (08:46)
[2025-08-07] MEDS: Ferrous Gluconate 324 MG TAB PO (08:46)
[2025-08-07] MEDS: Venlafaxine 75 MG CAPCR PO (08:46)
[2025-08-07] MEDS: Docusate Sodium 100 MG CAP PO ×3 (08:46→20:34)
[2025-08-07] MEDS: Cholecalciferol (Vitamin D3) 1,000 UNIT TAB 1000 UNITS PO (08:46)
[2025-08-07] MEDS: Rosuvastatin 20 MG TAB PO (08:46)
[2025-08-07] MEDS: Finasteride 5 MG TAB PO (08:46)
[2025-08-07] MEDS: Aspirin 81 MG CHEW PO (08:46)
[2025-08-07] MEDS: Tamsulosin 0.4 MG CAPCR PO (08:46)
[2025-08-07 13:31] LABS: Cannabinoids THC Negative (Negative); METHADONE URINE SCREEN Negative (Negative)
--- NOTE | 2025-08-07 14:05 | CHAPLAIN ---
Partway through our conversation, I remembered meeting Humble the last time he was here, in June. 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 Humble sounded confused at times, telling me about two boys, six and eight, who were with him in the room. He talked about needing a order picker/assembler truck for this winter to get through the snow. Humble lives [place] and will return there when he's ready.
--- NOTE | 2025-08-07 15:12 | PGE_ITS ---
Date of Service Date of service: 08/07/25 Time of Service: 15:14 Assessment and Plan Assessment and plan (1) Acute delirium: Start date: 08/06/25 Status: Acute Assessment and plan: In setting of 5-6 weeks out from femur fracture with ongoing pain, also current UTI May be triggered by HS diazepam, also opiates in his system that is not on his list, need to get history from [facility]. Treating UTI as below. Treat constipation. Hold benzos/opioids Monitor mental status. (2) UTI (urinary tract infection): Start date: 08/06/25 Status: Acute Assessment and plan: Patient been on treatment for UTI with TMP/SMX. Culture growing klebsiella that should be sensitive to this, reculture pending. On ceftriaxone. (3) CKD (chronic kidney disease): Status: Chronic Assessment and plan: At recent baseline stage 4 CKD. Ths makes delerium related to polypharmacy more likely. (4) Constipation: Start date: 08/06/25 Status: Acute Assessment and plan: Severe with aggressive treatment from above and below with cathartics and enemas. No obstruction on imaging. Continue bowel regimen. He did have a stool 08/07 (5) BPH (benign prostatic hyperplasia): Assessment and plan: Continue outpatient medical therapy and straight cath if needed. Bladder scan to measure post-void. Avoid Valadez catheter. (6) CAD (coronary artery disease), [place] coronary artery: Status: Chronic Assessment and plan: Continue outpatient medical therapy. (7) Depression: Status: Chronic Assessment and plan: On medical therapy which will be continued. There is no history of delusions or psychosis. Also no history of dementia. This seems related to acute toxicity from medication or illness. No antipsychotic medcations for now. (8) DVT prophylaxis: Status: Acute Assessment and plan: enoxaparin Subjective Subjective Patient reports: no new complaints, tolerating a regular diet and voiding w/o difficulty; denies nausea, vomiting, shortness of breath or fever Interval history since last seen: He denies pain at rest this morning. He knows where he is, can give general history. He denies seeing/hearing things but he does mutter unintelligibly when not engaged. Exam Narrative Exam Narrative: Gen: Somnolent, with hat over eyes, but arouses and can have conversation. Oriented to self, place, day/month/year. HEENT: No icterus, left pupil mid sized and reactive, right eye glassy. MMM, OP benign LUNGS: CTAB, normal effort CV: RRR, no M/G/R. ABD: soft, NT/ND Ext: no c/c, trace alhaji LE edema. Objective Last Vital Signs Temp 36.9 C 08/07/25 15:10 Pulse 74 08/07/25 15:10 Resp 17 08/07/25 15:10 BP 118/71 08/07/25 15:10 Pulse Ox 95 08/07/25 15:10 Laboratory Results - last 24 hr 08/06/25 08/06/25 08/06/25 00:00 19:13 19:49 WBC 10.69 RBC 4.20 L Hgb 11.0 L Hct 35.8 L MCV 85 MCH 26.2 L MCHC 30.7 L RDW 15.5 H Plt Count 330 MPV 11.2 H Immature Gran % 0.7 Neutrophils % 76.1 Lymphocytes % 12.3 Monocytes % 8.0 Eosinophils % 2.1 Basophils % 0.8 Nucleated RBC % 0.0 Absolute Neutrophils 8.14 H Absolute Lymphocytes 1.31 Absolute Monocytes 0.85 H Absolute Eosinophils 0.22 Absolute Basophils 0.09 VBG Lactate 1.1 Sodium 140 Potassium 4.3 Chloride 105 Carbon Dioxide 23.0 Anion Gap 12.0 H BUN 41 H Creatinine 2.5 H Est GFR (CKD-EPI 2020) 25.18 Glucose 114 H Calcium 8.6 Magnesium Total Bilirubin 0.3 AST 11 L ALT 16 Alkaline Phosphatase 154 H Ammonia < 10 L Creatine Kinase 64 Troponin I 19 Total Protein 7.4 Albumin 3.5 Lipase 75 TSH Urine Color Urine Clarity Urine pH Ur Specific [place] Urine Protein Urine Ketones Urine Blood Urine Nitrite Urine Bilirubin Urine Urobilinogen Ur Leukocyte Esterase Urine RBC Urine WBC Ur Epithelial Cells Urine Crystals Urine Bacteria Urine Casts Urine Mucus Ur Culture Indicated? Urine Glucose Urine Opiates Screen Positive A Urine Methadone Screen Negative Ur Barbiturates Screen Negative Ur Tricyclics Screen Negative Ur Amphetamines Screen Negative U Benzodiazepines Scrn Positive A Urine Cocaine Screen Negative Ur THC Screen Negative 08/06/25 08/07/25 08/07/25 21:20 05:10 12:39 WBC 11.59 H RBC 3.98 L Hgb 10.6 L Hct 34.5 L MCV 87 MCH 26.6 L MCHC 30.7 L RDW 15.5 H Plt Count 311 MPV 10.9 Immature Gran % Neutrophils % Lymphocytes % Monocytes % Eosinophils % Basophils % Nucleated RBC % Absolute Neutrophils Absolute Lymphocytes Absolute Monocytes Absolute Eosinophils Absolute Basophils VBG Lactate Sodium 139 Potassium 4.5 Chloride 108 H Carbon Dioxide 20.1 L Anion Gap 10.9 BUN 40 H Creatinine 2.2 H Est GFR (CKD-EPI 2020) 29.36 Glucose 97 Calcium 8.4 L Magnesium 2.4 Total Bilirubin 0.3 AST 10 L ALT 10 L Alkaline Phosphatase 139 H Ammonia Creatine Kinase Troponin I Total Protein 6.8 Albumin 3.2 L Lipase TSH 1.02 Urine Color Yellow Urine Clarity Clear Urine pH 5.0 Ur Specific [place] 1.015 Urine Protein 30 H Urine Ketones Negative Urine Blood Negative Urine Nitrite Negative Urine Bilirubin Negative Urine Urobilinogen 0.2 Ur Leukocyte Esterase Negative Urine RBC 0-2 Urine WBC 5-10 Ur Epithelial Cells Many Urine Crystals Few Amorphous Urine Bacteria Moderate Urine Casts Negative Urine Mucus Trace Ur Culture Indicated? No Urine Glucose >=1000 H Urine Opiates Screen Positive A Urine Methadone Screen Negative Ur Barbiturates Screen Negative Ur Tricyclics Screen Negative Ur Amphetamines Screen Negative U Benzodiazepines Scrn Positive A Urine Cocaine Screen Negative Ur THC Screen Negative PAWSS Have you Been Recently Intoxicated or Drunk Within the Last 30 days?: No Have you Ever Experienced Previous Episodes of Alcohol Withdrawal?: Unable to Obtain Have you ever Experienced Withdrawal Seizures?: Unable to Obtain Have you ever Experienced Delirium Tremens(DT)s?: Unable to Obtain Have you ever undergone Alcohol Rehabilitation Treatment (i.e, inpt ot outpatient treatment programs)?: Unable to Obtain Have you ever Experienced Blackouts?: Unable to Obtain Have you ever Combined Alcohol with other Downers within the last 90 days?: Unable to Obtain Have you ever Combined Alcohol with any other Substance of Abuse during the last 90 days?: Unable to Obtain Positive Blood Alcohol level on Presentation? [PCS.BAL]: Unable to Obtain Evidence of Increased Autonomic Activity (i.e. HR>120, tremor, sweating, agitation, nausea)?: Unable to Obtain Result: 0 Time Spent with Patient Time Spent with Patient: 35-49 minutes Time was spent: preparing to see the patient(eg.review tests), obtaining and/or reviewing separately [facility], ordering medications,tests, procedures, referring, communicating with other health long term care pharmacist, indepentently interpreting results, counseling the patient and care coordination
[2025-08-07 16:47] LABS: COVID-19 PCR Negative (Negative); RSV PCR Negative (Negative)
--- NOTE | 2025-08-07 17:02 | NUR.NOTE ---
Nursing Note: Nursing staff entered the patient's room to change his soiled briefs. The patient refused nursing staff, stating I am an [place] citizen, I have my rights. Please leave! I explained to the patient that tex-hygiene is important to reduce infection, but patient still declined. I asked the patient that we will leave him alone for now but we will come back around 1800 to see if he changes his mind. This to which the patient agreed.
[2025-08-07] MEDS: traZODone 50 MG TAB 150 MG PO (20:34)
[2025-08-07] MEDS: Polyethylene Glycol 3350 17 GM PACKET PO (20:35)
[2025-08-07] MEDS: Normal Saline Flush 10 ML SYR IVP (20:38)
--- NOTE | 2025-08-07 21:50 | W.PC.ACHO ---
Registration Status: REG ER Primary Language: Preferred Language: ED Information & Data Chief Complaint AMS/LOC 08/06/25 19:32 Triage Note Pt BIBEMS w/ reported 08/06/25 18:58 multiple days of confusion/ delirium/hallucinations/ paranoia and hypotension via [facility]. Medical / Surgical History (Last Reviewed 08/06/25 @ 23:18 by Kenroy Jordan) BPH (benign prostatic hyperplasia) Hyperlipidemia Most Recent Vital Signs Temperature 37.1 C 08/07/25 00:29 Temperature Source Temporal Artery Scan 08/06/25 19:16 Pulse 75 08/07/25 00:29 Respiratory Rate 19 08/07/25 00:29 Respiratory Effort Normal 08/06/25 19:16 Respiratory Depth Normal 08/06/25 19:16 Respiratory Pattern Normal 08/06/25 19:16 Blood Pressure 149/98 H 08/07/25 00:29 Blood Pressure Mean 94 08/07/25 00:16 Blood Pressure Position Sitting 08/06/25 18:58 Pulse Oximetry 96 08/07/25 00:29 Oxygen Delivery Method Room Air 08/06/25 19:16 Oxygen Flow Rate 0 08/06/25 18:58 Pain Level 2 08/07/25 00:29 Allergies clindamycin Allergy (Unknown, Verified 08/06/25 20:10) Anaphylaxis lincomycin Allergy (Unknown, Verified 08/06/25 20:10) Anaphylaxis Penicillins Allergy (Unknown, Verified 08/06/25 20:10) Anaphylaxis Fish Allergy (Unknown, Uncoded 08/06/25 20:10) Anaphylaxis Zyrtec Allergy (Unknown, Uncoded 08/06/25 20:10) Dizziness/[place] Precautions Isolation Standard precaution 08/06/25 19:16 IV IV Catheter Type [Left Saline Lock Antecubital] IV Catheter Gauge [Left 20 Antecubital] Diagnostics 08/06/25 08/06/25 08/06/25 Range/Units 23:48 21:20 19:49 WBC (4.4-10.8) 10^3/uL RBC (4.36-5.78) 10^6/uL Hgb (13.5-17.5) g/dL Hct (40.0-50.0) % MCV (80-95) fL MCH (27.0-33.0) pg MCHC (32.0-36.0) % RDW (11.8-14.1) % Plt Count (130-400) 10^3/uL MPV (8.0-11.0) fL Immature Gran % % Neutrophils % % Lymphocytes % % Monocytes % % Eosinophils % % Basophils % % Nucleated RBC % (0.0-0.3) % Absolute Neutrophils (1.2-6.7) 10^3/uL Absolute Lymphocytes (1.2-3.4) 10^3/uL Absolute Monocytes (0.1-0.8) 10^3/uL Absolute Eosinophils (0.0-0.7) 10^3/uL Absolute Basophils (0.0-0.2) 10^3/uL VBG Lactate (<or=2.0) mmol/L Sodium (136-145) mmol/L Potassium (3.5-5.1) mmol/L Chloride (98-107) mmol/L Carbon Dioxide (21.0-32.0) mmol/L Anion Gap (3-11) mmol/L BUN (7-18) mg/dL Creatinine (0.70-1.30) mg/dL Est GFR (CKD-EPI 2020) (mL/min/1.73m2) Glucose (74-106) mg/dL Calcium (8.5-10.1) mg/dL Total Bilirubin (0.2-1.0) mg/dL AST (15-37) U/L ALT (16-63) U/L Alkaline Phosphatase (46-116) U/L Ammonia < 10 L (11-32) umol/L Creatine Kinase (39-308) U/L Troponin I (<or=76) ng/L Total Protein (6.4-8.2) g/dL Albumin (3.4-5.0) g/dL Lipase (<78) U/L Urine Color Yellow (Yellow) Urine Clarity Clear (Clear) Urine pH 5.0 (5-8) Ur Specific [place] 1.015 (1.005-1.025) Urine Protein 30 H (Neg-Trace) mg/dL Urine Ketones Negative (Negative) mg/dL Urine Blood Negative (Negative) Urine Nitrite Negative (Negative) Urine Bilirubin Negative (Negative) Urine Urobilinogen 0.2 (Up to 0.2) mg/dL Ur Leukocyte Esterase Negative (Negative) Urine RBC 0-2 (0-2) HPF Urine WBC 5-10 (0-5) HPF Ur Epithelial Cells Many (Negative) HPF Urine Crystals Few Amorphous (Negative) HPF Urine Bacteria Moderate (Negative) HPF Urine Casts Negative (Negative) LPF Urine Mucus Trace (Negative) Ur Culture Indicated? No Urine Glucose >=1000 H (Negative) mg/dL Urine Opiates Screen Ur Barbiturates Screen Ur Tricyclics Screen Ur Amphetamines Screen U Benzodiazepines Scrn Urine Cocaine Screen Ur THC Screen COVID-19 Source Pending SARS-CoV-2 (PCR) Pending Influenza Type A (PCR) Pending Influenza Type B (PCR) Pending RSV (PCR) Pending 08/06/25 08/06/25 Range/Units 19:13 00:00 WBC 10.69 (4.4-10.8) 10^3/uL RBC 4.20 L (4.36-5.78) 10^6/uL Hgb 11.0 L (13.5-17.5) g/dL Hct 35.8 L (40.0-50.0) % MCV 85 (80-95) fL MCH 26.2 L (27.0-33.0) pg MCHC 30.7 L (32.0-36.0) % RDW 15.5 H (11.8-14.1) % Plt Count 330 (130-400) 10^3/uL MPV 11.2 H (8.0-11.0) fL Immature Gran % 0.7 % Neutrophils % 76.1 % Lymphocytes % 12.3 % Monocytes % 8.0 % Eosinophils % 2.1 % Basophils % 0.8 % Nucleated RBC % 0.0 (0.0-0.3) % Absolute Neutrophils 8.14 H (1.2-6.7) 10^3/uL Absolute Lymphocytes 1.31 (1.2-3.4) 10^3/uL Absolute Monocytes 0.85 H (0.1-0.8) 10^3/uL Absolute Eosinophils 0.22 (0.0-0.7) 10^3/uL Absolute Basophils 0.09 (0.0-0.2) 10^3/uL VBG Lactate 1.1 (<or=2.0) mmol/L Sodium 140 (136-145) mmol/L Potassium 4.3 (3.5-5.1) mmol/L Chloride 105 (98-107) mmol/L Carbon Dioxide 23.0 (21.0-32.0) mmol/L Anion Gap 12.0 H (3-11) mmol/L BUN 41 H (7-18) mg/dL Creatinine 2.5 H (0.70-1.30) mg/dL Est GFR (CKD-EPI 2020) 25.18 (mL/min/1.73m2) Glucose 114 H (74-106) mg/dL Calcium 8.6 (8.5-10.1) mg/dL Total Bilirubin 0.3 (0.2-1.0) mg/dL AST 11 L (15-37) U/L ALT 16 (16-63) U/L Alkaline Phosphatase 154 H (46-116) U/L Ammonia (11-32) umol/L Creatine Kinase 64 (39-308) U/L Troponin I 19 (<or=76) ng/L Total Protein 7.4 (6.4-8.2) g/dL Albumin 3.5 (3.4-5.0) g/dL Lipase 75 (<78) U/L Urine Color (Yellow) Urine Clarity (Clear) Urine pH (5-8) Ur Specific [place] (1.005-1.025) Urine Protein (Neg-Trace) mg/dL Urine Ketones (Negative) mg/dL Urine Blood (Negative) Urine Nitrite (Negative) Urine Bilirubin (Negative) Urine Urobilinogen (Up to 0.2) mg/dL Ur Leukocyte Esterase (Negative) Urine RBC (0-2) HPF Urine WBC (0-5) HPF Ur Epithelial Cells (Negative) HPF Urine Crystals (Negative) HPF Urine Bacteria (Negative) HPF Urine Casts (Negative) LPF Urine Mucus (Negative) Ur Culture Indicated? Urine Glucose (Negative) mg/dL Urine Opiates Screen Pending Ur Barbiturates Screen Pending Ur Tricyclics Screen Pending Ur Amphetamines Screen Pending U Benzodiazepines Scrn Pending Urine Cocaine Screen Pending Ur THC Screen Pending COVID-19 Source SARS-CoV-2 (PCR) Influenza Type A (PCR) Influenza Type B (PCR) RSV (PCR) 08/06/25 21:20 Urine Culture - Pending Urine - Voided 08/06/25 19:49 Blood Culture - Pending Blood 08/06/25 19:13 Blood Culture - Pending Blood Intake and Output - 24 Hour Total 08/06/25 18:48 thru 08/07/25 00:31 Intake Total 300 Balance 300 Weight 96.8 kg Intake: Oral 300 Other: # Bowel Movements 1 Falls Risk Assessment History of Falls No History 08/06/25 19:16 Contributing Factors Confusion,Impairments 08/06/25 19:16 Ambulatory Aids Uses ambulatory device 08/06/25 19:16 Tubes/Lines None 08/06/25 19:16 Gait Evaluation W/any additional score 08/06/25 19:16 Cognition No cognitive impairment 08/06/25 19:16 Fall Total Score 41 08/06/25 19:16 Level of Risk Moderate Risk 08/06/25 19:16 Problems (Last Reviewed 08/06/25 @ 23:18 by Kenroy Jordan) CKD (chronic kidney disease) (Chronic) UTI (urinary tract infection) (Acute) Acute delirium (Acute) Constipation (Acute) Depression (Chronic) CAD (coronary artery disease), [place] coronary artery (Chronic) v v v v v v v v v Sending and/or Receiving Nurses: Please use comment section below to note any information pertinent to the patient hand-off not included above. Information / Comments:Brought the pt up to the unit per ED bed around 0050. Pt was transferred to MS bed assisted by two persons with use of walker and GB.Pt is irritable in pain while ambulating.With PIV on his left AC.Pt brought clothes and a hat with him.Situated pt into bed comfortably.Able to make needs known.Christina care done d/t bladder incontinence. Report received from:Received a good report from PAUL Lynch(ED nurse)around 0025.
[2025-08-08] MEDS: cefTRIAXone 1 GM/50 ML BAG IVPB (01:44)
[2025-08-08 06:47] LABS: HCT 35.4 % (40.0-50.0); HGB 11.1 g/dL (13.5-17.5); MCH 26.9 pg (27.0-33.0); MCHC 31.4 % (32.0-36.0); MCV 86 fL (80-95); MPV 10.7 fL (8.0-11.0); Platelet Count 319 10^3/uL (130-400); RBC 4.13 10^6/uL (4.36-5.78); RDW 16.0 % (11.8-14.1); RDW-SD 49.5 fL; WBC 8.40 10^3/uL (4.4-10.8)
[2025-08-08 07:08] LABS: ALT 14 U/L (16-63); AST 11 U/L (15-37); Albumin 3.3 g/dL (3.4-5.0); Alkaline Phosphatase 140 U/L (46-116); Anion Gap 11.3 mmol/L (3-11); BUN 31 mg/dL (7-18); Bilirubin, Total 0.3 mg/dL (0.2-1.0); CO2 21.7 mmol/L (21.0-32.0); Calcium 8.3 mg/dL (8.5-10.1); Chloride 109 mmol/L (98-107); Estimated GFR 35.00 (mL/min/1.73m2); Glucose 90 mg/dL (74-106); Magnesium 2.5 mg/dL (1.8-2.4); Potassium 4.6 mmol/L (3.5-5.1); Sodium 142 mmol/L (136-145); Total Protein 6.9 g/dL (6.4-8.2)
[2025-08-08 07:47] VITALS: BP 127/57; PULSE 65; RESP 16; TEMP 36.5; O2SAT 98
--- NOTE | 2025-08-08 09:04 | PDOC.CMPRO ---
Date of service: 08/08/25 Time of Service: 09:04 Care Management Progress Note Discharge Anticipated Barriers to Discharge: None Identified Patient/Family Education Needs: Review discharge instructions, discuss Ask Me Three Transportation: Private vehicle Plan: Anticipate that [facility] will return to the [facility] once medically stable. He will f/u with the facility provider and continue per his plan of care. He will transport via [facility] wheelchair van. CM will continue to follow. Social Determinants of Health Screening Social Determinants of health last assessed in clinic: 08/07/25 Will the Patient Participate in the Screening?: Yes Do you worry about having a steady place to live?: no Problems where you live: no known problems In the past 12 months, have you had to go without electric, gas, oil or water in your home?: no Has lack of transportation kept you from medical appointments or from doing things needed for daily living?: no Has anyone in your life made you feel unsafe or unsupported?: no How hard is it for you to pay for the very basics like food, housing, medical care, and heating? Would you say it is:: Not hard at all Do you want help finding or keeping work or a job?: I do not need or want help If for any reason you need help with day-to-day activities such as bathing, preparing meals, shopping, managing finances, etc., do you get the help you need?: I don?t need any help How often do you feel lonely or isolated from those around you?: Never Do you speak a language other than [place] at home?: No Does the patient want assistance with any of the above?: No
[2025-08-08] MEDS: Venlafaxine 75 MG CAPCR PO (10:33)
[2025-08-08] MEDS: Docusate Sodium 100 MG CAP PO (10:34)
[2025-08-08] MEDS: Venlafaxine 150 MG CAPCR PO (10:34)
[2025-08-08] MEDS: Pantoprazole 40 MG TABCR PO (10:35)
[2025-08-08] MEDS: Ferrous Gluconate 324 MG TAB PO (10:36)
[2025-08-08] MEDS: Cholecalciferol (Vitamin D3) 1,000 UNIT TAB 1000 UNITS PO (10:36)
[2025-08-08] MEDS: Finasteride 5 MG TAB PO (10:36)
[2025-08-08] MEDS: Empaglifozin 10 MG TAB PO (10:37)
[2025-08-08] MEDS: Carvedilol 3.125 MG TAB PO (10:37)
[2025-08-08] MEDS: Aspirin 81 MG CHEW PO (10:37)
[2025-08-08] MEDS: Normal Saline Flush 10 ML SYR IVP (10:44)
[2025-08-08 10:59] VITALS: BP 112/59; PULSE 69; RESP 16; TEMP 36.3; O2SAT 97
--- NOTE | 2025-08-08 11:40 | PT.INNT ---
PT Notes Visit Reasons: Delusions, UTI, CKD with Dehydration, Constipation Patient refused PT services at this time. Stated that he wanted to rest while on this admission. , AYSE Manzanares, and Nurse tolliver were apprised of patient's decision,
--- NOTE | 2025-08-08 12:18 | DSE_ITS ---
Date of service: 08/08/25 Time of Service: 12:18 DS: Diagnosis Discharge Diagnosis (1) Acute delirium: Status: Acute (2) UTI (urinary tract infection): Status: Acute (3) CKD (chronic kidney disease): Status: Chronic (4) Constipation: Status: Acute (5) BPH (benign prostatic hyperplasia): (6) CAD (coronary artery disease), [place] coronary artery: Status: Chronic (7) Depression: Status: Chronic (8) DVT prophylaxis: Status: Acute Discharge Plan Disposition Patient Disposition: Half-Way Facility(SNF) Condition: Improving Discharge Details Reason For Visit: Delusions, UTI, CKD with Dehydration, Constipation Admit Date/Time: 08/06/25 23:48 Admit Provider: Kenroy Jordan Attending Provider: Kenroy Jordan Primary Care Provider: Evelin Wise Hospital Course Hospital Course: 80-year-old male patient who resides at the [facility] recently having a fractured hip 07/17 and having chronic COPD, CKD4, and CHF and being a permanent resident at that facility who presented with confusion, apparent delusions, and visual hallucinations. He was diagnosed with a UTI and was being treated with trimethoprim/sulfamethoxazole. He was also being treated with oxycodone for pain and diazepam 5mg for muscle spasms. His ED evaluation was significant for opiates and benzos in his urine and a CT A/P just showing constipation. He was admitted and oxycodone and diazepam were held. His UTI was treated with ceftriaxone. The culture from 07/31 was growing sensitive klebsiella and the reculture was NGTD. He was treated wiht PEG powder BID for constipation and had multiple large stools. This shoud continue daily at this point. His mental status gradually cleared and he was no longer hallucinating. He was eating and drinking. He declined PT. He was discharged back to rehab. He is also on high dose SNRI, trazodone, and recently mirtazipine. Consolidation of depression medications should be considered to lower risk of polypharmacy. Home Meds and New Rx's Prescriptions: New polyethylene glycol 3350 17 gram Powder In Packet 17 g PO DAILY Qty: 30 0RF Continued acetaminophen 325 mg capsule See Rx Instructions PO Q6H PRN Rx Instructions: 1 GM Q 6h PRN orally every 6 hours PRN; every 5 hours as needed for mild pain ondansetron HCl 4 mg tablet 4 mg PO Q6H PRN albuterol sulfate 90 mcg/actuation aero powdr breath act w/sensor 2 inh inhalation Q4H PRN (Reason: shortness of breath or wheezing) Qty: 1 0RF ferrous gluconate 324 mg (38 mg iron) tablet 324 mg PO DAILY carvedilol 3.125 mg tablet 3.125 mg PO BID Rx Instructions: must administer with a meal/food sulfamethoxazole-trimethoprim [Bactrim DS] 800-160 mg tablet 1 tab PO BID Rx Instructions: END DATE 08/13 pantoprazole 40 mg Tablet,Delayed Release (Dr/Ec) 40 mg PO DAILY rosuvastatin 20 mg tablet 20 mg PO DAILY tamsulosin 0.4 mg capsule 0.4 mg PO DAILY venlafaxine 150 mg capsule,extended release 24hr 150 mg PO DAILY Patient Comments: take with 75mg venlafaxine for total of 225mg venlafaxine 75 mg tablet 75 mg PO DAILY aspirin 81 mg tablet,chewable 81 mg PO DAILY empagliflozin 10 mg tablet 10 mg PO DAILY finasteride 5 mg tablet 5 mg PO DAILY magnesium hydroxide [Milk of Magnesia] 400 mg/5 mL suspension 30 ml PO DAILY PRN Rx Instructions: Give 30 ml by mouth every 24 hours as needed for constipation give at bedtime if no BM in 3 days. prednisolone acetate 1 % drops,suspension 1 drp ophthalmic (eye) DAILY Rx Instructions: 1 drop in right eye one time per day for eye pain. brinzolamide 1 % drops,suspension 1 drp ophthalmic (eye) TID Rx Instructions: Left Eye only simethicone [Gas Relief (simethicone)] 125 mg capsule 125 mg PO DAILY PRN trazodone 150 mg tablet 150 mg PO QHS docusate sodium 100 mg capsule 100 mg PO DAILY PRN bisacodyl [Dulcolax (bisacodyl)] 10 mg suppository 10 mg [place] DAILY PRN glucagon 1 mg kit 1 mg IM PRN dextrose [Glucose Gel] 40 % gel 10 g PO Q15M PRN Rx Instructions: until symptoms of low blood sugar are controlled cholecalciferol (vitamin D3) 25 mcg (1,000 unit) Tablet 1,000 unit PO DAILY Qty: 90 0RF Discontinued diazepam 5 mg tablet 5 mg PO QHS Discharge Instructions Instructions: Constipation, Adult ED Additional Instructions: continue Miralax for constipation We recommend stopping the oxycodone and diazepam. Short acting and low dose medications should be preferred in the future. finish your antibiotic for UTI as previously prescribed until 08/11 Referrals: Evelin Wise MD [Primary Care Provider, Medicine] Activity:: Activity as Tolerated Equipment/Supplies:: No Equipment Needed Diet:: Low Sodium Discharge Orders Discharge Orders: Discharge Order (Routine); Ordered 08/08/25 Ordered By: Humble Lee DS: Summary Time Spent with Patient providing and/or coordinating discharge services: Greater than 30 minutes Status at Discharge Functional status at discharge: uses cane/walker Overall status at discharge: patient is back to baseline Mental Status: mental status grossly normal Speech and Movement: speech and movement normal Mood: dysthymic mood Affect: normal affect Quality:SDOH Health Related Social Needs: Health related social needs daily activities lonely/is olated Health related social needs details SNIF Exam Narrative Exam Narrative: Gen: Alert and oriented to self, place, day/month/year. HEENT: No icterus, left pupil mid sized and reactive, right eye glassy. MMM, OP benign LUNGS: CTAB, normal effort CV: RRR, no M/G/R. ABD: soft, NT/ND Ext: no c/c, trace alhaji LE edema. Neuro/psych: CN grossly intact x right pupil (chronic). normal movment 4 ext. no tremor. Normal thought process. Denies hallucinations currently (admits was seeing people previously) or clear delusions. Psych Mental Status: mental status grossly normal Speech and Movement: speech and movement normal Mood: dysthymic mood Affect: normal affect DS: Data Vitals/I&O Vitals and I&O: Vital Signs Temperature 36.3 C L 08/08/25 10:59 Temperature Source Temporal Artery Scan 08/08/25 10:59 Pulse 69 08/08/25 10:59 Respiratory Rate 16 08/08/25 10:59 Respiratory Effort Normal 08/07/25 01:19 Respiratory Depth Normal 08/07/25 01:19 Respiratory Pattern Normal 08/07/25 01:19 Blood Pressure 112/59 L 08/08/25 10:59 Blood Pressure Mean 76 08/08/25 10:59 Blood Pressure Position Sitting 08/06/25 18:58 Pulse Oximetry 97 08/08/25 10:59 Oxygen Delivery Method Room Air 08/08/25 10:59 Oxygen Flow Rate 0 08/08/25 10:59 Pain Level 0 08/08/25 10:59 Comment PT refused vitals. Combative. 08/08/25 03:25 Intake & Output 08/07/25 08/08/25 08/08/25 23:59 11:59 23:59 Intake Total 60 / 610 530 / 530 Output Total 200 / 200 50 / 50 Balance -140 / 410 480 / 480 Intake: IV 60 / 70 50 / 50 Oral 480 / 480 Output: Urine 200 / 200 50 / 50 Other: Urine Color Yellow Yellow Urine Appearance Clear Urine Odor Normal Comment before the pt voided, bladder scan read 232ml. The pt then voided out approx 150ml. PVR scan read 62ml. Pt has been incontinent wearing briefs. Stool Size Large Large Stool Characteristics Soft Formed Data Completed and Pending Labs on day of discharge: Labs from last 24 hours 08/08/25 08/07/25 08/07/25 06:39 15:45 12:39 WBC 8.40 RBC 4.13 L Hgb 11.1 L Hct 35.4 L MCV 86 MCH 26.9 L MCHC 31.4 L RDW 16.0 H Plt Count 319 MPV 10.7 Sodium 142 Potassium 4.6 Chloride 109 H Carbon Dioxide 21.7 Anion Gap 11.3 H BUN 31 H Creatinine 1.9 H Est GFR (CKD-EPI 2020) 35.00 Glucose 90 Calcium 8.3 L Magnesium 2.5 H Total Bilirubin 0.3 AST 11 L ALT 14 L Alkaline Phosphatase 140 H Total Protein 6.9 Albumin 3.3 L Urine Opiates Screen Positive A Urine Methadone Screen Negative Ur Barbiturates Screen Negative Ur Tricyclics Screen Negative Ur Amphetamines Screen Negative U Benzodiazepines Scrn Positive A Urine Cocaine Screen Negative Ur THC Screen Negative COVID-19 Source Nasopharynx SARS-CoV-2 (PCR) Negative Influenza Type A (PCR) Negative Influenza Type B (PCR) Negative RSV (PCR) Negative Preliminary micro results at discharge 08/06/25 21:20 Urine - Voided Urine Culture - Preliminary 08/06/25 19:49 Blood Blood Culture - Preliminary NO GROWTH 24 HOURS 08/06/25 19:13 Blood Blood Culture - Preliminary NO GROWTH 24 HOURS PFSH All Active Problems (Updated 08/07/25 @ 15:26 by Humble Lee) DVT prophylaxis (Acute) CKD (chronic kidney disease) (Chronic) UTI (urinary tract infection) (Acute) Acute delirium (Acute) Constipation (Acute) Osteoporosis (Chronic) Anemia due to blood loss (Acute) Advanced care planning/counseling discussion (Acute) Palliative care patient (Acute) CKD (chronic kidney disease) stage 3, GFR 30-59 ml/min (Acute) Frequent falls (Acute) Chronic anticoagulation (Acute) Recurrent gastrointestinal hemorrhage (Acute) Hiatal hernia (Chronic) Gastric ulcer (Acute) Depression (Chronic) CAD (coronary artery disease), [place] coronary artery (Chronic) NSTEMI. Stent placed 01/29/2024 [facility] Acute blood loss anemia (Chronic) Acute upper GI bleed (Acute) Closed hip fracture (Acute) Medical History BPH (benign prostatic hyperplasia) Hyperlipidemia Social History Smoking/Tobacco Use Status: Never Smoking risk assessment performed?: Yes Alcohol Intake: never Drug use: Never Substance use type: does not use Housing: intermediate Do you feel safe at home: Yes Do you feel safe in your relationship?: Yes Time Spent with Patient Time Spent with Patient: <45 minutes Time was spent: preparing to see the patient(eg.review tests), obtaining and/or reviewing separately otained hiistory, ordering medications,tests, procedures, referring, communicating with other health residential care facility manager, indepentently interpreting results, counseling the patient and care coordination
--- NOTE | 2025-08-08 13:00 | PDOC.CMDIS ---
Date of service: 08/08/25 Time of Service: 13:00 LACE Index Scoring Tool Questions: Length of Stay (in days): 1 Was the patient admitted via the E.D.?: Yes Comorbidities: Previous M.I. and Liver or Renal Disease E.D. Visits: 4 Answers: Total Score: 13 Risk of Readmission: High Risk Care Management Discharge Plan Reason for Hospitalization: Uti Discharge Plan: Anticipate that Humble will return to the [facility] once medically stable. He will f/u with the facility provider and continue per his plan of care. He will transport via [facility] wheelchair van. Patient/Family Education Needs: Review discharge instructions, discuss Ask Me Three Services Needed at Discharge: Shelter Facility SDOH Health Related Social Needs: Health related social needs daily activities lonely/isolated Health related social needs details SNIF
== END 2025-08-08 13:25 | disposition skilled nursing facility (03) | DRG 690 ==
LOC: ER 08-07 00:08 → MS 08-07 01:05
PROVIDERS: Admitting Provider Family Medicine; Emergency Provider Physician Assistant; PCP Nurse Practitioner Family; Responsible Provider Family Medicine; Visit Provider Family Medicine
DX: N30.01 Acute cystitis with hematuria (principal); N18.4 Chronic kidney disease, stage 4 (severe); K59.01 Slow transit constipation; N40.0 Benign prostatic hyperplasia without lower urinary tract symptoms; I25.10 Atherosclerotic heart disease of native coronary artery without angina pectoris; F23 Brief psychotic disorder; B96.1 Klebsiella pneumoniae [K. pneumoniae] as the cause of diseases classified elsewhere; E86.0 Dehydration; M81.0 Age-related osteoporosis without current pathological fracture; R29.6 Repeated falls; Z79.01 Long term (current) use of anticoagulants; K44.9 Diaphragmatic hernia without obstruction or gangrene; E78.5 Hyperlipidemia, unspecified; I25.2 Old myocardial infarction; Z95.5 Presence of coronary angioplasty implant and graft
CPT/HCPCS: 00123; 36415; 80053; 80307; 82550; 83690; 85027; 87040; 87637; 99285; 71045; 74176; 81003; 81015; 82140; 83605; 83735; 84443; 84484; 85025; 87086; 99223; 99232; 99238; J0696; J1650

== ENCOUNTER 2025-09-01 16:50 | Outpatient (REF) | payer MEDICARE, SELFPAY ==
[2025-09-01 19:53] LABS: COVID-19 PCR Negative (Negative); RSV PCR Negative (Negative)
== END 2025-09-01 16:51 | disposition home or self-care (01) ==
LOC: LBN 16:50
PROVIDERS: PCP Nurse Practitioner Family; Visit Provider Nurse Practitioner Adult Health
DX: J06.9 Acute upper respiratory infection, unspecified (principal)
CPT/HCPCS: 87637

== ENCOUNTER 2025-09-16 14:29 | Outpatient (REF) | payer MEDICARE, SELFPAY ==
[2025-09-22 14:59] LABS: Helicobacter pylori Ag, Feces Negative (Negative)
== END 2025-09-16 14:30 | disposition home or self-care (01) ==
LOC: LBN 14:29
PROVIDERS: PCP Nurse Practitioner Family; Visit Provider Nurse Practitioner Adult Health
DX: R19.7 Diarrhea, unspecified (principal)
CPT/HCPCS: 87338

== ENCOUNTER 2025-10-14 14:13 | Outpatient (REF) | payer MEDICARE, SELFPAY ==
[2025-10-14 15:45] LABS: Hemoglobin A1C 4.9 % (<5.7)
== END 2025-10-14 14:14 | disposition home or self-care (01) ==
LOC: LBN 14:13
PROVIDERS: PCP Nurse Practitioner Family; Visit Provider Nurse Practitioner Adult Health
DX: E11.9 Type 2 diabetes mellitus without complications (principal)
CPT/HCPCS: 83036